=== PATIENT | female | born 1965 ===

== ENCOUNTER 2021-01-05 18:41 | Inpatient (IN) | payer MEDICAID, SELFPAY ==
[2021-01-05 18:50] VITALS: BMI 26.6
[2021-01-05 19:01] VITALS: BP 141/86; PULSE 118; RESP 18; TEMP 36.6; O2SAT 94
--- NOTE | 2021-01-05 19:50 | PC.NURSE ---
pt initially refusing to cooperate with staff, did not want to get changed into hospital gown or put on bracelet. she attempted to walk around security staff but after some reassurance she decided to cooperate and change into hospital gown. pt still refusing to wear bracelet and refusing to have vitals taken at this time. pt currently in room laying supine in bed with lights off and tv off.
--- NOTE | 2021-01-05 21:10 | PC.NURSE ---
pt still refusing vitals at this time. pt laying supine in bed. respirations even and unlabored. no signs of distress noted at this time.
[2021-01-05 22:03] VITALS: RESP 16
--- NOTE | 2021-01-05 22:41 | ED_ITS ---
HPI - Psych General Chief Complaint: Psychiatric Symptoms Stated Complaint: SECTION 12 Time Seen by Provider: 01/05/21 19:02 Source: patient and EMS Mode of arrival: EMS Limitations: no limitations History of Present Illness HPI Narrative: Patient comes to emergency room by EMS. EMS reports that the patient has a history of unspecified psychotic disorder, she was brought in on Section 12 for acting erratically, running into traffic, speaking in tongues, and being paranoid. The family called 911 due to this. Patient is here in the emergency room, states she is very angry that her family called 911, states that she came from [place] to support her daughter as she is going through divorce. States that the son-in-law is requesting that the patient gives her a copy of her ID so he can request social sciences research scientist for the family. Patient denies suicidal or homicidal ideation. Patient states that she has not been in the hospital for mental illness in more than 3 years, accepts that she has been diagnosed with depression in the past. Patient states that she is very disappointed that her daughter did not defend her from the son-in-law. Patient states she wants to go back to [place] Related Data Allergies Allergy/AdvReac Type Severity Reaction Status Date / Time No Known Allergies Allergy Verified 01/05/21 22:44 Review of Systems Review of Systems: Constitutional : No Weight loss, No Fever, No Chills, No Night Sweats, No Fatigue, No Malaise ENT/Mouth : No Hearing loss, No Ear Pain, No Nasal Congestion, No Sinus Pain, No Hoarseness, No sore throat, No Rhinorrhea, No Swallowing Difficulty Eyes: No Eye Pain, No Swelling, No Redness, No Foreign Body, No Discharge, No Vision Changes Cardiovascular : No Chest Pain, No SOB, No Dyspnea on Exertion, No Orthopnea, No Edema, No Palpitations Respiratory : No Cough, No Sputum, No Wheezing, No Smoke Exposure, No Dyspnea Gastrointestinal : No Nausea, No Vomiting, No Diarrhea, No Constipation, No abdominal Pain, No Hematochezia, No Melena Genitourinary : no irregular bleeding, No Dysuria, No Urinary Frequency, No Hematuria, No Urinary Incontinence, No Urgency, No Flank Pain, No Urinary Flow Changes, No Hesitancy Musculoskeletal : No joint pain, No Myalgias, No Joint Swelling Skin : No Skin Lesions, No rash Neuro : No Weakness, No Numbness, No Paresthesias, No Loss of Consciousness, No Dizziness, No Headache Psych : History of depression, denies suicidal or homicidal ideation, complaining of feeling angry Heme/Lymph: No Bruising, No Bleeding,No Lymphadenopathy Endocrine : No Polyuria, No Polydipsia, No Temperature Intolerance [facility] Past Medical History Medical History (Updated 01/05/21 @ 22:43 by Therese Varela MD) Depression Social History Social History Alcohol intake: never Patient Tobacco Use Status: Current everyday Tobacco user Use of substances other than those prescribed or required for medical reasons: No Physical Exam Vital Signs: Vital Signs: Last Vital Signs Temp 97.9 F 01/05/21 19:01 Pulse 118 H 01/05/21 19:01 Resp 16 01/05/21 22:03 BP 141/86 H 01/05/21 19:01 Pulse Ox 94 01/05/21 19:01 Body Mass Index 26.6 Appearance: Alert. Oriented X3. No acute distress. Eyes: Pupils equal, round and reactive to light. ENT: Pharynx normal. Neck: Normal inspection. Neck supple. No lymph nodes noted. No crepitus CVS: Normal heart rate and rhythm. Pulses normal. Normal S1 and S2 Respiratory: No respiratory distress. Breath sounds normal. No Wheezing. No rales Abdomen: Soft and nontender. No rigidity. No distention. good BS x4 Skin: Skin warm and dry. Normal skin color. Normal skin turgor. Extremities: No lower extremity edema. No lower extremity edema. No Lacerations. No Rash Neuro: Oriented X 3. No motor deficit. No sensory deficit. Moving all extermities. No slurred speech. Psych: Speaking in full sentences, good eye contact, speaking coherently Course Course Course Narrative: on arrival, patient refused blood work, urinalysis. Patient finally accepted to change her clothes. [facility] consult pending
--- NOTE | 2021-01-05 23:19 | PC.NURSE ---
pt more pleasant and cooperative at this time, conversing and laughing with tech about current situation/home situation. ice water and turkey sandwich given to pt. pt still refusing to wear bracelet. no distress noted at this time.
[2021-01-06 03:00] VITALS: RESP 16
--- NOTE | 2021-01-06 07:48 | PC.NURSE ---
Addendum entered by Karli Lind RN 01/06/21 07:50: Pt states that she does not take any medications at home. There are no medications on her external medication list. Original Note: Pt did allow for vital signs to be taken. Pt was updated on the status of her stay being informed that there was a section 12 filed and we are awaiting a bed at this time. Pt is very upset but is not violent at this time.
[2021-01-06 08:11] VITALS: BP 125/72; PULSE 81; RESP 18; TEMP 35.9; O2SAT 97
--- NOTE | 2021-01-06 11:37 | PC.NURSE ---
Pt in bed at this time. About 1hr ago pt noted to be pacing in the common area peeking in another patient's room. Pt was offered a puzzle at that time. She replied that she wanted her belongings and to go home. The plan of care and section-12 status were reviewed with her again. She then went to room to lay back down.
--- NOTE | 2021-01-06 13:28 | PC.NURSE ---
Pt ate lunch though had earlier stated that she did not want one. She brought her empty tray to nurses station counter and went villarreal to bed.
--- NOTE | 2021-01-06 16:36 | PC.NURSE ---
Pt in the shower at this time. She is non-violent at this time though appears agitated.
[2021-01-06 18:22] VITALS: BP 123/81; PULSE 63; RESP 15; O2SAT 97
--- NOTE | 2021-01-06 19:06 | PC.NURSE ---
Patient requested and given ice water. Continues to refuse lab draws at this time. Otherwise calm/cooperative. Will continue to monitor.
--- NOTE | 2021-01-07 07:26 | PC.NURSE ---
report taken from maciel gardner pt here for reported erratic behavior by family, has been non compliant w meds for several years and is recently transplanted to the area from [place]. pt sitting up at bedside, eating breakfast, requests extra sugar, provided. inpt bed search.
--- NOTE | 2021-01-07 10:10 | PC.NURSE ---
pt asking to have things and to leave, Haley been here for several days and none of this is warranted and im not obliged to stay . pt reeducated about sec 12 and inpt bed search process. pt appears agitated, sts im not from this state and nothing of mine is even here . pt asked if this rn may speak w daughter and pt appears more agitated, asks this rn is you can call the karley of this school, you can call the leaders whoever is in charge of this [facility] . this rn leaving room d/t pt verbally escalating. pt remains lying in bed nad.
[2021-01-07 10:48] VITALS: RESP 16
--- NOTE | 2021-01-07 11:17 | PC.NURSE ---
pt continues to refuse vital signs, refusing to make a lunch order choice.
--- NOTE | 2021-01-07 13:08 | PC.NURSE ---
pt ambulating around [facility], not speaking w this rn when addressed about mental status, given lunch tray, left at bedside. pt appears to be investigating differnt items on unit (posters in [place], light switches, televisions). appears to be within behavioral control att. [facility].
--- NOTE | 2021-01-07 13:23 | PC.NURSE ---
pt daughter on phone, pt expresses she wouldnt like this rn to update daughter via phone, but pt will speak w daughter on [employer] telephone.
--- NOTE | 2021-01-07 16:50 | PC.NURSE ---
dr morillo at bedside to evaluate pt
--- NOTE | 2021-01-07 17:17 | PC.NURSE ---
pt refusing to sign conditional voluntary w dr morillo, dr morillo signed sec 12 in pt chart for inpt admission.
--- NOTE | 2021-01-07 19:26 | PC.NURSE ---
Report from Cesar RN, pt sleeping at this time, resp reg and even, NAD> Plan for M5 admission.
[2021-01-07 22:24] VITALS: RESP 16
[2021-01-07 23:48] VITALS: BP 121/73; PULSE 72; RESP 16; TEMP 35.8; O2SAT 97
[2021-01-08 07:28] VITALS: RESP 16
[2021-01-08 08:40] VITALS: RESP 15
--- NOTE | 2021-01-08 10:19 | PC.NURSE ---
cleopatra (social work lecturer) at bedside, pt is refusing covid swab, lab work and vs. pt continues to state that she is involuntary and is refusing all tx and care.
--- NOTE | 2021-01-08 10:22 | PC.NURSE ---
pt continues to states that she wants her belongings and she wants to leave this place
[2021-01-08 10:23] VITALS: RESP 16
--- NOTE | 2021-01-08 11:35 | PC.NURSE ---
dr. aguayo and [facility] ([facility]) at bedside encouraging pt to have covid swab done, pt is still adamantly refusing. pt is in bed resting at this time.
--- NOTE | 2021-01-08 13:33 | PC.NURSE ---
pt refused lunch. pt was offered/encouraged fluids. pt refused a sandwich and crackers.
[2021-01-08 14:29] VITALS: RESP 16
--- NOTE | 2021-01-08 15:36 | MHC.CARE ---
1400 Left message for patient's sister who is listed as emergency contact, left number for POD RN. If she calls back please ask if possibly patient has had a COVID vaccination.
--- NOTE | 2021-01-08 15:57 | PM.PSYCN ---
History of Present Illness Date of Service: 01/07/21 Chief Complaint: SECTION 12 Reason for Consult: assess HPI Narrative: pt refused to speak with signwriter or answer any of writers questions except to say no thankyou when offered CV. Given report of patients recent hx (disorganized, running in traffic) and current presentation, signwriter signed Section 12 a/b for inpt admission to further assess patient for her safety. [facility] Medical History (Updated 01/05/21 @ 22:43 by Therese Varela MD) Depression Diagnostics Vital Signs (24Hr): Vital Signs - 24 hr 01/07/21 22:24 01/07/21 23:48 01/08/21 07:28 Temperature 96.5 F L Pulse Rate 72 Respiratory Rate 16 16 16 Blood Pressure 121/73 Pulse Oximetry 97 01/08/21 08:40 01/08/21 10:23 01/08/21 14:29 Temperature Pulse Rate Respiratory Rate 15 16 16 Blood Pressure Pulse Oximetry Body Mass Index 26.6 Medications Medications Current Medications Generic Name Dose Route Start Last Admin Trade Name Freq PRN Reason Stop Dose Admin Pharmacy Consult 1 each 01/08/21 08:04 Consult Rx Perform Med Rec MISCELLANE ONCE PRN Consult order Allergies Allergies Allergy/AdvReac Type Severity Reaction Status Date / Time No Known Allergies Allergy Verified 01/05/21 22:44 Assessment & Plan Greater than 50% of the session was spent on counseling and/or coordination of care
--- NOTE | 2021-01-08 17:25 | PC.NURSE ---
pt is answering nursing staff questions, explained that patient needed covid test to continue plan of care,pt refuses states it is DNA that legitimizes her legal holding stand point and she does not believe there is documentation legitimizing her being held here in ED. education and redirection provided. pt continues to refuse treatment. pt toileted self prior to rn interaction. offered dinner tray order.
--- NOTE | 2021-01-08 18:34 | PC.NURSE ---
pt given dinner tray, asked if she would like to perform the covid swab at this time. pt refused.
[2021-01-09] VITALS: RESP 16
--- NOTE | 2021-01-09 00:48 | PC.NURSE ---
PATIENT IS AMBULATING STEADILY AROUND THE UNIT. ATTEMPTING VITALS AND TALKING WITH PATIENT ABOUT LAB WORK. REFUSING ALL TREATMENT AT THIS TIME. BEING RUDE TO STAFF, CALLING ONE STAFF MEMBER YOU ARE FATTER AND SHORTER THAN I REMEMBER
[2021-01-09 06:00] VITALS: RESP 14
--- NOTE | 2021-01-09 07:15 | PC.NURSE ---
pt sleeping in bed at this time, resp even and unlabored. plan to get covid swab today.
--- NOTE | 2021-01-09 09:23 | P.CNPS_ITS ---
History of Present Illness Date of Service: 01/09/21 Chief Complaint: SECTION 12 HPI Narrative: engineering writer went to meet with patient again; she looked at engineering writer but refused to talk or respond to writers questions. As engineering writer continued to try and engage patient, pt put covers over her head and remained silent. [facility] Medical History (Updated 01/05/21 @ 22:43 by Therese Varela MD) Depression Diagnostics Vital Signs (24Hr): Vital Signs - 24 hr 01/08/21 10:23 01/08/21 14:29 01/09/21 00:00 Respiratory Rate 16 16 16 01/09/21 06:00 Respiratory Rate 14 Body Mass Index 26.6 Medications Medications Current Medications Generic Name Dose Route Start Last Admin Trade Name Freq PRN Reason Stop Dose Admin Pharmacy Consult 1 each 01/08/21 08:04 Consult Rx Perform Med Rec MISCELLANE ONCE PRN Consult order Allergies Allergies Allergy/AdvReac Type Severity Reaction Status Date / Time No Known Allergies Allergy Verified 01/05/21 22:44 Assessment & Plan Greater than 50% of the session was spent on counseling and/or coordination of care
--- NOTE | 2021-01-09 09:27 | PC.NURSE ---
call placed to homer olea for more info regarding pt. pt recently moved from [place] to live with her daughter (who is listed as sister in contacts) and son in law. awais called homer olea for section 12 transport assitance to [facility]. Nuha Stroud in pod to assist with calling family.
--- NOTE | 2021-01-09 12:12 | PC.NURSE ---
plan for patient to go to at some time today. spoke with oksana daily and isolation area will be okayed for this patient. plan for transport with security will be created with rest of team today.
[2021-01-09 13:51] VITALS: RESP 16
[2021-01-09 15:08] LABS: COVID-19 Test Negative (Negative)
--- NOTE | 2021-01-09 16:13 | PC.ADMIT ---
WHEN T/W APPROACHED PT TO CONDUCT ADMISSION PROCESS PT. STATED I'M NOT SIGNING MYSELF INTO THIS HOSPITAL, NO, I'M NOT DOING ANYTHING , THERE IS NOTHING WRONG WITH ME, I DON'T NEED THIS KIND OF BEHAVIOR. PT. REFUSED VS, SHE REFUSED ADMISSION PROCESS AND NURSING CARE WHILE PT. SAT IN GROUP ROOM B, IN ROCKING CHAIR, GOING BACK AND FORTH. SHE TALKED TO HERSELF, WHISPERED, PT. HAS DX OF SCHIZOPHRENIA. THERE ARE NO MEDICATIONS, NO LABS DONE, NO EMERGENCY -CONTACTS, NO PCP. PT. IS HERE ON A 12 B .
[2021-01-09 16:31] VITALS: RESP 18
--- NOTE | 2021-01-09 16:31 | P.HPPS_ITS ---
HPI Chief Complaint: Assess for safety psychosis Sources of Information: patient interviewed, chart reviewed and crisis/core team assessment reviewed Additional Sources of Information: Patient's daughter gave field underwriter history HPI Subjective Notes: Duarte Warning Medical Evaluation Reviewed: Yes PMFSH Medical History (Updated 01/09/21 @ 15:52 by Valorie Ahuja) ADHD Chronic uveitis of both eyes Cystoid macular edema Depression GERD (gastroesophageal reflux disease) MDD (major depressive disorder) Migraine Ovarian cyst Prediabetes Premenstrual dysphoric disorder Schizophrenia Surgical History (Updated 01/09/21 @ 14:11 by Valorie Ahuja) History of salpingo-oophorectomy Diagnostics Vital Signs (24Hr): Vital Signs - 24 hr 01/09/21 00:00 01/09/21 06:00 01/09/21 13:51 Respiratory Rate 16 14 16 Body Mass Index 26.6 Labs Labs: Laboratory Results - last 48 hr 01/09/21 14:41 COVID-19 (THEO) Negative COVID-19 Clin Com See Note Meds/Allergies Meds Home Medications Acetaminophen (Acetaminophen 325 Mg Tablet) 650 mg PO Q6H PRN PRN Reason: Headache/Pain Mild Scale (1-3) Al Hydroxide/Mg Hydroxide (Magnesium Hydrox/Alum Hydrox 30 Ml Oral.Susp) 30 ml PO Q6H PRN PRN Reason: Heartburn/Nausea Diphenhydramine HCl (Diphenhydramine Hcl 25 Mg Tablet) 50 mg PO Q4H PRN PRN Reason: agitation Haloperidol (Haloperidol 5 Mg Tablet) 5 mg PO Q4H PRN PRN Reason: agitation Hydroxyzine HCl (Hydroxyzine Hcl 25 Mg Tablet) 25 mg PO TID PRN PRN Reason: Anxiety Lorazepam (Lorazepam 1 Mg Tablet) 2 mg PO Q4H PRN PRN Reason: agitation Magnesium Hydroxide (Milk Of Magnesia 30 Ml Oral.Susp) 30 ml PO DAILY PRN PRN Reason: Constipation Pharmacy Consult (Consult Rx Perform Med Rec) 1 each MISCELLANE ONCE PRN PRN Reason: Consult order Allergies Allergies Allergy/AdvReac Type Severity Reaction Status Date / Time No Known Allergies Allergy Verified 01/05/21 22:44
--- NOTE | 2021-01-10 08:01 | PC.NURSE ---
Patient refusing COVID test and refusing to speak to anyone. Daughter Dianna notified and Son in Law Jim Gallegos notified. Son in Law called back and gave us some background information. Jim said that about a month ago he and his went out to [place] to pick and shovel worker patient as the house that was left to her in trust by her dad who had passed a year ago, was in total disarray. He said patient had not been keeping up with the bills and the house was going to go into [employer] so they went out to sell the house and to bring the patient back to [facility]. He reported the first week went well but then the patient started to decompensate: Locking he and his family out of the house, smoking in her room, not engaging with them and constantly talking to herself. He said patient has a long history of mental illness but had been off meds for about 8 years and had been being taken care of by her father until his passing. 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 Because of her current behaviors he and his notified [facility] for a crisis assessment. They found patient to need inpatient level of care and she was transported [place] [facility] Patient was in the emergency room pod when I made attempts to speak to her about needing a COVID test and labwork. She remained mute. I went back down when I heard her daughter was here. Daughter was able to assist us in getting the COVID swab but per staff report after doing swab, patient bit it. Daughter also assisted in the transport from the pod to [facility], patient was extremely irritable and yelling but eventually sat in the W/C for transport. Patient came to [facility] without incident.
--- NOTE | 2021-01-10 10:40 | P.HPPS_ITS ---
HPI Chief Complaint: Assess for safety psychosis Sources of Information: patient interviewed, chart reviewed and crisis/core team assessment reviewed Additional Sources of Information: daughter Dianna Jean-Baptiste HPI Subjective Notes: Duarte Warning (Duarte warning given including mention that patients participation is voluntary and the possibility of court ordered involuntary commitment and treatment with antipsychotics. ), Conditional Voluntary and Section 12B Narrative: Patient is a 55-year-old female with history of psychotic illness, diagnosed with schizophrenia later in life at around 52 years old, who presents with increasing disorganized behavior, paranoid thinking and psychotic symptoms. Patient is selectively mute and mostly refused to talk to automobile and property underwriter. Patient was awake and alert on approach, lying in bed, watching TV. Stitching Machine Feeder Or Offbearer reintroduced himself, gave Duarte warning again and tried to empathize with patients not wanting to be here, however patient remained silent only to eventually say that ?this is all a Sham ?and that she did not want to speak to automobile and property underwriter. Stitching Machine Feeder Or Offbearer again attempted to engage patient who reiterated she did not want to talk to automobile and property underwriter and said you may be excused. On day of admission, patient's daughter, Dianna Jean-Baptiste, accompanied the patient from the emergency room to this psychiatric floor. She wanted to give automobile and property underwriter a history of her mothers illness and automobile and property underwriter listened to her report (automobile and property underwriter did not give out any information about her mother). Patient's daughter explained that the recent history of this presenting illness started in December 2020 when she helps her mother moved from [place] to [place] to live with her, her and her 12-year-old son. She said it was tolerable at 1st and she and her family accepted that patient would talk to herself throughout the day. While at the house, patient would do laundry and other chores, would eat what was provided to her by her daughter and bathes regularly. At 1 point however, patient locked herself in her room and would loudly talk gibberish all night. Adri on started to notice that items began to go missing from around the house. She says her mother started unplugging everything in the house and would sneak into her 12-year-old son's room and unplugged things. Grandson began to become scared and avoid her. Patient refused to get on [employer] insurance. Daughter says she was paranoid and refused to sign any paperwork feeling it was unsafe to do so; she says she was constantly worried of Technology. Daughter says that her mother says things that she has kisney, and will ?the candle eyes ?which is speaking in a gibberish language which patient described as giving spirits of voice. Patient's self dialoguing increased in intensity and she started talking nonstop, it all day and all night, not sleeping. Patient's 12 yo grandson became more scared and eventually moved out to live with family nearby. Daughter found her mother to be impossible to redirect and called crisis which made patient very angry. Patient then said she was going to walk to the airport and fly back to [place], left the house without any money, without her glasses (patient can see very little without glasses) and without any plan other than to walk to the airport, and started doing so in the middle of a busy street. Either crisis or daughter had patient brought to the emergency room for her own safety. Daughter tells automobile and property underwriter that patient thinks that everything happening is a fraud, that all the staff here are actors in some conspiracy and does not think her mother will comply with treatment at all. Psychiatric history: Patient's daughter Dianna says that the patient had no obvious psychiatric illness until around 49 years old. She said that growing up, her mother was a chronic daily alcoholic and daughter ended up moving out of the house when she was 14 years old to live with her father. Patients and are but patient's ex- remains supportive. Daughter describes her mother as hardworking and smart. 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 She said that some people might call her mother ?squirchidi? and pt would sometimes have mildly inappropriate emotional reactions to situations, but this was subtle and did not raise any red flags. Patient was diagnosed with PMDD in 2009 and then MDD in 2010. She was working on her master's degree in 2013 when she had the onset of degenerative eye disease and had trouble seeing. She was put on medications for this which daughter thought made her mother loopy. The patient lost her job either because she was ?loopy ?or because she could not see it is unclear, but patient refused to be assessed and expressed much distrustfulness of doctors. In 2017 patient's father and daughter says that her mother ?snapped.? She said her mother grew very paranoid, would destroy things in the house, once tearing up a wall, was 1 time found sleeping in the driveway by neighbors and would talk about people spying on them. Patient was psychiatrically hospitalized 2-3 times and diagnosed with schizophrenia. However patient refused to take any medications or follow up with any providers upon discharge. Since 2018 patient was living on her own in her own house using care home benefits. However she was not paying any bills at all and the only reason that bills, electricity were paid for was because various family members did so on her behalf. Daughter says patient would frequently self dialogue and talk back to voices she was hearing. She says her mother never left the house and when she went to visit her, found the house almost totally empty with no food in it at all. That is when daughter convinced her mother this past December 2020 to sell the house and move with her to [place]. Patient's daughter said that she loves her mother and is fearful for her safety. She cannot come back to live with them as daughter finds her uncontrollable and that her son does not feel safe around her. Daughter does not think that her mother is organized enough to get her own food. She says she will eat if something is presented to her but does not think she would be able to get to a store and get food for herself. She does not think her mother is organized enough to look for housing on her own, or use finances to take care of herself. Daughter says mother has no known allergies to medications Medical Evaluation Reviewed: Yes (pt was selectively mute with ED staff) [facility] Medical History (Updated 01/10/21 @ 15:32 by Chas Maciel) ADHD Alcohol abuse Chronic uveitis of both eyes Cystoid macular edema Depression GERD (gastroesophageal reflux disease) MDD (major depressive disorder) Migraine Ovarian cyst Prediabetes Premenstrual dysphoric disorder Schizophrenia Schizophrenia Surgical History History of salpingo-oophorectomy Family History: Patient's father had a brain tumor Social History: See above Substance History: Chronic alcoholism most patient's adult life; none currently Trauma History: Unknown Diagnostics Vital Signs (24Hr): Vital Signs - 24 hr 01/09/21 13:51 01/09/21 16:31 Respiratory Rate 16 18 Body Mass Index 26.6 Labs Labs: Laboratory Results - last 48 hr 01/09/21 14:41 COVID-19 (THEO) Negative COVID-19 Clin Com See Note Meds/Allergies Meds Home Medications Acetaminophen (Acetaminophen 325 Mg Tablet) 650 mg PO Q6H PRN PRN Reason: Headache/Pain Mild Scale (1-3) Al Hydroxide/Mg Hydroxide (Magnesium Hydrox/Alum Hydrox 30 Ml Oral.Susp) 30 ml PO Q6H PRN PRN Reason: Heartburn/Nausea Diphenhydramine HCl (Diphenhydramine Hcl 25 Mg Tablet) 50 mg PO Q4H PRN PRN Reason: agitation Haloperidol (Haloperidol 5 Mg Tablet) 5 mg PO Q4H PRN PRN Reason: agitation Hydroxyzine HCl (Hydroxyzine Hcl 25 Mg Tablet) 25 mg PO TID PRN PRN Reason: Anxiety Lorazepam (Lorazepam 1 Mg Tablet) 2 mg PO Q4H PRN PRN Reason: agitation Magnesium Hydroxide (Milk Of Magnesia 30 Ml Oral.Susp) 30 ml PO DAILY PRN PRN Reason: Constipation Nicotine Polacrilex (Nicotine Polacrilex 2 Mg Gum) 2 mg BUCCAL Q2H PRN PRN Reason: Nicotine Cravings Pharmacy Consult (Consult Rx Perform Med Rec) 1 each MISCELLANE ONCE PRN PRN Reason: Consult order Allergies Allergies Allergy/AdvReac Type Severity Reaction Status Date / Time No Known Allergies Allergy Verified 01/05/21 22:44 Mental Status Exam Mental Status Exam Narrative: Pt is alert and oriented to self, but not situation; behavior is guarded and uncooperative. Patient lying in bed, dressed in casual attire with adequate hygiene; mood is described as angry and affect congruent; eye contact either glaring or avoidant; Speech is normal rate, volume and prosody and not pressured; no psychomotor agitation/retardation present; thought process is difficult to assess as patient does not talk much, but has been goal oriented. Thought content is on that this admission is a fraud. Positive for paranoid delusions; no known history of SI or HI. Reported self dialogue and auditory hallucinations. Patients insight and judgment appear impaired. Assessment & Plan Assessment & Plan (1) Schizophrenia: Status: Acute Qualifiers: Schizophrenia type: paranoid schizophrenia Qualified Code(s): F20.0 - Paranoid schizophrenia Code(s): F20.9 - Schizophrenia, unspecified Assessment and Plan: IMPRESSION: Patient is a 55-year-old female with history of psychotic illness, diagnosed with schizophrenia later in life at around 52 years old, who presents with increasing disorganized behavior, paranoid thinking and psychotic symptoms. Patient is selectively mute and mostly refused to talk to automobile and property underwriter. Patient is currently refusing treatment and is on a Section 12. Patient is not able to return to live with her daughter, has no where to go, has a reported history of inability to manage finances and recently demonstrated disorganized behavior by walking in the middle of traffic. She lacks insight into condition will not even explain to automobile and property underwriter or thus far staff why she does not belong in a psychiatric hospital. Given patient's current presentation and collateral report from her daughter, it is automobile and property underwriter's opinion that patient needs psychiatric admission for her own safety. Plan Patient on Section 12b Will likely file for involuntary commitment for patient's safety and well-being Patient has been refusing treatment, frequently vitals Will not schedule medications quite yet in effort to avoid exacerbating patient's irritation; hopefully as patient becomes a little more acclimated on the unit, discussion of medication can be initiated Reason for continued inpatient stay Substantial Risk for: inability to function and med/psych decompensation
[2021-01-10 17:51] VITALS: RESP 14
--- NOTE | 2021-01-11 09:10 | HO.PSYCHPN ---
Subjective Subjective Date of Service: 01/11/21 Reason For Visit: Assess for safety psychosis Interim History: Director Of Business Continuity saw patient with social abhay Thompson Patient was sitting in chair reading a book. Director Of Business Continuity again explained that she does not have to talk at all if she does not want to. Patient said she did not want to talk with assembly instructions writer or social security specialist. Director Of Business Continuity accepted this however took a moment to explain that on Thursday the hospital has to make a choice between whether to ask a arc cutter to involuntarily commit patient or to discharge patient and tried to explain the concern for her safety. Director Of Business Continuity also asked patient about if she was willing to have a head CT. She did not answer about the head CT, but said she is not a resident of this state and if we want to go to court that's fine, but she hopes that we won't. However, she reiterated that she not willing to talk with us any further. She then said have a nice afternoon and interview was concluded. Mental Status Exam Mental Status Exam Narrative: Pt is alert and oriented to self, but not situation; behavior is guarded and uncooperative. Patient appropriately dressed in casual attire with adequate hygiene; mood is described as angry and affect congruent; eye contact either glaring or avoidant; Speech is normal rate, volume and prosody and not pressured; no psychomotor agitation/retardation present; thought process linear and goal oriented. Thought content is on that this admission is a fraud, wrongness of hospitalization but otherwise difficult to assess as patient not willing to engage in discourse. Positive for paranoid delusions per collateral; no known history of SI or HI. Reported self dialogue and auditory hallucinations. Patients insight and judgment appear impaired. Diagnostics Vital Signs (24Hr): Vital Signs - 24 hr 01/10/21 17:51 Respiratory Rate 14 Body Mass Index 26.6 Labs Labs: Laboratory Results - last 48 hr 01/09/21 14:41 COVID-19 (THEO) Negative COVID-19 Clin Com See Note Medications Medications Current Medications Generic Name Dose Route Start Last Admin Trade Name Freq PRN Reason Stop Dose Admin Acetaminophen 650 mg 01/09/21 15:13 Acetaminophen 325 Mg Tablet PO Q6H PRN Headache/Pain Mild Scale (1-3) Al Hydroxide/Mg Hydroxide 30 ml 01/09/21 15:13 Magnesium Hydrox/Alum Hydrox 30 Ml Oral.Susp PO Q6H PRN Heartburn/Nausea Diphenhydramine HCl 50 mg 01/09/21 15:13 Diphenhydramine Hcl 25 Mg Tablet PO Q4H PRN agitation Haloperidol 5 mg 01/09/21 15:13 Haloperidol 5 Mg Tablet PO Q4H PRN agitation Hydroxyzine HCl 25 mg 01/09/21 15:13 Hydroxyzine Hcl 25 Mg Tablet PO TID PRN Anxiety Lorazepam 2 mg 01/09/21 15:13 Lorazepam 1 Mg Tablet PO Q4H PRN agitation Magnesium Hydroxide 30 ml 01/09/21 15:13 Milk Of Magnesia 30 Ml Oral.Susp PO DAILY PRN Constipation Nicotine Polacrilex 2 mg 01/10/21 13:33 Nicotine Polacrilex 2 Mg Gum BUCCAL Q2H PRN Nicotine Cravings Pharmacy Consult 1 each 01/08/21 08:04 Consult Rx Perform Med Rec MISCELLANE ONCE PRN Consult order Allergies Allergies Allergy/AdvReac Type Severity Reaction Status Date / Time No Known Allergies Allergy Verified 01/05/21 22:44 Assessment & Plan Assessment & Plan (1) Schizophrenia: Qualifiers: Schizophrenia type: paranoid schizophrenia Qualified Code(s): F20.0 - Paranoid schizophrenia Status: Acute Code(s): F20.9 - Schizophrenia, unspecified Assessment and Plan: IMPRESSION: Patient is a 55-year-old female with history of psychotic illness, diagnosed with schizophrenia later in life at around 52 years old, who presents with increasing disorganized behavior, paranoid thinking and psychotic symptoms. Patient is selectively mute and mostly refused to talk to assembly instructions writer. Patient is currently refusing treatment and is on a Section 12. Patient is not able to return to live with her daughter, has no where to go, has a reported history of inability to manage finances and recently demonstrated disorganized behavior by walking in the middle of traffic. She lacks insight into condition will not even explain to assembly instructions writer or thus far staff why she does not belong in a psychiatric hospital. Given patient's current presentation and collateral report from her daughter, it is assembly instructions writer's opinion that patient needs psychiatric admission for her own safety. Plan Patient on Section 12b Will likely file for involuntary commitment for patient's safety and well-being Patient has been refusing treatment, conversation, vitals Will not schedule medications quite yet in effort to avoid exacerbating patient's irritation; hopefully as patient becomes a little more acclimated on the unit, discussion of medication can be initiated pt refuses head CT Greater than 50% of the session was spent on counseling and/or coordination of care Reason for contiued inpatient stay Substantial Risk for: rapid decompensation
[2021-01-11 16:25] VITALS: RESP 16
[2021-01-11 17:41] VITALS: RESP 16
--- NOTE | 2021-01-12 09:14 | HO.PSYCHPN ---
Subjective Subjective Date of Service: 01/12/21 Reason For Visit: Assess for safety psychosis Interim History: pt lying in bed, awake. When she saw engineering technical writer approaching, she pulled covers over her head and said, i have nothing to say to you, thank you, colby. Professor Of Musicology complied. nursing staff reports pt called 911 last night, saying she's being held captive Mental Status Exam Mental Status Exam Narrative: Pt is alert and oriented to self, but not situation; behavior is guarded and uncooperative. Patient lying in bed, under covers; mood is described as angry and affect congruent; eye contact either glaring or avoidant; Speech is normal rate, volume and prosody and not pressured; no psychomotor agitation/retardation present; thought process linear and goal oriented. Thought content is on that this admission is a fraud, wrongness of hospitalization but otherwise difficult to assess as patient not willing to engage in discourse. Positive for paranoid delusions per collateral; no known history of SI or HI. Reported self dialogue and auditory hallucinations. Patients insight and judgment appear impaired. Diagnostics Vital Signs (24Hr): Vital Signs - 24 hr 01/11/21 16:25 01/11/21 17:41 Respiratory Rate 16 16 Body Mass Index 26.6 Medications Medications Current Medications Generic Name Dose Route Start Last Admin Trade Name Freq PRN Reason Stop Dose Admin Acetaminophen 650 mg 01/09/21 15:13 Acetaminophen 325 Mg Tablet PO Q6H PRN Headache/Pain Mild Scale (1-3) Al Hydroxide/Mg Hydroxide 30 ml 01/09/21 15:13 Magnesium Hydrox/Alum Hydrox 30 Ml Oral.Susp PO Q6H PRN Heartburn/Nausea Diphenhydramine HCl 50 mg 01/09/21 15:13 Diphenhydramine Hcl 25 Mg Tablet PO Q4H PRN agitation Haloperidol 5 mg 01/09/21 15:13 Haloperidol 5 Mg Tablet PO Q4H PRN agitation Hydroxyzine HCl 25 mg 01/09/21 15:13 Hydroxyzine Hcl 25 Mg Tablet PO TID PRN Anxiety Lorazepam 2 mg 01/09/21 15:13 Lorazepam 1 Mg Tablet PO Q4H PRN agitation Magnesium Hydroxide 30 ml 01/09/21 15:13 Milk Of Magnesia 30 Ml Oral.Susp PO DAILY PRN Constipation Nicotine Polacrilex 2 mg 01/10/21 13:33 Nicotine Polacrilex 2 Mg Gum BUCCAL Q2H PRN Nicotine Cravings Pharmacy Consult 1 each 01/08/21 08:04 Consult Rx Perform Med Rec MISCELLANE ONCE PRN Consult order Allergies Allergies Allergy/AdvReac Type Severity Reaction Status Date / Time No Known Allergies Allergy Verified 01/05/21 22:44 Assessment & Plan Assessment & Plan (1) Schizophrenia: Qualifiers: Schizophrenia type: paranoid schizophrenia Qualified Code(s): F20.0 - Paranoid schizophrenia Status: Acute Code(s): F20.9 - Schizophrenia, unspecified Assessment and Plan: IMPRESSION: Patient is a 55-year-old female with history of psychotic illness, diagnosed with schizophrenia later in life at around 52 years old, who presents with increasing disorganized behavior, paranoid thinking and psychotic symptoms. Patient is selectively mute and mostly refused to talk to engineering technical writer. Patient is currently refusing treatment and is on a Section 12. Patient is not able to return to live with her daughter, has no where to go, has a reported history of inability to manage finances and recently demonstrated disorganized behavior by walking in the middle of traffic. She lacks insight into condition will not even explain to engineering technical writer or thus far staff why she does not belong in a psychiatric hospital. Given patient's current presentation and collateral report from her daughter, it is engineering technical writer's opinion that patient needs psychiatric admission for her own safety. Hospital course: no changes; continues to refuse to engage with staff, with treatment. Discussed case with team and patients daughter. Patient is now homeless and can not return to daughters house as child his scared and pt's behaviors too overwhelming (daughter implies she would by open to having mother come back if adherent with effective treatment); pt is disorganized with a psychotic illness which impairs her ability to care for herself in the community; she has no insight and judgment is impaired. Team agrees that it's necessary to petition court for civil commitment for patients safety. 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 Given that the onset of a psychotic illness is uncommon this late in life, pt would benefit from a medical workup to assess if there are any medical issues contributing to her symptoms; currently she refuses. Plan Patient on Section 12b Will likely file for involuntary commitment for patient's safety and well-being Patient has been refusing treatment, conversation, vitals Will not schedule medications quite yet in effort to avoid exacerbating patient's irritation; hopefully as patient becomes a little more acclimated on the unit, discussion of medication can be initiated pt refuses head CT Greater than 50% of the session was spent on counseling and/or coordination of care Reason for contiued inpatient stay Substantial Risk for: inability to function
[2021-01-12 16:26] VITALS: RESP 16
[2021-01-13 17:00] VITALS: RESP 16
--- NOTE | 2021-01-13 17:51 | HO.PSYCHPN ---
Subjective Subjective Date of Service: 01/13/21 Reason For Visit: Assess for safety psychosis Interim History: upon approach, pt said she does not want to talk, that she's not even supposed to be here and that senior technical writer should be working to get her out of here. Statue Maker offered to discuss matter but then patient said she does not believe that senior technical writer has the credentials to help her. staff reports pt does not talk with staff; will leave her room to get food but otherwise remains mostly isolated Mental Status Exam Mental Status Exam Narrative: Pt is alert and oriented to self, but not situation; behavior is guarded and uncooperative. Patient lying in bed, under covers; mood is described as angry and affect congruent; eye contact either glaring or avoidant; Speech is normal rate, volume and prosody and not pressured; no psychomotor agitation/retardation present; thought process linear and goal oriented. Thought content is on that this admission is a fraud, wrongness of hospitalization but otherwise difficult to assess as patient not willing to engage in discourse. Positive for paranoid delusions per collateral; no known history of SI or HI. Reported self dialogue and auditory hallucinations. Patients insight and judgment appear impaired. Diagnostics Vital Signs (24Hr): Vital Signs - 24 hr 01/13/21 17:00 Respiratory Rate 16 Body Mass Index 26.6 Medications Medications Current Medications Generic Name Dose Route Start Last Admin Trade Name Freq PRN Reason Stop Dose Admin Acetaminophen 650 mg 01/09/21 15:13 Acetaminophen 325 Mg Tablet PO Q6H PRN Headache/Pain Mild Scale (1-3) Al Hydroxide/Mg Hydroxide 30 ml 01/09/21 15:13 Magnesium Hydrox/Alum Hydrox 30 Ml Oral.Susp PO Q6H PRN Heartburn/Nausea Diphenhydramine HCl 50 mg 01/09/21 15:13 Diphenhydramine Hcl 25 Mg Tablet PO Q4H PRN agitation Haloperidol 5 mg 01/09/21 15:13 Haloperidol 5 Mg Tablet PO Q4H PRN agitation Hydroxyzine HCl 25 mg 01/09/21 15:13 Hydroxyzine Hcl 25 Mg Tablet PO TID PRN Anxiety Lorazepam 2 mg 01/09/21 15:13 Lorazepam 1 Mg Tablet PO Q4H PRN agitation Magnesium Hydroxide 30 ml 01/09/21 15:13 Milk Of Magnesia 30 Ml Oral.Susp PO DAILY PRN Constipation Nicotine Polacrilex 2 mg 01/10/21 13:33 Nicotine Polacrilex 2 Mg Gum BUCCAL Q2H PRN Nicotine Cravings Pharmacy Consult 1 each 01/08/21 08:04 Consult Rx Perform Med Rec MISCELLANE ONCE PRN Consult order Allergies Allergies Allergy/AdvReac Type Severity Reaction Status Date / Time No Known Allergies Allergy Verified 01/05/21 22:44 Assessment & Plan Assessment & Plan (1) Schizophrenia: Qualifiers: Schizophrenia type: paranoid schizophrenia Qualified Code(s): F20.0 - Paranoid schizophrenia Status: Acute Code(s): F20.9 - Schizophrenia, unspecified Assessment and Plan: IMPRESSION: Patient is a 55-year-old female with history of psychotic illness, diagnosed with schizophrenia later in life at around 52 years old, who presents with increasing disorganized behavior, paranoid thinking and psychotic symptoms. Patient is selectively mute and mostly refused to talk to senior technical writer. Patient is currently refusing treatment and is on a Section 12. Patient is not able to return to live with her daughter, has no where to go, has a reported history of inability to manage finances and recently demonstrated disorganized behavior by walking in the middle of traffic. She lacks insight into condition will not even explain to senior technical writer or thus far staff why she does not belong in a psychiatric hospital. Given patient's current presentation and collateral report from her daughter, it is senior technical writer's opinion that patient needs psychiatric admission for her own safety. Hospital course: no changes; continues to refuse to engage with staff, with treatment. Discussed case with team and patients daughter. Patient is now homeless and can not return to daughters house as child his scared and pt's behaviors too overwhelming (daughter implies she would by open to having mother come back if adherent with effective treatment); pt is disorganized with a psychotic illness which impairs her ability to care for herself in the community; she has no insight and judgment is impaired. Team agrees that it's necessary to petition court for civil commitment for patients safety. 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 Given that the onset of a psychotic illness is uncommon this late in life, pt would benefit from a medical workup to assess if there are any medical issues contributing to her symptoms; currently she refuses. Plan Patient on Section 12b Will likely file for involuntary commitment for patient's safety and well-being Patient has been refusing treatment, conversation, vitals Will not schedule medications quite yet in effort to avoid exacerbating patient's irritation; hopefully as patient becomes a little more acclimated on the unit, discussion of medication can be initiated pt refuses head CT Greater than 50% of the session was spent on counseling and/or coordination of care Reason for contiued inpatient stay Substantial Risk for: med/psych decompensation
--- NOTE | 2021-01-14 10:01 | HO.PSYCHPN ---
Subjective Subjective Date of Service: 01/14/21 Reason For Visit: Assess for safety psychosis Subjective Notes: Section 12B Interim History: freelance writer informed patient of decision to ask court for involuntary commitment. Patient was visibly angry, yelled at freelance writer that this is false hospitalization, that she is not unsafe and that she wants a police report. Copy Cutter explained that she will be assigned an senior trial attorney and attempted to engage further but pt yelled at freelance writer to leave room and that conversation was over. Mental Status Exam Mental Status Exam Narrative: no changes: Pt is alert and oriented to self, but not situation; behavior is guarded and uncooperative. Patient lying in bed, under covers; mood is described as angry and affect congruent; eye contact either glaring or avoidant; Speech is normal rate, volume and prosody and not pressured; no psychomotor agitation/retardation present; thought process linear and goal oriented. Thought content is on that this admission is a fraud, wrongness of hospitalization but otherwise difficult to assess as patient not willing to engage in discourse. Positive for paranoid delusions per collateral; no known history of SI or HI. Reported self dialogue and auditory hallucinations. Patients insight and judgment appear impaired. Diagnostics Vital Signs (24Hr): Vital Signs - 24 hr 01/13/21 17:00 Respiratory Rate 16 Body Mass Index 26.6 Medications Medications Current Medications Generic Name Dose Route Start Last Admin Trade Name Freq PRN Reason Stop Dose Admin Acetaminophen 650 mg 01/09/21 15:13 Acetaminophen 325 Mg Tablet PO Q6H PRN Headache/Pain Mild Scale (1-3) Al Hydroxide/Mg Hydroxide 30 ml 01/09/21 15:13 Magnesium Hydrox/Alum Hydrox 30 Ml Oral.Susp PO Q6H PRN Heartburn/Nausea Diphenhydramine HCl 50 mg 01/09/21 15:13 Diphenhydramine Hcl 25 Mg Tablet PO Q4H PRN agitation Haloperidol 5 mg 01/09/21 15:13 Haloperidol 5 Mg Tablet PO Q4H PRN agitation Hydroxyzine HCl 25 mg 01/09/21 15:13 Hydroxyzine Hcl 25 Mg Tablet PO TID PRN Anxiety Lorazepam 2 mg 01/09/21 15:13 Lorazepam 1 Mg Tablet PO Q4H PRN agitation Magnesium Hydroxide 30 ml 01/09/21 15:13 Milk Of Magnesia 30 Ml Oral.Susp PO DAILY PRN Constipation Nicotine Polacrilex 2 mg 01/10/21 13:33 Nicotine Polacrilex 2 Mg Gum BUCCAL Q2H PRN Nicotine Cravings Pharmacy Consult 1 each 01/08/21 08:04 Consult Rx Perform Med Rec MISCELLANE ONCE PRN Consult order Allergies Allergies Allergy/AdvReac Type Severity Reaction Status Date / Time No Known Allergies Allergy Verified 01/05/21 22:44 Assessment & Plan Assessment & Plan (1) Schizophrenia: Qualifiers: Schizophrenia type: paranoid schizophrenia Qualified Code(s): F20.0 - Paranoid schizophrenia Status: Acute Code(s): F20.9 - Schizophrenia, unspecified Assessment and Plan: IMPRESSION: Patient is a 55-year-old female with history of psychotic illness, diagnosed with schizophrenia later in life at around 52 years old, who presents with increasing disorganized behavior, paranoid thinking and psychotic symptoms. Patient is selectively mute and mostly refused to talk to freelance writer. Patient is currently refusing treatment and is on a Section 12. Patient is not able to return to live with her daughter, has no where to go, has a reported history of inability to manage finances and recently demonstrated disorganized behavior by walking in the middle of traffic. She lacks insight into condition will not even explain to freelance writer or thus far staff why she does not belong in a psychiatric hospital. Given patient's current presentation and collateral report from her daughter, it is freelance writer's opinion that patient needs psychiatric admission for her own safety. Hospital course: no changes; continues to refuse to engage with staff, with treatment. Discussed case with team and patients daughter. Patient is now homeless and can not return to daughters house as child his scared and pt's behaviors too overwhelming (daughter implies she would by open to having mother come back if adherent with effective treatment); pt is disorganized with a psychotic illness which impairs her ability to care for herself in the community; she has no insight and judgment is impaired. Team agrees that it's necessary to petition court for civil commitment for patients safety. 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 Given that the onset of a psychotic illness is uncommon this late in life, pt would benefit from a medical workup to assess if there are any medical issues contributing to her symptoms; currently she refuses. Plan Patient on Section 12b Will file for involuntary commitment for patient's safety and well-being; she has no place to live and is not organized enough to find, secure and maintain housing on her own Patient has been refusing treatment, conversation, vitals Will not schedule medications since pt remains highly agitated about admission and refuses all treatment; at this point, freelance writer feels that scheduling medications she clearly does not want will only exacerbate patient's irritation pt refuses head CT Greater than 50% of the session was spent on counseling and/or coordination of care Reason for contiued inpatient stay Substantial Risk for: inability to function
[2021-01-14 18:00] VITALS: RESP 16
--- NOTE | 2021-01-15 16:13 | HO.PSYCHPN ---
Subjective Subjective Date of Service: 01/15/21 Reason For Visit: Assess for safety psychosis Interim History: pt found peeling an orange over the trash can, near the entrance to her room. she does not reject MD's standing in her doorway and engaging her in conversation, at least initially. MD introduces himself. she expresses frustration and anger at being in the hospital and states she is going to be sent to [facility]. she is derisive toward MD r.e. any possibility of treatment or help hear and moves toward MD and reaches for the door as if to begin shutting it. MD retreats from the entrance to her room, and pt does indeed close the door in MD's face as he does, bidding her goodbye. Mental Status Exam Mental Status Exam Narrative: adequately groomed in street clothes, no PMA/PMR, variably cooperative with interview, speech normal in amount, rate, loudness, latenchy, and prosody. thoughts generally linear and logical, if based on false premises (ie, delusions). affect constricted, consistent with context, hyper-intense, mildly labile. mood not assessed. no AVH/SI/HI expressed. Diagnostics Vital Signs (24Hr): Vital Signs - 24 hr 01/14/21 18:00 Respiratory Rate 16 Body Mass Index 26.6 Medications Medications Current Medications Generic Name Dose Route Start Last Admin Trade Name Freq PRN Reason Stop Dose Admin Acetaminophen 650 mg 01/09/21 15:13 Acetaminophen 325 Mg Tablet PO Q6H PRN Headache/Pain Mild Scale (1-3) Al Hydroxide/Mg Hydroxide 30 ml 01/09/21 15:13 Magnesium Hydrox/Alum Hydrox 30 Ml Oral.Susp PO Q6H PRN Heartburn/Nausea Diphenhydramine HCl 50 mg 01/09/21 15:13 Diphenhydramine Hcl 25 Mg Tablet PO Q4H PRN agitation Haloperidol 5 mg 01/09/21 15:13 Haloperidol 5 Mg Tablet PO Q4H PRN agitation Hydroxyzine HCl 25 mg 01/09/21 15:13 Hydroxyzine Hcl 25 Mg Tablet PO TID PRN Anxiety Magnesium Hydroxide 30 ml 01/09/21 15:13 Milk Of Magnesia 30 Ml Oral.Susp PO DAILY PRN Constipation Nicotine Polacrilex 2 mg 01/10/21 13:33 Nicotine Polacrilex 2 Mg Gum BUCCAL Q2H PRN Nicotine Cravings Pharmacy Consult 1 each 01/08/21 08:04 Consult Rx Perform Med Rec MISCELLANE ONCE PRN Consult order Allergies Allergies Allergy/AdvReac Type Severity Reaction Status Date / Time No Known Allergies Allergy Verified 01/05/21 22:44 Assessment & Plan Assessment & Plan (1) Schizophrenia: Qualifiers: Schizophrenia type: paranoid schizophrenia Qualified Code(s): F20.0 - Paranoid schizophrenia Status: Acute Code(s): F20.9 - Schizophrenia, unspecified Assessment and Plan: IMPRESSION: Patient is a 55-year-old female with history of psychotic illness, diagnosed with schizophrenia later in life at around 52 years old, who presents with increasing disorganized behavior, paranoid thinking and psychotic symptoms. Patient is selectively mute and mostly refused to talk to advertising writer. Patient is currently refusing treatment and is on a Section 12. Patient is not able to return to live with her daughter, has no where to go, has a reported history of inability to manage finances and recently demonstrated disorganized behavior by walking in the middle of traffic. She lacks insight into condition will not even explain to advertising writer or thus far staff why she does not belong in a psychiatric hospital. Given patient's current presentation and collateral report from her daughter, it is advertising writer's opinion that patient needs psychiatric admission for her own safety. Hospital course: no changes; continues to refuse to engage with staff, with treatment. Discussed case with team and patients daughter. Patient is now homeless and can not return to daughters house as child his scared and pt's behaviors too overwhelming (daughter implies she would by open to having mother come back if adherent with effective treatment); pt is disorganized with a psychotic illness which impairs her ability to care for herself in the community; she has no insight and judgment is impaired. Team agrees that it's necessary to petition court for civil commitment for patients safety. 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 Given that the onset of a psychotic illness is uncommon this late in life, pt would benefit from a medical workup to assess if there are any medical issues contributing to her symptoms; currently she refuses. Plan Patient on Section 12b Will file for involuntary commitment for patient's safety and well-being; she has no place to live and is not organized enough to find, secure and maintain housing on her own Patient has been refusing treatment, conversation, vitals Will not schedule medications since pt remains highly agitated about admission and refuses all treatment; at this point, advertising writer feels that scheduling medications she clearly does not want will only exacerbate patient's irritation pt refuses head CT continue current Tx Greater than 50% of the session was spent on counseling and/or coordination of care Reason for contiued inpatient stay Substantial Risk for: inability to function
[2021-01-15 17:35] VITALS: RESP 18
[2021-01-16 06:00] VITALS: BP 110/57; PULSE 83; RESP 18; TEMP 35.9; O2SAT 94
--- NOTE | 2021-01-16 15:37 | HO.PSYCHPN ---
Subjective Subjective Date of Service: 01/16/21 Reason For Visit: Assess for safety psychosis Interim History: Patient nodded to customs entry writer as customs entry writer knocked in open door to speak to patient. Patient spoke to customs entry writer in a more calm, less irritable way today. However, she said she has nothing to discuss as this customs entry writer is not her doctor; her doctor is in [place]. Patient says she has nothing wrong with her except for eyesight problems and has nothing to say. Interview was concluded Mental Status Exam Mental Status Exam Narrative: Pt is alert and oriented to self, but not situation; behavior is guarded and uncooperative. Patient sitting on floor. mood is described as suspicious and affect congruent; eye contact either appropriate; Speech is normal rate, volume and prosody and not pressured; no psychomotor agitation/retardation present; thought process linear and goal oriented. Thought content is on that this admission is a fraud, wrongness of hospitalization; Positive for paranoid delusions per collateral; no known history of SI or HI. Reported self dialogue and auditory hallucinations. Patients insight and judgment appear impaired. Diagnostics Vital Signs (24Hr): Vital Signs - 24 hr 01/15/21 17:35 01/16/21 06:00 Temperature 96.7 F L Pulse Rate 83 Respiratory Rate 18 18 Blood Pressure 110/57 L Pulse Oximetry 94 Body Mass Index 26.6 Medications Medications Current Medications Generic Name Dose Route Start Last Admin Trade Name Freq PRN Reason Stop Dose Admin Acetaminophen 650 mg 01/09/21 15:13 Acetaminophen 325 Mg Tablet PO Q6H PRN Headache/Pain Mild Scale (1-3) Al Hydroxide/Mg Hydroxide 30 ml 01/09/21 15:13 Magnesium Hydrox/Alum Hydrox 30 Ml Oral.Susp PO Q6H PRN Heartburn/Nausea Diphenhydramine HCl 50 mg 01/09/21 15:13 Diphenhydramine Hcl 25 Mg Tablet PO Q4H PRN agitation Haloperidol 5 mg 01/09/21 15:13 Haloperidol 5 Mg Tablet PO Q4H PRN agitation Hydroxyzine HCl 25 mg 01/09/21 15:13 Hydroxyzine Hcl 25 Mg Tablet PO TID PRN Anxiety Magnesium Hydroxide 30 ml 01/09/21 15:13 Milk Of Magnesia 30 Ml Oral.Susp PO DAILY PRN Constipation Nicotine Polacrilex 2 mg 01/10/21 13:33 Nicotine Polacrilex 2 Mg Gum BUCCAL Q2H PRN Nicotine Cravings Pharmacy Consult 1 each 01/08/21 08:04 Consult Rx Perform Med Rec MISCELLANE ONCE PRN Consult order Allergies Allergies Allergy/AdvReac Type Severity Reaction Status Date / Time No Known Allergies Allergy Verified 01/05/21 22:44 Assessment & Plan Assessment & Plan (1) Schizophrenia: Qualifiers: Schizophrenia type: paranoid schizophrenia Qualified Code(s): F20.0 - Paranoid schizophrenia Status: Acute Code(s): F20.9 - Schizophrenia, unspecified Assessment and Plan: IMPRESSION: Patient is a 55-year-old female with history of psychotic illness, diagnosed with schizophrenia later in life at around 52 years old, who presents with increasing disorganized behavior, paranoid thinking and psychotic symptoms. Patient is selectively mute and mostly refused to talk to customs entry writer. Patient is currently refusing treatment and is on a Section 12. Patient is not able to return to live with her daughter, has no where to go, has a reported history of inability to manage finances and recently demonstrated disorganized behavior by walking in the middle of traffic. She lacks insight into condition will not even explain to customs entry writer or thus far staff why she does not belong in a psychiatric hospital. Given patient's current presentation and collateral report from her daughter, it is customs entry writer's opinion that patient needs psychiatric admission for her own safety. Hospital course: no changes; continues to refuse to engage with staff, with treatment. Discussed case with team and patients daughter. Patient is now homeless and can not return to daughters house as child his scared and pt's behaviors too overwhelming (daughter implies she would by open to having mother come back if adherent with effective treatment); pt is disorganized with a psychotic illness which impairs her ability to care for herself in the community; she has no insight and judgment is impaired. Team agrees that it's necessary to petition court for civil commitment for patients safety. 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 Given that the onset of a psychotic illness is uncommon this late in life, pt would benefit from a medical workup to assess if there are any medical issues contributing to her symptoms; currently she refuses. Plan Patient on Section 12b Several commitment hearing scheduled for 01/21/2021 filed for involuntary commitment for patient's safety and well-being; she has no place to live and is not organized enough to find, secure and maintain housing on her own Patient has been refusing treatment, conversation, vitals Will not schedule medications since pt remains highly agitated about admission and refuses all treatment; at this point, customs entry writer feels that scheduling medications she clearly does not want will only exacerbate patient's irritation pt refuses head CT continue current Tx Greater than 50% of the session was spent on counseling and/or coordination of care Reason for contiued inpatient stay Substantial Risk for: med/psych decompensation
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
[2021-01-17 18:00] VITALS: RESP 14
[2021-01-18 06:00] VITALS: RESP 18
--- NOTE | 2021-01-18 14:52 | HO.PSYCHPN ---
Subjective Subjective Date of Service: 01/18/21 Reason For Visit: Assess for safety psychosis Interim History: Met with patient and transition social worker, Patient is in good mood, calm and appropriate. Discussed meeting with daughter and patient says that her financial situation is more complex and advises account underwriter not to simply take her daughter's word for its current status. Patient agrees with plan to remain until Thursday and that if the weekend goes well and she remains without unsafe behaviors and in good behavioral control, team will not pursue civil commitment. During this time, patient agrees to work on finding housing for herself. She agrees with her daughter's plan to eventually live here in a duplex with her on 1 side and her daughter and grandson on the other. Until then she is fine living in an Airbnb. Daughter is in agreement with this. Of note patient was later seen in the milieu, playing bingo with peers, laughing and enjoying herself appropriately. Patient also acknowledged that some of her behaviors may be disconcerting to others and she agrees that she will be mindful of this especially in light of her 12-year-old grandson who was frightened by her talking out loud to herself Wet Process Operator met with daughter yesterday who says that the money is running out and that all that is left is the house which she plans to sell and use the proceeds to care for her mother. Her mother disagreed with the financial status of the trust and seems to think there is more money than the daughter implies. Mental Status Exam Mental Status Exam Narrative: Pt is alert and oriented to self and situation; behavior is overall cooperative (with moments of suspiciousness). Patient dressed in casual cloths, well groomed. Mood is good and affect often pleasant and not incongruent; eye contact appropriate; Speech is normal rate, volume and prosody and not pressured; no psychomotor agitation/retardation present; thought process linear, logical and goal oriented. Thought content is on wrongness of hospitalization; Positive for paranoid ideations; Denies any AVH; denies any SI/HI; No witnessed self-dialogue;. Patients insight and judgment appear impaired but improved. Diagnostics Vital Signs (24Hr): Vital Signs - 24 hr 01/17/21 18:00 01/18/21 06:00 Respiratory Rate 14 18 Body Mass Index 26.6 Medications Medications Current Medications Generic Name Dose Route Start Last Admin Trade Name Freq PRN Reason Stop Dose Admin Acetaminophen 650 mg 01/09/21 15:13 Acetaminophen 325 Mg Tablet PO Q6H PRN Headache/Pain Mild Scale (1-3) Al Hydroxide/Mg Hydroxide 30 ml 01/09/21 15:13 Magnesium Hydrox/Alum Hydrox 30 Ml Oral.Susp PO Q6H PRN Heartburn/Nausea Diphenhydramine HCl 50 mg 01/09/21 15:13 Diphenhydramine Hcl 25 Mg Tablet PO Q4H PRN agitation Haloperidol 5 mg 01/09/21 15:13 Haloperidol 5 Mg Tablet PO Q4H PRN agitation Hydroxyzine HCl 25 mg 01/09/21 15:13 Hydroxyzine Hcl 25 Mg Tablet PO TID PRN Anxiety Magnesium Hydroxide 30 ml 01/09/21 15:13 Milk Of Magnesia 30 Ml Oral.Susp PO DAILY PRN Constipation Nicotine Polacrilex 2 mg 01/10/21 13:33 Nicotine Polacrilex 2 Mg Gum BUCCAL Q2H PRN Nicotine Cravings Pharmacy Consult 1 each 01/08/21 08:04 Consult Rx Perform Med Rec MISCELLANE ONCE PRN Consult order Allergies Allergies Allergy/AdvReac Type Severity Reaction Status Date / Time No Known Allergies Allergy Verified 01/05/21 22:44 Assessment & Plan Assessment & Plan (1) Schizophrenia: Qualifiers: Schizophrenia type: paranoid schizophrenia Qualified Code(s): F20.0 - Paranoid schizophrenia Status: Acute Code(s): F20.9 - Schizophrenia, unspecified Assessment and Plan: IMPRESSION: Patient is a 55-year-old female with history of psychotic illness, diagnosed with schizophrenia later in life at around 52 years old, who presents with increasing disorganized behavior, paranoid thinking and psychotic symptoms. Patient is selectively mute and mostly refused to talk to account underwriter. Patient is currently refusing treatment and is on a Section 12. Patient is not able to return to live with her daughter, has no where to go, has a reported history of inability to manage finances and recently demonstrated disorganized behavior by walking in the middle of traffic. She lacks insight into condition will not even explain to account underwriter or thus far staff why she does not belong in a psychiatric hospital. Given patient's current presentation and collateral report from her daughter, it is account underwriter's opinion that patient needs psychiatric admission for her own safety. Hospital course: no changes; continues to refuse to engage with staff, with treatment. Discussed case with team and patients daughter. Patient is now homeless and can not return to daughters house as child his scared and pt's behaviors too overwhelming (daughter implies she would by open to having mother come back if adherent with effective treatment); pt is disorganized with a psychotic illness which impairs her ability to care for herself in the community; she has no insight and judgment is impaired. Team agrees that it's necessary to petition court for civil commitment for patients safety. 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 Given that the onset of a psychotic illness is uncommon this late in life, pt would benefit from a medical workup to assess if there are any medical issues contributing to her symptoms; currently she refuses. on 01/17/21 Until today account underwriter in team mostly were working off collateral and patients angry, suspicious presentation and outright refusal to engage in any level. Today patient was willing to talk. She did express some paranoid ideation and struggles to accept that some of her behaviors could be unsettling to others (talking out loud to herself), however patient was organized in speech and behavior and able to describe the past weeks and years in a logical and reasonable way, casting doubt that she is unable to care for herself. Her daughter does not dispute that patient has lived on her own for the past 4 years, without medications. Also relevant is that patient can logically explain how she will handle things if her daughter does not allow her to return home; patient reports she has adequate money remaining from her inheritance and if not allowed back at her daughter's, will pack up her bags, buy plane ticket and fly home. It is account underwriter's opinion that patient probably does have a delusional disorder and it remains quite possible she has auditory hallucinations; however, whether she is an imminent risk to herself or unable to take care of herself in the community is another matter. The most unsafe thing patient's daughter reported was that patient was walking in the traffic road at night, without plan, money or glasses on a way to the airport. Patient explains this very differently saying she was startled and upset when son-in-law brought over a transition social worker to assess her and needed to ?cool off so went walking down the side of the road. Daughter has been concerned that patient is not organized enough to use money to get herself housing and food. While this remains possible, the last 4 years is evidence to the contrary. Currently patient is able to logically explain how she would meet her daily needs. Wet Process Operator and transition social worker discussed plan and account underwriter will contact daughter to further discuss. Team will then re-evaluate how to proceed with civil commitment -daughter reports there is little money left in the trust and that she will have to sell the house to replenish the finances to care for her mother; mother, patient disputes this. However both agree that patient can live in an [employer] locally until the [employer] house is sold and a new living situation can be purchased. -patient will remain until 01/21 and if she remains in good behavioral control, safe and appropriate team has agreed to not pursue civil commitment; account underwriter reviewed this with hospital civil rights attorney who agrees with this plan Plan Patient on Section 12b civil commitment hearing scheduled for 01/21/2021 Although filed for involuntary commitment for patient's safety and well-being, team will reconsider giving that patient is willing to engage in discussion pt refuses head CT continue current Tx Greater than 50% of the session was spent on counseling and/or coordination of care Reason for contiued inpatient stay Substantial Risk for: med/psych decompensation
[2021-01-18 17:56] VITALS: RESP 14
--- NOTE | 2021-01-19 10:05 | HO.PSYCHPN ---
Subjective Subjective Date of Service: 01/19/21 Reason For Visit: Assess for safety psychosis Subjective Notes: Section 12B Healthcare Proxy: No Guardianship: No Medical Problems Affecting Mental Status: No Interim History: Pt focused on herself from others on unit- spending time away from roommate in grp rm b, reading magazine and watching tv- no concerns today- not on medications plans to go home thursday Review of Systems Review of Systems no physical complaints Mental Status Exam Mental Status Exam Narrative: well dressed, groomed, good eye contact Patient Appearance: Well Grooomed Patient Orientation: Person, Place, Time and Situation Level of Consciousness: Awake Patient Behavior: Appropriate Behavior Comments: other than acting like she doesn't need to be on unit, that it is all a mistake Mood Description: Relaxed Affect Description: Calm Ability to Follow Directions: Fair Speech Pattern: Clear Hallucinations: None Delusions: Not Present Thought Process: Intact and Goal Oriented Thought Content: positive for Intact, positive for Poverty of Content and positive for Evasive Judgement: Fair Judgement and Insight: ? poor insight Diagnostics Vital Signs (24Hr): Vital Signs - 24 hr 01/18/21 17:56 Respiratory Rate 14 Body Mass Index 26.6 Medications Medications Current Medications Generic Name Dose Route Start Last Admin Trade Name Freq PRN Reason Stop Dose Admin Acetaminophen 650 mg 01/09/21 15:13 Acetaminophen 325 Mg Tablet PO Q6H PRN Headache/Pain Mild Scale (1-3) Al Hydroxide/Mg Hydroxide 30 ml 01/09/21 15:13 Magnesium Hydrox/Alum Hydrox 30 Ml Oral.Susp PO Q6H PRN Heartburn/Nausea Diphenhydramine HCl 50 mg 01/09/21 15:13 Diphenhydramine Hcl 25 Mg Tablet PO Q4H PRN agitation Haloperidol 5 mg 01/09/21 15:13 Haloperidol 5 Mg Tablet PO Q4H PRN agitation Hydroxyzine HCl 25 mg 01/09/21 15:13 Hydroxyzine Hcl 25 Mg Tablet PO TID PRN Anxiety Magnesium Hydroxide 30 ml 01/09/21 15:13 Milk Of Magnesia 30 Ml Oral.Susp PO DAILY PRN Constipation Nicotine Polacrilex 2 mg 01/10/21 13:33 Nicotine Polacrilex 2 Mg Gum BUCCAL Q2H PRN Nicotine Cravings Pharmacy Consult 1 each 01/08/21 08:04 Consult Rx Perform Med Rec MISCELLANE ONCE PRN Consult order Allergies Allergies Allergy/AdvReac Type Severity Reaction Status Date / Time No Known Allergies Allergy Verified 01/05/21 22:44 Assessment & Plan Assessment & Plan (1) Schizophrenia: Qualifiers: Schizophrenia type: paranoid schizophrenia Qualified Code(s): F20.0 - Paranoid schizophrenia Status: Acute Code(s): F20.9 - Schizophrenia, unspecified Assessment and Plan: Pt appears kempt , engaged on superficial level with staff, patients Greater than 50% of the session was spent on counseling and/or coordination of care Reason for contiued inpatient stay Substantial Risk for: inability to function
--- NOTE | 2021-01-20 12:25 | HO.PSYCHPN ---
Subjective Subjective Date of Service: 01/20/21 Reason For Visit: Assess for safety psychosis Subjective Notes: Section 12B Healthcare Proxy: No Guardianship: No Medical Problems Affecting Mental Status: No Interim History: Pt reports she is excited to get dced reported she moved hear from [place]- to help her daugther who was in a bad situation with divorce and that things fell apart around conflicts in dynamics with daughter's and herself- may feel that daugther's reported her to his therapist? Medication Compliance: No Side effects from medications: No Attending Groups: No Mental Status Exam Mental Status Exam Patient Appearance: Well Grooomed and Appropriate Patient Orientation: Person, Place, Time and Situation Level of Consciousness: Awake Patient Behavior: Talkative and Hyperactive Mood Description: Expansive Affect Description: Expansive Patient Cognition Impaired: No Ability to Follow Directions: Fair Speech Pattern: Clear and Excessive Hallucinations: None Thought Process: Intact and Distracted Thought Content: positive for Intact Judgement: Fair Diagnostics Vital Signs (24Hr): Body Mass Index 26.6 Medications Medications Current Medications Generic Name Dose Route Start Last Admin Trade Name Freq PRN Reason Stop Dose Admin Acetaminophen 650 mg 01/09/21 15:13 Acetaminophen 325 Mg Tablet PO Q6H PRN Headache/Pain Mild Scale (1-3) Al Hydroxide/Mg Hydroxide 30 ml 01/09/21 15:13 Magnesium Hydrox/Alum Hydrox 30 Ml Oral.Susp PO Q6H PRN Heartburn/Nausea Diphenhydramine HCl 50 mg 01/09/21 15:13 Diphenhydramine Hcl 25 Mg Tablet PO Q4H PRN agitation Haloperidol 5 mg 01/09/21 15:13 Haloperidol 5 Mg Tablet PO Q4H PRN agitation Hydroxyzine HCl 25 mg 01/09/21 15:13 Hydroxyzine Hcl 25 Mg Tablet PO TID PRN Anxiety Magnesium Hydroxide 30 ml 01/09/21 15:13 Milk Of Magnesia 30 Ml Oral.Susp PO DAILY PRN Constipation Nicotine Polacrilex 2 mg 01/10/21 13:33 Nicotine Polacrilex 2 Mg Gum BUCCAL Q2H PRN Nicotine Cravings Pharmacy Consult 1 each 01/08/21 08:04 Consult Rx Perform Med Rec MISCELLANE ONCE PRN Consult order Allergies Allergies Allergy/AdvReac Type Severity Reaction Status Date / Time No Known Allergies Allergy Verified 01/05/21 22:44 Assessment & Plan Assessment & Plan (1) Psychosis: Status: Acute Code(s): F29 - Unspecified psychosis not due to a substance or known physiological condition Assessment and Plan: Pt kempt , slightly disorganized TP, maybe rapid speech otherwise- ? situational might consider cyclothymia or other dx Greater than 50% of the session was spent on counseling and/or coordination of care Reason for contiued inpatient stay Substantial Risk for: rapid decompensation
[2021-01-21] VITALS: RESP 16
--- NOTE | 2021-01-21 11:18 | P.DS_ITS ---
DS: Providers Provider Date of Service: 01/21/21 Date of admission: 01/09/21 15:00 Date of discharge: 01/21/21 Primary care physician: Unknown Physician Attending physician on admission: Chas Maciel Attending physician on discharge: Chas Maciel DS: Diagnosis Discharge Diagnosis (1) Psychosis: Status: Acute Problem details: Psychotic disorder, unspecified. Pt has some paranoid delusions; intermittently speaks in a gibberish language but denies any AVH (hx of which is reported by daughter). DS: Medications Discharge Medications Home Medications: Home Medications Medication Instructions Recorded Confirmed No Known Home Meds 01/06/21 01/06/21 Discharge Plan Discharge Patient Disposition: Home, Self-Care Discharge Diagnosis: Psychotic disorder, unpsecified Referrals: [facility] [Other] - 1 Week (If you are interested in obtaining an outpatient therapist and psychiatrist, please call the above number to schedule an Intake) [facility] [Other] - 1 Week (Men, Women, and separate dormitory; self-refer- call between 9am-2pm; there may be a waitlist) [facility] [Other] - 1 Week (Open 23/02. No one is turned away) Physician,Unknown [Primary Care Provider] - 1 Week Discharge Medications: No Action No Known Home Meds RF: 0 Discharge Orders: Discharge Order (Routine); Ordered 01/21/21 Ordered By: Chas Maciel Diet: regular diet Activity on Discharge: As tolerated Stand Alone Forms: Patient Portal Discharge page, Community Support Care Plan Goals: Maintain mood and safe behaviors Practice coping skills Health Concerns: Talking out loud to self Annual exam by PCP Plan of Treatment: Follow up with outpatient providers regarding above concerns Assessment: Risk assessment at time of discharge: Patient has been observed closely by nursing and unit staff throughout admission; patient has not engaged in any behaviors that suggest dangerousness to self or others and has demonstrated appropriate behaviors and impulse control. Patient was interviewed prior to discharge and found to be fully oriented and without any SI or HI. Patient is not in imminent risk of harm to self or others. Discharge Date/Time: 01/21/21 13:30 Mental Status Exam Mental Status Exam Narrative: Patient Appearance: Well Groomed and Appropriate Patient Orientation: Person, Place, Time and Situation Level of Consciousness: Awake Patient Behavior: calm, appropriate, friendly Mood Description: good Affect Description: congruent Patient Cognition Impaired: No Ability to Follow Directions: good Speech Pattern: Clear, normal rate, volume and prosody; not pressured Hallucinations: denies Thought Process: logical, linear, goal oriented Thought Content: on discharge; on helping her daughter and her daughter needing help Insight: impaired Judgment: Fair DS: Summary Hospital Course Hospital Course: Patient is a 55-year-old female with history of psychotic illness, diagnosed with schizophrenia later in life at around 52 years old, who presents with increasing disorganized behavior, paranoid thinking and psychotic symptoms. Patient is selectively mute and mostly refused to talk to senior medical writer. Patient is currently refusing treatment and is on a Section 12. Patient is not able to return to live with her daughter, has no where to go, has a reported history of inability to manage finances and recently demonstrated disorganized behavior by walking in the middle of traffic. She lacks insight into condition will not even explain to senior medical writer or thus far staff why she does not belong in a psychiatric hospital. Given patient's current presentation and collateral report from her daughter, it is senior medical writer's opinion that patient needs psychiatric admission for her own safety. Hospital course from day of admission 01/09 to 01/16: no changes; continues to refuse to engage with staff, with treatment. Discussed case with team and patients daughter. Patient is now homeless and can not return to daughters house as child his scared and pt's behaviors too overwhelming (daughter implies she would by open to having mother come back if adherent with effective treatment); pt is disorganized with a psychotic illness which impairs her ability to care for herself in the community; she has no insight and judgment is impaired. Team agrees that it's necessary to petition court for civil commitment for patients safety. 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 Given that the onset of a psychotic illness is uncommon this late in life, pt would benefit from a medical workup to assess if there are any medical issues contributing to her symptoms; currently she refuses. Hospital course STARTING ON 01/17/21 Until today senior medical writer in team mostly were working off collateral and patients angry, suspicious presentation and outright refusal to engage in any level. Today patient was willing to talk. She did express some paranoid ideation and struggles to accept that some of her behaviors could be unsettling to others (talking out loud to herself), however patient was organized in speech and behavior and able to describe the past weeks and years in a logical and reasonable way, casting doubt that she is unable to care for herself. Her daughter does not dispute that patient has lived on her own for the past 4 years, without medications. Also relevant is that patient can logically explain how she will handle things if her daughter does not allow her to return home; patient reports she has adequate money remaining from her inheritance and if not allowed back at her daughter's, will pack up her bags, buy plane ticket and fly home. It is senior medical writer's opinion that patient probably does have a psychotic disorder and it remains quite possible she has auditory hallucinations; however, whether she is an imminent risk to herself or unable to take care of herself in the community is another matter. The most unsafe thing patient's daughter reported was that patient was walking in the traffic road at night, without plan, money or glasses on a way to the airport. Patient explains this very differently saying she was startled and upset when son-in-law brought over a hospice social worker to assess her and needed to ?cool off so she went walking down the side of the road. Daughter has been concerned that patient is not organized enough to use money to get herself housing and food. While this remains possible, the last 4 years is evidence to the contrary. Currently patient is able to logically explain how she would meet her daily needs. Environmental Economist and hospice social worker discussed plan and senior medical writer will contact daughter to further discuss. Team will then re-evaluate how to proceed with civil commitment. The senior medical writer consulted with hospital ingot supervisor who agrees that there is insufficient data to testify patient is in imminent risk of harm to self or others or cannot take care of herself in the community. -Daughter visited and reports there is little money left in the trust and that she will have to sell the house to replenish the finances to care for her mother; patient however disputes this. However both agree that patient can live in an Airbnb locally until the [place] house is sold and a new living situation can be purchased. -patient will remain until 01/21 and if she remains in good behavioral control, safe and appropriate team has agreed to not pursue civil commitment; senior medical writer reviewed this with hospital ingot supervisor who agrees with this plan Patient remained in good behavioral control, without any unsafe behaviors, attentive to ADLs or not demonstrating any overt psychotic symptoms or any symptoms of keri; she continued to deny any SI or HI and though she did say she sometimes speaks in ?Slovak ? giving senior medical writer a brief sample which to senior medical writer sounded to be gibberish, she continued to deny any AVH; her thought process remained linear, logical and goal oriented. Patient report being in a good mood and thanks senior medical writer and hospice social worker for their help. It remains her plan to stay here and help daughter, who is going through a divorce, if daughter agrees which she does. Patient also agrees to be more mindful of talking out loud in front of her grandson. Patient's daughter agrees to pick her mom up and is finding accommodations for her until they can form a more long-lasting housing plan. Environmental Economist and team concluded that patient is not in imminent risk of harm to self or others and does not meet criteria for involuntary commitment. Patient is request for discharge honored. Time Spent with Patient Time attestation: Total time spent providing and/or coordinating discharge services:
== END 2021-01-21 13:30 | disposition home or self-care (01) | DRG 750 ==
LOC: HO.ED 01-09 14:50 → HO.PM5 01-09 15:02
PROVIDERS: Admitting Provider Psychiatry & Neurology Psychiatry; Emergency Provider Emergency Medicine; Visit Provider Psychiatry & Neurology Psychiatry
DX: F20.0 Paranoid schizophrenia (principal); F17.200 Nicotine dependence, unspecified, uncomplicated; F17.210 Nicotine dependence, cigarettes, uncomplicated; K21.9 Gastro-esophageal reflux disease without esophagitis; Z71.6 Tobacco abuse counseling; Z20.822 Contact with and (suspected) exposure to COVID-19
CPT/HCPCS: 36415; 87635; 99285

== ENCOUNTER 2021-02-16 13:49 | Inpatient (IN) | payer OTHER, SELFPAY ==
--- NOTE | 2021-02-16 14:00 | ED_ITS ---
HPI - Psych General Chief Complaint: Psychiatric Symptoms Stated Complaint: SEC12, ALT/SPEAKING GIBBERISH PER DTR,4PT BY [employer] Time Seen by Provider: 02/16/21 13:50 Source: EMS and old records reviewed Mode of arrival: EMS Limitations: other (aggressive and agitated, won't talk to me) History of Present Illness MD complaint: other (aggression, delusions, daughter called police) Onset (ago): unknown Duration: constant History of same: Yes Relieving factors: none Exacerbating factors: none Associated psychiatric symptoms: delusions Treatments prior to arrival: placed on mental health hold Related Data Home Medications Medication Instructions Recorded Confirmed No Known Home Meds 01/06/21 01/06/21 Allergies Allergy/AdvReac Type Severity Reaction Status Date / Time No Known Allergies Allergy Verified 01/05/21 22:44 Review of Systems Review of Systems: ROS unable to be obtained due to patient being uncooperative and agitated REPLACED BY [facility] Past Medical History Attestation statement: The following information was validated with the patient. Medical History ADHD Alcohol abuse Chronic uveitis of both eyes Cystoid macular edema Depression GERD (gastroesophageal reflux disease) MDD (major depressive disorder) Migraine Ovarian cyst Prediabetes Premenstrual dysphoric disorder Schizophrenia Surgical History History of salpingo-oophorectomy Social History Social History Alcohol intake: never Patient Tobacco Use Status: Current everyday Tobacco user e-Cigarette/Vaping Use: Currently Using Advance Directives: No Advance Directives Information Provided: Yes Physical Exam Vital Signs: Vital Signs: Body Mass Index 25.0 Appearance: Alert. agitated, hostile and posturing at staff Eyes: Pupils equal, round and reactive to light. ENT: Pharynx normal. Neck: Normal inspection. Neck supple. CVS: unable to examine Respiratory: No respiratory distress. Abdomen: no signs of trauma Skin: Skin warm and appears diaphoretic. Normal skin color. Extremities: No lower extremity edema. Neuro: Will not participate in exam, no obvious deficits, steady gait, moving all extremities equally. Psych: angry, hostile, posturing at staff, attempting to slam doors, not answering questions ?responding to internal stimuli Course Course Course Narrative: Physician observation started at 239pm. Patient placed in physician observation because the patient needed more time for medications to work and to see BHN and be evaluated for the need for psych admission. At the time observation was started the patient's vitals were stable, patient was sedated and she is severely agitated at this time requiring IM medications. signed out pending labs and BHN consult MDM - Psych MDM Narrative Medical decision making narrative: 56 yo female with dx of psychosis had a long stay on M5 at this time very agitated and agressive with staff, she is posturing and slamming the doors on the staff at this time I cannot de-escalate her behaviors and for her and staff safety she will receive chemical restraints given her degree of aggression on arrival - labs and BHN consult ordered Discharge Plan Discharge Clinical Impression: Psychosis Qualifiers: Psychosis type: other Qualified Code(s): F28 - Other psychotic disorder not due to a substance or known physiological condition Prescriptions: No Action No Known Home Meds RF: 0
[2021-02-16] MEDS: Haloperidol Lactate 5 MG/ML VIAL IM (14:08)
[2021-02-16] MEDS: LORazepam 2 MG/ML VIAL IM (14:09)
--- NOTE | 2021-02-16 14:09 | PC.NURSE ---
PT ARRIVES VIA EMS ACCOMPANIED BY EMS AND PD, SECTION 12 BY PD FOR AGGRESSIVE AND PARANOID BEHAVIOURS AT HOME. PT VERBALLY AGGRAVATED, SLAMMING DOORS & YELLING UPON ARRIVAL. MEDICATED ORDERED BY .
[2021-02-16 14:16] VITALS: BMI 25.0
[2021-02-16 16:51] VITALS: BP 122/67; RESP 16; O2SAT 98
--- NOTE | 2021-02-16 21:17 | PC.NURSE ---
Late entries. THis RN has been present in the POD since aproximately 3pm/ Pt has been sleeping soundly, snoring respirations with visible chest rise throughout this rn's time in the POD.
[2021-02-16 22:37] VITALS: PULSE 66; RESP 18; TEMP 36.5; O2SAT 98
--- NOTE | 2021-02-16 23:52 | MHC.CARE ---
[facility] unable to send a clinician to evaluate pt until the morning. CARE team has taken over and requested that [facility] notify the insurance company. This mortgage underwriter attempted to meet with pt, who would not engage in the assessment. Spoke at length with pt's daughter on the phone and reviewed medical record from recent visit and today's visit. Based on pt's behavioral presentation prior to assessment, plan is for inpt psychiatric admission. MSU will be attempted in the morning to fully assess pt's mental status. Sect 12a is signed and in pt's chart.
--- NOTE | 2021-02-17 05:50 | PC.NURSE ---
Patient is in bed since 1400 yesterday, Patient is S?P chemical restraint, refused LAB, refused to talk to care team, refused VS assessment, isolated in her room, mostly sleeping, poor appetite, no distress observed/reported, will continue to monitor
[2021-02-17 06:42] VITALS: RESP 16
--- NOTE | 2021-02-17 07:06 | PC.NURSE ---
patient appears to remain at rest at present appears in no distress
[2021-02-17 08:56] VITALS: RESP 18
--- NOTE | 2021-02-17 13:44 | PC.NURSE ---
patient asked for hand soap and ate 100 percent of lunch
--- NOTE | 2021-02-17 20:46 | MHC.CARE ---
Bedsearch Note: State wide search- 1 female bed available. Low acuity and voluntary for admission only.
[2021-02-18 05:46] VITALS: BP 108/66; PULSE 74; RESP 16; TEMP 36.6; O2SAT 97
--- NOTE | 2021-02-18 06:39 | PC.NURSE ---
Patient slept through the night, patient's behavior is more calm and appropriate, agreed to swab her for covid/pending result, urine pending, no distress observed/reported, disposition is section 12 inpatient bed search, will continue to monitor.
[2021-02-18 06:45] LABS: COVID-19 Test Negative (Negative); IDNOW Serial# 9DD0AD1C
--- NOTE | 2021-02-18 07:43 | PC.NURSE ---
pt sitting in chair in her room eating breakfast. No apparent distress noted. will continue to monitor
[2021-02-18 08:27] VITALS: RESP 15
--- NOTE | 2021-02-18 10:39 | PC.NURSE ---
PER CARE TEAM, PT WILL BE GOING TO M5 TODAY. TIME NOT YET DETERMINED. WILL CONTINUE TO MONITOR
--- NOTE | 2021-02-18 13:51 | PC.NURSE ---
RN to RN report given to Anuradha on M5
[2021-02-18 18:51] VITALS: RESP 15
--- NOTE | 2021-02-18 18:55 | PC.NURSE ---
Patient is alert and oriented x 4 verbalized understanding of being admitted to m5 room 509-1 escorted to the floor via security and m5 staff. At this time this rn is unable to access discharge worksheet
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
[2021-02-19 16:45] VITALS: RESP 16
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
[2021-02-21 18:00] VITALS: RESP 14
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
[2021-02-23 18:00] VITALS: RESP 14
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
[2021-03-01 16:15] VITALS: RESP 16
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
[2021-03-04] MEDS: OLANZapine 10 MG VIAL 5 MG IM (13:48)
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
[2021-03-05] MEDS: OLANZapine ODT 10 MG TAB.RAPDIS 5 MG TRANSLINGU (13:02)
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
[2021-03-06] MEDS: OLANZapine ODT 10 MG TAB.RAPDIS 5 MG TRANSLINGU (13:14)
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
[2021-03-07] MEDS: OLANZapine ODT 10 MG TAB.RAPDIS 5 MG TRANSLINGU (13:25)
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
[2021-03-08] MEDS: OLANZapine ODT 10 MG TAB.RAPDIS 5 MG TRANSLINGU (13:41)
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
[2021-03-09] MEDS: OLANZapine ODT 10 MG TAB.RAPDIS 5 MG TRANSLINGU (13:16)
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
[2021-03-10] MEDS: OLANZapine ODT 10 MG TAB.RAPDIS 5 MG TRANSLINGU (12:50)
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
[2021-03-11] MEDS: OLANZapine ODT 10 MG TAB.RAPDIS 5 MG TRANSLINGU (13:46)
--- NOTE | 2021-03-11 17:27 | PM.PSYDC ---
DS: Providers Provider Date of admission: 02/18/21 14:49 Primary care physician: Unknown Physician DS: Diagnosis Discharge Diagnosis (1) Schizophrenia: Status: Acute DS: Medications Discharge Medications Home Medications: Home Medications Medication Instructions Recorded Confirmed No Known Home Meds 01/06/21 01/06/21 DS: Summary Time Spent with Patient Time attestation: Total time spent providing and/or coordinating discharge services: Discharge Plan Discharge Referrals: Physician,Unknown [Primary Care Provider] - 1 Week Discharge Medications: No Action No Known Home Meds RF: 0
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
[2021-03-12] MEDS: OLANZapine ODT 10 MG TAB.RAPDIS 5 MG TRANSLINGU (14:44)
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
[2021-03-13] MEDS: OLANZapine ODT 10 MG TAB.RAPDIS 5 MG TRANSLINGU (14:04)
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
[2021-03-14] MEDS: OLANZapine ODT 10 MG TAB.RAPDIS 5 MG TRANSLINGU (13:22)
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
[2021-03-15] MEDS: OLANZapine ODT 10 MG TAB.RAPDIS 5 MG TRANSLINGU (13:07)
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
[2021-03-16] MEDS: OLANZapine ODT 10 MG TAB.RAPDIS 5 MG TRANSLINGU (13:58)
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
[2021-03-17] MEDS: OLANZapine ODT 10 MG TAB.RAPDIS 5 MG TRANSLINGU (13:51)
[2021-03-18] MEDS: OLANZapine ODT 10 MG TAB.RAPDIS 5 MG TRANSLINGU (14:25)
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
[2021-03-18 18:00] VITALS: RESP 19
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
[2021-03-19] MEDS: OLANZapine ODT 10 MG TAB.RAPDIS 5 MG TRANSLINGU (14:14)
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
[2021-03-20] MEDS: OLANZapine ODT 10 MG TAB.RAPDIS 5 MG TRANSLINGU (13:42)
--- NOTE | 2021-03-21 09:00 | ECG_ITS ---
Test Reason : ATYPICAL USE MEDS Blood Pressure : / mmHG Vent. Rate : 084 BPM Atrial Rate : 084 BPM P-R Int : 150 ms QRS Dur : 098 ms QT Int : 386 ms P-R-T Axes : 064 053 052 degrees QTc Int : 456 ms Normal sinus rhythm Septal infarct , age undetermined Abnormal ECG No previous ECGs available Referred By: Betty Carter Electronically Signed By:NOREEN ORTIZ
[2021-03-21 10:23] LABS: MANUAL DIFF FLAG NO
[2021-03-21 10:29] LABS: Basophils Percent Auto 0.5 % (0-2); Eosinophils Absolute Auto 0.4 X10*3/uL (0.0-0.4); Eosinophils Percent Auto 4.6 % (0-4); Hematocrit 46.7 % (37-47); Hemoglobin 14.9 g/dl (12.0-16.0); Imm Gran Abs Auto 0.02 X10*3/uL (0.00-0.03); Imm Gran Pct Auto 0.2 % (0.0-0.4); Lymphocytes Absolute Auto 3.5 X10*3/uL (1.2-4.9); Lymphocytes Percent Auto 41.1 % (20-40); Mean Corpuscular HGB Conc 31.9 g/dl (31.0-35.0); Mean Corpuscular Hemoglobin 27.8 pg (27.0-33.0); Mean Corpuscular Volume 87.1 fL (80-98); Mean Platelet Volume 9.5 fL (9.4-12.3); Monocytes Absolute Auto 0.5 X10*3/uL (0.1-1.2); Monocytes Percent Auto 5.4 % (2-11); Neutrophils Absolute Auto 4.1 X10*3/uL (2.0-8.3); Neutrophils Percent Auto 48.2 % (45-73); Platelet Count 269 X10*3/uL (160-400); Red Blood Count 5.36 X10*6/uL (4.20-5.50); Red Cell Distribution Width 13.7 % (11.0-16.0); White Blood Count 8.6 X10*3/uL (4.8-10.8)
[2021-03-21 11:07] LABS: Alanine Aminotransferase 26 U/L (0-31); Albumin Level 4.1 g/dL (3.5-5.0); Alkaline Phosphatase 82 U/L (39-117); Anion Gap 14 (12-20); Aspartate Amino Transferase 17 U/L (5-31); Bilirubin Total 0.3 mg/dL (0.0-1.0); Blood Urea Nitrogen 12 mg/dL (9-16); Calcium 9.2 mg/dL (8.4-10.2); Carbon Dioxide 28 mmol/L (22-29); Chloride 104 mmol/L (96-108); Cholesterol 223 mg/dL; Estimated Glomerular Filt Rate > 60; Glucose Random 131 mg/dL (60-115); HDL Cholesterol 50 mg/dL; LDL Cholesterol Calculated 128 mg/dl; Potassium 4.5 mmol/L (3.3-5.1); Sodium 141 mmol/L (135-145); Total Protein 7.2 g/dL (6.5-8.0); Triglycerides 226 mg/dL
[2021-03-21 11:10] LABS: Estimated Average Glucose 120 mg/dL; Hemoglobin A1c % 5.8 %
[2021-03-21 11:27] LABS: Thyroid Stimulating Hormone 2.61 uIU/mL (0.32-4.0); Vitamin D 25-OH Total 25.6 ng/mL (>30)
[2021-03-21 11:45] LABS: Folate 17.8 ng/mL (> or = 4.0); Vitamin B12 367 pg/mL (200-900)
[2021-03-21] MEDS: OLANZapine ODT 10 MG TAB.RAPDIS 5 MG TRANSLINGU (13:35)
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
[2021-03-22] MEDS: OLANZapine ODT 10 MG TAB.RAPDIS 5 MG TRANSLINGU (13:48)
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
[2021-03-23 06:00] VITALS: BP 132/60; PULSE 97; RESP 16; TEMP 36.1; O2SAT 99
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
[2021-03-23] MEDS: OLANZapine ODT 10 MG TAB.RAPDIS 5 MG TRANSLINGU (12:49)
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
[2021-03-24] MEDS: OLANZapine ODT 10 MG TAB.RAPDIS 5 MG TRANSLINGU (13:50)
--- NOTE | 2021-03-25 | ECG_ITS ---
Test Reason : SEPTAL INFARCT/ERROR Blood Pressure : / mmHG Vent. Rate : 072 BPM Atrial Rate : 072 BPM P-R Int : 164 ms QRS Dur : 082 ms QT Int : 400 ms P-R-T Axes : 065 055 045 degrees QTc Int : 438 ms Normal sinus rhythm Septal infarct (cited on or before 21-MAR-2021) Abnormal ECG When compared with ECG of 21-MAR-2021 10:57, No significant change was found Referred By: Betty Carter Electronically Signed By:NOREEN ORTIZ
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
[2021-03-25] MEDS: OLANZapine ODT 10 MG TAB.RAPDIS 5 MG TRANSLINGU (13:27)
[2021-03-26] MEDS: OLANZapine ODT 10 MG TAB.RAPDIS 5 MG TRANSLINGU (14:19)
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
[2021-03-27] MEDS: OLANZapine ODT 10 MG TAB.RAPDIS 5 MG TRANSLINGU (13:14)
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
[2021-03-28] MEDS: OLANZapine ODT 10 MG TAB.RAPDIS 5 MG TRANSLINGU (12:39)
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
[2021-03-29] MEDS: OLANZapine ODT 10 MG TAB.RAPDIS 5 MG TRANSLINGU (13:14)
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
[2021-03-30] MEDS: OLANZapine ODT 10 MG TAB.RAPDIS 5 MG TRANSLINGU (14:14)
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
[2021-03-31] MEDS: OLANZapine ODT 10 MG TAB.RAPDIS 5 MG TRANSLINGU (13:10)
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
[2021-04-01] MEDS: OLANZapine ODT 10 MG TAB.RAPDIS 5 MG TRANSLINGU (12:27)
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
[2021-04-02] MEDS: OLANZapine ODT 10 MG TAB.RAPDIS 5 MG TRANSLINGU (12:25)
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
[2021-04-03] MEDS: OLANZapine ODT 10 MG TAB.RAPDIS 5 MG TRANSLINGU (12:29)
[2021-04-04] MEDS: OLANZapine ODT 10 MG TAB.RAPDIS 5 MG TRANSLINGU (12:45)
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
[2021-04-05] MEDS: OLANZapine ODT 10 MG TAB.RAPDIS 5 MG TRANSLINGU (13:16)
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
[2021-04-06] MEDS: OLANZapine ODT 10 MG TAB.RAPDIS 5 MG TRANSLINGU (14:12)
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
[2021-04-07] MEDS: OLANZapine ODT 10 MG TAB.RAPDIS 5 MG TRANSLINGU (12:25)
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
[2021-04-08] MEDS: OLANZapine ODT 10 MG TAB.RAPDIS 5 MG TRANSLINGU (13:44)
[2021-04-09] MEDS: OLANZapine ODT 10 MG TAB.RAPDIS 5 MG TRANSLINGU (12:13)
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
== END 2021-04-09 12:30 | disposition home or self-care (01) | DRG 750 ==
LOC: HO.ED 14:40 → HO.PM5 02-18 15:11
PROVIDERS: Student in an Organized Health Care Education/Training Program; Admitting Provider Psychiatry & Neurology Psychiatry; Emergency Provider Emergency Medicine; Visit Provider Clinical Nurse Specialist Psychiatric/Mental Health, Adult
DX: F20.9 Schizophrenia, unspecified (principal); F17.210 Nicotine dependence, cigarettes, uncomplicated; F90.9 Attention-deficit hyperactivity disorder, unspecified type; Z20.822 Contact with and (suspected) exposure to COVID-19; K21.9 Gastro-esophageal reflux disease without esophagitis; Z71.6 Tobacco abuse counseling; Z79.899 Other long term (current) drug therapy
CPT/HCPCS: 36415; 80053; 80061; 82306; 82607; 82746; 83036; 84443; 85025; 87635; 93005; 96372; 99284; 99285; J2060

== ENCOUNTER 2024-07-04 19:00 | Inpatient (IN) | payer OTHER, SELFPAY ==
[2024-07-04 19:25] VITALS: BP 150/82; PULSE 110; PULSE 66; RESP 20; TEMP 36.8; O2SAT 90; O2SAT 95; BMI 39.1
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
--- NOTE | 2024-07-04 20:19 | MHC.EDTECH ---
PT REFUSING ALL LAB WORK AT THIS TIME. RN AWARE.
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
[2024-07-04 21:25] VITALS: RESP 18; O2SAT 97
--- NOTE | 2024-07-04 21:26 | PC.NURSE ---
admission assessment 02 sat is in error, is 97%
[2024-07-04 21:32] VITALS: BP 137/80; PULSE 109; RESP 19; TEMP 36.8; O2SAT 97; BMI 39.2
--- NOTE | 2024-07-04 21:35 | MHC.EDTECH ---
pt refusing all lab work, EKG, and to provide a UA sample. RN AWARE. PROVIDER AWARE.
--- NOTE | 2024-07-04 22:34 | PC.NURSE ---
late entry d/t uncooperativeness patient was only mostly changed over, patient retains 2 bracelets and her own pants and sportsbra, was wanded by security
--- NOTE | 2024-07-05 00:23 | PC.NURSE ---
patient offered drinks and snacks asked about labs and offered medications, client declined
--- NOTE | 2024-07-05 02:18 | PC.NURSE ---
t/w provided two 6 oz cups water sandwich and 4 ounce apple juice
--- NOTE | 2024-07-05 02:21 | MHC.EDTECH ---
PT CONTINUES TO REFUSE ALL LABWORK, EKG, AND UA SAMPLE. RN AWARE. PROVIDER AWARE.
--- NOTE | 2024-07-05 03:41 | PC.NURSE ---
client was approached by staff in a respectful fashion as she returned from rest room and asked to complete climate change analyst (client still retains 2 pc jewelry and pants) client closed door backing in to her room silently and closed door, proceeded to lay down
[2024-07-05 06:00] VITALS: RESP 16
--- NOTE | 2024-07-05 07:04 | PC.NURSE ---
Assumed care of patient at 0645, patient resting on bed at this time, respirations even and unlabored. Per previous RN, patient uncooperative with staff, refused meter changes records clerk, refused labs and urine. Pt appears to be still wearing her sports bra and pants as she was unwilling to meter changes records clerk. Patient is currently pending medical clearance and CARE team evaluation
--- NOTE | 2024-07-05 08:15 | PC.NURSE ---
Patient refusing to give urine or blood work at this time
[2024-07-05] MEDS: OLANZapine 10 MG VIAL IM (10:52)
[2024-07-05 11:07] VITALS: RESP 18
--- NOTE | 2024-07-05 11:08 | PC.NURSE ---
Late entry: Per PIEDAD Lynch and PIEDAD Stinson, pt cannot be admitted without bloodwork or EKG per the request of Dr. Cordoba. Dr. Portillo came to assess patient and decision was made to medicate the patient to obtain blood work since pt was resistant. Dr. Portillo ordered 10mg Zyprexa IM. Pt does not have the ability to make her own decisions so it coordination with daughter was made. 1010: This RN called pts guardian Dianna Jean-Baptiste who verbalizes that she wants everything up to and including IM and physical restraints in for her mother to get the treatment she needs. This RN explained the need for IM Zyprexa to get lab work. Pts daughter agreeable stating that the patient used to take Zyprexa and she feels as though this might be a good start. pts daughter verbalizes concern over mothers medical and mental health and would like the patient to receive medication so we can obtain blood work and an EKG Once permission from daughter was obtained, this RN attempted to enter room and explain the need for medication. Pt unwilling to take medication, yelling at this RN to leave her alone. Marie HERBERT then approached the patient, pt willing to change personal pants over to hospital pants, she also surrendered her jewelry to PIEDAD Salazar. Pt then told PIEDAD Salazar that she wants to eat and clean up prior to doing anything. PIEDAD Salazar allowed this patient a snack and to clean herself up in the bathroom. Once back to her room, patient was given IM Zyprexa. Pt required a physical hold to administer IM med, both upper extremities were held by security while this RN administered Zyprexa to the right deltoid. pt yelling at staff but maintain safety at this time Attempted lab draw from patient at 1140, patient continues to refuse
[2024-07-05 11:22] VITALS: RESP 16
--- NOTE | 2024-07-05 11:50 | PC.NURSE ---
RE: belongings Patients pants and jewelry removed and placed with other items in locker 3
--- NOTE | 2024-07-05 12:17 | PC.NURSE ---
Patient once again refused lab draw, Dr. Portillo aware. Unable to safely draw patient without physical restraining
--- NOTE | 2024-07-05 12:51 | PC.NURSE ---
Addendum entered by Michell Pierson 07/05/24 12:56: Pt did not require mechanical restraints, solely physical hold by staff Original Note: RE: Physical Hold Due to patient refusing labs, provider Lindsey requesting that we physically hold the patient for blood work. This RN, ESDRAS Mike, RN, and two security officers entered patients room to draw blood. Pt initially began kicking at staff, but did hold still with physical hold. Blood was drawn from right hand without issue. Pt is now resting on bed in 3, no apparent distress noted
[2024-07-05 12:55] LABS: MANUAL DIFF FLAG NO
[2024-07-05 13:01] LABS: Basophils Absolute Auto 0.1 X10*3/uL (0.0-0.2); Basophils Percent Auto 0.6 % (0-2); Eosinophils Absolute Auto 0.3 X10*3/uL (0.0-0.4); Eosinophils Percent Auto 2.9 % (0-4); Hematocrit 49.7 % (37.0-47.0); Hemoglobin 16.1 g/dl (12.0-16.0); Imm Gran Abs Auto 0.07 X10*3/uL (0.00-0.03); Imm Gran Pct Auto 0.6 % (0.0-0.4); Lymphocytes Absolute Auto 3.4 X10*3/uL (1.2-4.9); Lymphocytes Percent Auto 31.9 % (20-40); Mean Corpuscular HGB Conc 32.4 g/dl (31.0-35.0); Mean Corpuscular Volume 86.6 fL (80.0-98.0); Mean Platelet Volume 10.3 fL (9.4-12.3); Monocytes Absolute Auto 0.8 X10*3/uL (0.1-1.2); Monocytes Percent Auto 6.9 % (2-11); Neutrophils Absolute Auto 6.2 x10*3/uL (2.0-8.3); Neutrophils Percent Auto 57.1 % (45-73); Platelet Count 237 X10*3/uL (160-400); Red Blood Count 5.74 X10*6/uL (4.20-5.50); Red Cell Distribution Width 13.3 % (11.0-16.0); White Blood Count 10.8 X10*3/uL (4.8-10.8)
[2024-07-05 13:23] LABS: Alanine Aminotransferase 25 U/L (0-31); Albumin Level 3.6 g/dL (3.5-5.0); Alkaline Phosphatase 96 U/L (39-117); Anion Gap 14 (12-20); Aspartate Amino Transferase 20 U/L (5-31); Bilirubin Total 0.3 mg/dL (0.0-1.0); Blood Urea Nitrogen 7 mg/dL (9-16); Calcium 8.7 mg/dL (8.4-10.2); Carbon Dioxide 27 mmol/L (22-29); Chloride 102 mmol/L (96-108); Creatinine Clr Calc Pharmacy 59.4; Estimated Glomerular Filt Rate 56; Ethanol < 10 mg/dL; Glucose Random 416 mg/dL (60-115); Potassium 4.8 mmol/L (3.3-5.1); Sodium 138 mmol/L (135-145); Total Protein 6.8 g/dL (6.5-8.0)
[2024-07-05 13:27] LABS: Troponin-I High Sensitivity < 2.7 ng/L (<3.5-17.0)
--- NOTE | 2024-07-05 13:40 | PHA.MEDREC ---
Addendum entered by Art Keane 07/05/24 13:48: reviewed Original Note: Pharmacy Consult ? Medication Reconciliation Pharmacy reviewed med rec done by nursing. No Known Home Meds was confirmed by nurse who got information from patients family. No claims found for patients medical history.
--- NOTE | 2024-07-05 13:55 | PC.NURSE ---
Pt up ambulating to bathroom at this time with steady gait
[2024-07-05 13:56] VITALS: RESP 14
[2024-07-05] MEDS: Insulin Lispro 100 UNIT/ML 3 ML VIAL 10 UNIT SUBCUT (15:22)
--- NOTE | 2024-07-05 15:30 | PC.NURSE ---
Pt received subcutaneous insulin with in the right upper arm. physical hold required for staff and patient safety
[2024-07-05 17:01] VITALS: BP 169/90; PULSE 99; RESP 17; TEMP 36.3; O2SAT 99
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
--- NOTE | 2024-07-05 18:23 | PC.NURSE ---
Patient was offered the flu vaccine upon admission to the unit, to which she declined.
--- NOTE | 2024-07-05 18:24 | PC.NURSE ---
Patient has a dx of diabetes with no current medications to control her blood sugars (POC earlier today in the ED was 416). Provider is aware and will evaluate in the morning.
[2024-07-05 20:00] VITALS: BP 117/67; PULSE 94; RESP 16; TEMP 36.6; O2SAT 96
[2024-07-06 07:55] VITALS: BP 134/71; PULSE 100; RESP 20; TEMP 36.6; O2SAT 95
--- NOTE | 2024-07-06 08:54 | P.HPPS_ITS ---
HPI Date of Service: 07/06/24 Chief Complaint: Psychosis Sources of Information: patient interviewed, chart reviewed and crisis/core team assessment reviewed HPI Subjective Notes: Section 12B Narrative: The patient is a 59-year-old descendant female with a past history of psychotic symptoms with at least 1 prior admission at on 2020. According to the crisis assessment, crisis team members were called by her daughter since the patient had been decompensated slowly in the last 3 years and she had not follow treatment. The police was called since the patient become very irritable and she was rushed to our emergency room and assessed by the care team. According to the care team the patient had been grossly disorganized, living in a in-law apartment next to her daughter's house and progressively she had become more psychotic with word salad, unable to take care herself irritability and unable to take care of herself. While she was in our emergency room the patient become very agitated needed to be chemically restrained with Zyprexa IM. On the intake interview, the patient refused to engage, she was speaking nonsensical and at times and American. I tried to interview the patient on American but the patient become very nonsensical in Bengali and American. She was stating that she does not have a psychiatric condition and she wants to leave as soon as possible. She refused to engage in conversations she become very irritable so we need to terminate the interview very fast. We will try to gather more collateral information. The patient refused to sign any paperwork and she was very irritable. According to the paperwork that we received in the emergency room and [facility] crisis team, the patient has a guardian that was granted on July 04 and possible a Green order but we will have not found that document yet. Past Psychiatric History: In Pt: 4 hospitalizations Refuses all OP care Medical Evaluation Reviewed: Yes COUNT INCLUDES THE [facility] Medical History Alcohol abuse Schizophrenia MDD (major depressive disorder) Cystoid macular edema Ovarian cyst Prediabetes ADHD Premenstrual dysphoric disorder Chronic uveitis of both eyes GERD (gastroesophageal reflux disease) Migraine Depression Surgical History History of salpingo-oophorectomy Family History: Patient's father had a brain tumor Social History: Refer to record. Substance History: Apparently she had a past history of alcohol abuse Trauma History: This is not your concern . The patient refused to elaborate Diagnostics Vital Signs (24Hr): Vital Signs - 24 hr 07/05/24 11:07 07/05/24 11:22 07/05/24 13:56 Temperature Pulse Rate Respiratory Rate 18 16 14 Blood Pressure Pulse Oximetry Oxygen Delivery Method 07/05/24 17:01 07/05/24 20:00 Temperature 97.4 F 98 F Pulse Rate 99 94 Respiratory Rate 17 16 Blood Pressure 169/90 H 117/67 Pulse Oximetry 99 96 Oxygen Delivery Method Room Air Room Air BMI result Body Mass Index 39.2 Labs 07/05/24 12:49 07/05/24 12:49 Labs: Laboratory Results - last 48 hr 07/05/24 12:49 WBC 10.8 RBC 5.74 H Hgb 16.1 H Hct 49.7 H MCV 86.6 MCH 28.0 MCHC 32.4 RDW 13.3 Plt Count 237 MPV 10.3 Immature Gran % (Auto) 0.6 H Neut % (Auto) 57.1 Lymph % (Auto) 31.9 Andrews % (Auto) 6.9 Eos % (Auto) 2.9 Baso % (Auto) 0.6 Lymph # (Auto) 3.4 Andrews # (Auto) 0.8 Eos # (Auto) 0.3 Baso # (Auto) 0.1 Abs Immat Gran (auto) 0.07 H Absolute Neuts (auto) 6.2 Absolute Nucleated RBC 0.000 Nucleated RBC % (auto) 0.0 Sodium 138 Potassium 4.8 Chloride 102 Carbon Dioxide 27 Anion Gap 14 BUN 7 L Creatinine 1.00 Estim Creat Clear Calc 59.4 Estimated GFR 56 Random Glucose 416 H* Calcium 8.7 Total Bilirubin 0.3 AST 20 ALT 25 Alkaline Phosphatase 96 Troponin I High Sens < 2.7 Total Protein 6.8 Albumin 3.6 Ethyl Alcohol < 10 Meds/Allergies Meds Home Medications ?Medication ?Instructions ?Recorded ?Confirmed ?Type No Known Home Meds 07/05/24 07/05/24 History Allergies Allergies Allergy/AdvReac Type Severity Reaction Status Date / Time No Known Allergies Allergy Verified 07/04/24 19:32 Mental Status Exam Mental Status Exam Patient Appearance: Appropriate Patient Orientation: Person and Situation Level of Consciousness: Awake and Appropriate Patient Behavior: Guarded and Passive Mood Description: Calm Affect Description: Blunted Patient Cognition Impaired: Yes Ability to Follow Directions: Poor Speech Pattern: Clear Hallucinations: Auditory Delusions: Paranoid Ideation and Ideas of Reference Thought Process: Distracted and Slowed Thinking Thought Content: positive for Loose Associations and positive for Thought Blocking Judgement: Poor Assessment & Plan Assessment & Plan (1) Schizophrenia: Status: Acute Code(s): F20.9 - Schizophrenia, unspecified Plan The patient is a middle-aged descent female with a past history of schizophrenia with several prior admissions into the hospital noncompliant with medications grossly psychotic with word salad and tangential and irritability with violent behavior that needed IM chemically restrained in the emergency room. Plan 1. Gather collateral information. We will try to contact her daughter who is the guardian. 2. We will try to gather the court order of treatment over objection regarding antipsychotics. 3. Medical assessment. 4. Blood work. 5. Reassessment with results. 6. 15 minute checks Patient educated on: substance abuse, therapeutic strategies and medical condition Reason for continued inpatient stay Substantial Risk for: inability to function, rapid decompensation and med/psych decompensation Statement Statement: I have reviewed the history and physical and performed a pertinent examination on my patient. No changes have occurred unless specified. If the History and Physical was not performed prior to admission, the Hospitalist's service will be consulted for completing the admission physical. Time Spent With Patient Time: Total time managing care of this patient today _45___ minutes.
[2024-07-06 20:00] VITALS: BP 141/63; PULSE 101; RESP 16; TEMP 36.5; O2SAT 94
[2024-07-07 08:00] VITALS: BP 138/64; PULSE 103; RESP 18; TEMP 36.2; O2SAT 97
--- NOTE | 2024-07-07 14:09 | HO.PSYCHPN ---
Subjective Subjective Date of Service: 07/07/24 Reason For Visit: Psychosis Subjective Notes: Conditional Voluntary Interim History: The nursing staff reported the patient had been isolative, suspicious with food she refused medications. The vp digital marketing social media and crm reported the daughter was contacted and apparently they already got the guardianship and there is a hearing for Nik ames in a few days from now. On interview the patient reported that she does not have any problems she does not know why she is here she stated that her daughter wants to control her life and she is not from this state. Mental Status Exam Mental Status Exam Patient Appearance: Appropriate Patient Orientation: Person and Situation Level of Consciousness: Awake and Appropriate Patient Behavior: Guarded and Passive Mood Description: Withdrawn Affect Description: Calm Patient Cognition Impaired: No Ability to Follow Directions: Fair Speech Pattern: Clear Hallucinations: None Delusions: Paranoid Ideation Thought Process: Distracted and Slowed Thinking Thought Content: positive for [place] and positive for Poverty of Content Judgement: Poor Diagnostics Vital Signs (24Hr): Vital Signs - 24 hr 07/06/24 20:00 07/07/24 08:00 Temperature 97.7 F 97.1 F Pulse Rate 101 H 103 H Respiratory Rate 16 18 Blood Pressure 141/63 H 138/64 Pulse Oximetry 94 97 Oxygen Delivery Method Room Air Room Air BMI result Body Mass Index 39.2 Labs 07/05/24 12:49 07/05/24 12:49 Medications Medications Current Medications Acetaminophen (Acetaminophen 325 Mg Tablet) 650 mg PO Q6H PRN PRN Reason: Headache/Pain Mild Scale (1-3) Al Hydroxide/Mg Hydroxide (Magnesium Hydrox/Alum Hydrox 30 Ml Oral.Susp) 30 ml PO Q6H PRN PRN Reason: Heartburn/Nausea Haloperidol (Haloperidol 5 Mg Tablet) 5 mg PO TID PRN PRN Reason: Psychosis Hydroxyzine HCl (Hydroxyzine Hcl 25 Mg Tablet) 25 mg PO Q6H PRN PRN Reason: Anxiety Magnesium Hydroxide (Milk Of Magnesia 30 Ml Oral.Susp) 30 ml PO DAILY PRN PRN Reason: Constipation Trazodone HCl (Trazodone Hcl 50 Mg Tablet) 50 mg PO BEDTIME MRX1 PRN PRN Reason: Insomnia Allergies Allergies Allergy/AdvReac Type Severity Reaction Status Date / Time No Known Allergies Allergy Verified 07/04/24 19:32 Assessment & Plan Assessment & Plan (1) Schizophrenia: Status: Acute Code(s): F20.9 - Schizophrenia, unspecified Plan The patient is a middle-aged descent female with a past history of schizophrenia with several prior admissions into the hospital noncompliant with medications grossly psychotic with word salad and tangential and irritability with violent behavior that needed IM chemically restrained in the emergency room. Plan 1. Gather collateral information. We will try to contact her daughter who is the guardian. 2. We will try to gather the court order of treatment over objection regarding antipsychotics. 3. Medical assessment. 4. Blood work. 5. Reassessment with results. 6. 15 minute checks 7. Filing for Section 7 and 8 Reason for continued inpatient stay Substantial Risk for: inability to function, rapid decompensation and med/psych decompensation Time Spent With Patient Time: Total time managing care of this patient today __20__ minutes.
[2024-07-07 20:00] VITALS: BP 170/72; PULSE 99; RESP 18; TEMP 36.3; O2SAT 98
--- NOTE | 2024-07-08 07:55 | P.PNPSI_ITS ---
Subjective Subjective Date of Service: 07/08/24 Reason For Visit: Psychosis Subjective Notes: Section 7, Section 8 and Section 12B Interim History: The nursing staff reported the patient refused Zyprexa last night, she slept well. On interview the patient remains grossly disorganized stating that she is from [place] and she shouldn't be here. The patient has a guardian, her sister and apparently they are going to filed for a treatment over objection order pretty soon. The patient is on a 12 be so we are going to filed for Section 7 and 8 today. Mental Status Exam Mental Status Exam Patient Appearance: Appropriate Patient Orientation: Person and Situation Level of Consciousness: Awake Patient Behavior: Guarded and Passive Mood Description: Withdrawn Affect Description: Labile Ability to Follow Directions: Fair Speech Pattern: Impoverished and Rapid Hallucinations: None Delusions: Paranoid Ideation and Ideas of Reference Thought Process: Distracted and Slowed Thinking Thought Content: positive for [place] and positive for Poverty of Content Judgement: Poor Diagnostics Vital Signs (24Hr): Vital Signs - 24 hr 07/07/24 08:00 07/07/24 20:00 Temperature 97.1 F 97.3 F Pulse Rate 103 H 99 Respiratory Rate 18 18 Blood Pressure 138/64 170/72 H Pulse Oximetry 97 98 Oxygen Delivery Method Room Air Room Air BMI result Body Mass Index 39.2 Labs 07/05/24 12:49 07/05/24 12:49 Medications Medications Current Medications Acetaminophen (Acetaminophen 325 Mg Tablet) 650 mg PO Q6H PRN PRN Reason: Headache/Pain Mild Scale (1-3) Al Hydroxide/Mg Hydroxide (Magnesium Hydrox/Alum Hydrox 30 Ml Oral.Susp) 30 ml PO Q6H PRN PRN Reason: Heartburn/Nausea Haloperidol (Haloperidol 5 Mg Tablet) 5 mg PO TID PRN PRN Reason: Psychosis Hydroxyzine HCl (Hydroxyzine Hcl 25 Mg Tablet) 25 mg PO Q6H PRN PRN Reason: Anxiety Magnesium Hydroxide (Milk Of Magnesia 30 Ml Oral.Susp) 30 ml PO DAILY PRN PRN Reason: Constipation Olanzapine (Olanzapine 5 Mg Tablet) 5 mg PO BEDTIME BIRDIE Last Admin: 07/07/24 20:06 Dose: Not Given Trazodone HCl (Trazodone Hcl 50 Mg Tablet) 50 mg PO BEDTIME MRX1 PRN PRN Reason: Insomnia Allergies Allergies Allergy/AdvReac Type Severity Reaction Status Date / Time No Known Allergies Allergy Verified 07/04/24 19:32 Assessment & Plan Assessment & Plan (1) Schizophrenia: Status: Acute Code(s): F20.9 - Schizophrenia, unspecified Plan The patient is a middle-aged descent female with a past history of schizophrenia with several prior admissions into the hospital noncompliant with medications grossly psychotic with word salad and tangential and irritability with violent behavior that needed IM chemically restrained in the emergency room. Plan 1. Gather collateral information. We will try to contact her daughter who is the guardian. 2. We will try to gather the court order of treatment over objection regarding antipsychotics. 3. Medical assessment. 4. Blood work. 5. Reassessment with results. 6. 15 minute checks 7. Filing for Section 7 and 8. 8. Started on Zyprexa 5 mg p.o. q.h.s. on July 07. So far the patient had been noncompliant with treatment, grossly psychotic Reason for continued inpatient stay Substantial Risk for: inability to function, rapid decompensation and med/psych decompensation Time Spent With Patient Time: Total time managing care of this patient today __20__ minutes.
[2024-07-08 08:00] VITALS: BP 138/63; PULSE 88; RESP 18; TEMP 36.1; O2SAT 94
[2024-07-09 08:00] VITALS: BP 132/62; PULSE 94; RESP 18; TEMP 36.2; O2SAT 96
--- NOTE | 2024-07-09 08:01 | HO.PSYCHPN ---
Subjective Subjective Date of Service: 07/09/24 Reason For Visit: Psychosis Subjective Notes: Section 12B Interim History: Labile at times as per nursing. Declining medications. Treatment team follow up for court hearing as Section 12 up for review yesterday. was seen in the milieu with other patients. Told communications writer she did not eat any help, did not need medications and was nothing this communications writer could help her with. In context of same, interview was pretty limited Medication Compliance: No Side effects from medications: No Attending Groups: No Review of Systems Review of Systems Yes Unobtainable due to mental status Mental Status Exam Mental Status Exam Patient Appearance: Appropriate Patient Orientation: Person and Situation Level of Consciousness: Awake Patient Behavior: Guarded and Passive Mood Description: Withdrawn Affect Description: Labile Patient Cognition Impaired: No Ability to Follow Directions: Fair Speech Pattern: Impoverished and Rapid Diagnostics Vital Signs (24Hr): BMI result Body Mass Index 39.2 Labs 07/05/24 12:49 07/05/24 12:49 Medications Medications Current Medications Acetaminophen (Acetaminophen 325 Mg Tablet) 650 mg PO Q6H PRN PRN Reason: Headache/Pain Mild Scale (1-3) Al Hydroxide/Mg Hydroxide (Magnesium Hydrox/Alum Hydrox 30 Ml Oral.Susp) 30 ml PO Q6H PRN PRN Reason: Heartburn/Nausea Haloperidol (Haloperidol 5 Mg Tablet) 5 mg PO TID PRN PRN Reason: Psychosis Hydroxyzine HCl (Hydroxyzine Hcl 25 Mg Tablet) 25 mg PO Q6H PRN PRN Reason: Anxiety Magnesium Hydroxide (Milk Of Magnesia 30 Ml Oral.Susp) 30 ml PO DAILY PRN PRN Reason: Constipation Olanzapine (Olanzapine 5 Mg Tablet) 5 mg PO BEDTIME BIRDIE Last Admin: 07/08/24 22:03 Dose: Not Given Trazodone HCl (Trazodone Hcl 50 Mg Tablet) 50 mg PO BEDTIME MRX1 PRN PRN Reason: Insomnia Allergies Allergies Allergy/AdvReac Type Severity Reaction Status Date / Time No Known Allergies Allergy Verified 07/04/24 19:32 Assessment & Plan Assessment & Plan (1) Schizophrenia: Status: Acute Code(s): F20.9 - Schizophrenia, unspecified Plan The patient is a middle-aged descent female with a past history of schizophrenia with several prior admissions into the hospital noncompliant with medications grossly psychotic with word salad and tangential and irritability with violent behavior that needed IM chemically restrained in the emergency room. Plan 1. Gather collateral information. We will try to contact her daughter who is the guardian. 2. We will try to gather the court order of treatment over objection regarding antipsychotics. 3. Medical assessment. 4. Blood work. 5. Reassessment with results. 6. 15 minute checks 7. Filing for Section 7 and 8. 8. Started on Zyprexa 5 mg p.o. q.h.s. on July 07. So far the patient had been noncompliant with treatment, grossly psychotic 07/09/2024: Ongoing care needed in the context of inability to care for self and court hearing pending around involuntary retention and treatment over objections Reason for continued inpatient stay Substantial Risk for: inability to function and rapid decompensation Time Spent With Patient Time: Total time managing care of this patient today ____ minutes.
[2024-07-09 20:00] VITALS: BP 147/70; PULSE 88; RESP 16; TEMP 36.2; O2SAT 98
[2024-07-10 08:05] VITALS: BP 143/70; PULSE 82; RESP 18; TEMP 36.6; O2SAT 96
--- NOTE | 2024-07-10 10:08 | P.PNPSI_ITS ---
Subjective Subjective Date of Service: 07/10/24 Reason For Visit: Psychosis Subjective Notes: Section 12B Interim History: Labile at times as per nursing. Still declining medications. Declined to engage with financial underwriter Akshat virgen , then spoke Serbian throughout. In context of same, interview was pretty limited. Seen in the milieu with other patients. Medication Compliance: No Side effects from medications: No Attending Groups: Intermittent Review of Systems Acute medical concerns: No Review of Systems Review of Systems Yes Unobtainable due to mental status Mental Status Exam Mental Status Exam Narrative: Pleasant. In room. Fair self care. Would not engage and spoke Serbian. Unable to assess SI, HI, psychosis. Diagnostics Vital Signs (24Hr): Vital Signs - 24 hr 07/09/24 20:00 07/10/24 08:05 Temperature 97.1 F 97.8 F Pulse Rate 88 82 Respiratory Rate 16 18 Blood Pressure 147/70 H 143/70 H Pulse Oximetry 98 96 Oxygen Delivery Method Room Air Room Air BMI result Body Mass Index 39.2 Labs 07/05/24 12:49 07/05/24 12:49 Medications Medications Current Medications Acetaminophen (Acetaminophen 325 Mg Tablet) 650 mg PO Q6H PRN PRN Reason: Headache/Pain Mild Scale (1-3) Al Hydroxide/Mg Hydroxide (Magnesium Hydrox/Alum Hydrox 30 Ml Oral.Susp) 30 ml PO Q6H PRN PRN Reason: Heartburn/Nausea Haloperidol (Haloperidol 5 Mg Tablet) 5 mg PO TID PRN PRN Reason: Psychosis Hydroxyzine HCl (Hydroxyzine Hcl 25 Mg Tablet) 25 mg PO Q6H PRN PRN Reason: Anxiety Magnesium Hydroxide (Milk Of Magnesia 30 Ml Oral.Susp) 30 ml PO DAILY PRN PRN Reason: Constipation Olanzapine (Olanzapine 5 Mg Tablet) 5 mg PO BEDTIME BIRDIE Last Admin: 07/09/24 20:40 Dose: Not Given Trazodone HCl (Trazodone Hcl 50 Mg Tablet) 50 mg PO BEDTIME MRX1 PRN PRN Reason: Insomnia Allergies Allergies Allergy/AdvReac Type Severity Reaction Status Date / Time No Known Allergies Allergy Verified 07/04/24 19:32 Assessment & Plan Assessment & Plan (1) Schizophrenia: Status: Acute Code(s): F20.9 - Schizophrenia, unspecified Plan The patient is a middle-aged descent female with a past history of schizophrenia with several prior admissions into the hospital noncompliant with medications grossly psychotic with word salad and tangential and irritability with violent behavior that needed IM chemically restrained in the emergency room. Plan 1. Gather collateral information. We will try to contact her daughter who is the guardian. 2. We will try to gather the court order of treatment over objection regarding antipsychotics. 3. Medical assessment. 4. Blood work. 5. Reassessment with results. 6. 15 minute checks 7. Filing for Section 7 and 8. 8. Started on Zyprexa 5 mg p.o. q.h.s. on July 07. So far the patient had been noncompliant with treatment, grossly psychotic 07/10/2024: Ongoing care needed in the context of inability to care for self and court hearing pending around involuntary retention and treatment over objections Reason for continued inpatient stay Substantial Risk for: inability to function Time Spent With Patient Time: Total time managing care of this patient today ____ minutes.
[2024-07-10 20:00] VITALS: BP 133/66; PULSE 85; RESP 16; TEMP 36.4; O2SAT 97
[2024-07-11 08:00] VITALS: BP 116/59; PULSE 91; RESP 18; TEMP 36.4; O2SAT 97
--- NOTE | 2024-07-11 10:51 | P.PNPSI_ITS ---
Subjective Subjective Date of Service: 07/11/24 Reason For Visit: Psychosis Subjective Notes: Section 7 and Section 8 Interim History: The nursing staff reported the patient had been visible in the unit, social with peers but refused all current medications. The social media marketing manager left the paperwork to file for treatment over objection court. She is the guardian. We have filed for Section 7 and 8 since the patient refused to sign into the hospital no insight into her condition. On interview the patient spoke in a mixed of Turkish and Occitan nonsensical at times. Mental Status Exam Mental Status Exam Patient Appearance: Appropriate Patient Orientation: Person and Situation Level of Consciousness: Awake and Appropriate Patient Behavior: Guarded and Passive Mood Description: Withdrawn Affect Description: Labile Patient Cognition Impaired: Yes Ability to Follow Directions: Fair Speech Pattern: Clear Hallucinations: Auditory Delusions: Paranoid Ideation and Ideas of Reference Thought Process: Distracted and Slowed Thinking Thought Content: positive for [place] and positive for Poverty of Content Judgement: Poor Diagnostics Vital Signs (24Hr): Vital Signs - 24 hr 07/10/24 20:00 07/11/24 08:00 Temperature 97.6 F 97.6 F Pulse Rate 85 91 Respiratory Rate 16 18 Blood Pressure 133/66 116/59 L Pulse Oximetry 97 97 Oxygen Delivery Method Room Air BMI result Body Mass Index 39.2 Labs 07/05/24 12:49 07/05/24 12:49 Medications Medications Current Medications Acetaminophen (Acetaminophen 325 Mg Tablet) 650 mg PO Q6H PRN PRN Reason: Headache/Pain Mild Scale (1-3) Al Hydroxide/Mg Hydroxide (Magnesium Hydrox/Alum Hydrox 30 Ml Oral.Susp) 30 ml PO Q6H PRN PRN Reason: Heartburn/Nausea Haloperidol (Haloperidol 5 Mg Tablet) 5 mg PO TID PRN PRN Reason: Psychosis Hydroxyzine HCl (Hydroxyzine Hcl 25 Mg Tablet) 25 mg PO Q6H PRN PRN Reason: Anxiety Magnesium Hydroxide (Milk Of Magnesia 30 Ml Oral.Susp) 30 ml PO DAILY PRN PRN Reason: Constipation Olanzapine (Olanzapine 5 Mg Tablet) 5 mg PO BEDTIME BIRDIE Last Admin: 07/10/24 21:42 Dose: Not Given Trazodone HCl (Trazodone Hcl 50 Mg Tablet) 50 mg PO BEDTIME MRX1 PRN PRN Reason: Insomnia Allergies Allergies Allergy/AdvReac Type Severity Reaction Status Date / Time No Known Allergies Allergy Verified 07/04/24 19:32 Assessment & Plan Assessment & Plan (1) Schizophrenia: Status: Acute Code(s): F20.9 - Schizophrenia, unspecified Plan The patient is a middle-aged descent female with a past history of schizophrenia with several prior admissions into the hospital noncompliant with medications grossly psychotic with word salad and tangential and irritability with violent behavior that needed IM chemically restrained in the emergency room. Plan 1. Gather collateral information. We will try to contact her daughter who is the guardian. 2. We will try to gather the court order of treatment over objection regarding antipsychotics. 3. Medical assessment. 4. Blood work. 5. Reassessment with results. 6. 15 minute checks 7. Filing for Section 7 and 8. 8. Started on Zyprexa 5 mg p.o. q.h.s. on July 07. So far the patient had been noncompliant with treatment, grossly psychotic Reason for continued inpatient stay Substantial Risk for: inability to function, rapid decompensation and med/psych decompensation Time Spent With Patient Time: Total time managing care of this patient today __20__ minutes.
[2024-07-11 20:00] VITALS: RESP 18
[2024-07-12 08:00] VITALS: RESP 18
--- NOTE | 2024-07-12 15:55 | HO.PSYCHPN ---
Subjective Subjective Date of Service: 07/12/24 Reason For Visit: Psychosis Subjective Notes: Section 7 and Section 8 Interim History: The nursing staff reported the patient had been cheerful, refused vitals since the medications. The social work administrator reported that we will have a family meeting tomorrow. The occupational therapist tried to encourage her to go but she needed to score her out because she was too disruptive and disorganized. Mental Status Exam Mental Status Exam Patient Appearance: Appropriate Patient Orientation: Person and Situation Level of Consciousness: Awake and Appropriate Patient Behavior: Guarded and Passive Mood Description: Withdrawn Affect Description: Constricted Patient Cognition Impaired: Yes Ability to Follow Directions: Good Speech Pattern: Clear Hallucinations: None Delusions: Paranoid Ideation and Ideas of Reference Thought Process: Distracted and Slowed Thinking Thought Content: positive for [place] and positive for Poverty of Content Judgement: Poor Diagnostics Vital Signs (24Hr): Vital Signs - 24 hr 07/11/24 20:00 07/12/24 08:00 Respiratory Rate 18 18 BMI result Body Mass Index 39.2 Labs 07/05/24 12:49 07/05/24 12:49 Medications Medications Current Medications Acetaminophen (Acetaminophen 325 Mg Tablet) 650 mg PO Q6H PRN PRN Reason: Headache/Pain Mild Scale (1-3) Al Hydroxide/Mg Hydroxide (Magnesium Hydrox/Alum Hydrox 30 Ml Oral.Susp) 30 ml PO Q6H PRN PRN Reason: Heartburn/Nausea Haloperidol (Haloperidol 5 Mg Tablet) 5 mg PO TID PRN PRN Reason: Psychosis Hydroxyzine HCl (Hydroxyzine Hcl 25 Mg Tablet) 25 mg PO Q6H PRN PRN Reason: Anxiety Magnesium Hydroxide (Milk Of Magnesia 30 Ml Oral.Susp) 30 ml PO DAILY PRN PRN Reason: Constipation Olanzapine (Olanzapine 5 Mg Tablet) 5 mg PO BEDTIME BIRDIE Last Admin: 07/11/24 22:07 Dose: Not Given Trazodone HCl (Trazodone Hcl 50 Mg Tablet) 50 mg PO BEDTIME MRX1 PRN PRN Reason: Insomnia Allergies Allergies Allergy/AdvReac Type Severity Reaction Status Date / Time No Known Allergies Allergy Verified 07/04/24 19:32 Assessment & Plan Assessment & Plan (1) Schizophrenia: Status: Acute Code(s): F20.9 - Schizophrenia, unspecified Plan The patient is a middle-aged descent female with a past history of schizophrenia with several prior admissions into the hospital noncompliant with medications grossly psychotic with word salad and tangential and irritability with violent behavior that needed IM chemically restrained in the emergency room. Plan 1. Gather collateral information. We will try to contact her daughter who is the guardian. 2. We will try to gather the court order of treatment over objection regarding antipsychotics. 3. Medical assessment. 4. Blood work. 5. Reassessment with results. 6. 15 minute checks 7. Filing for Section 7 and 8. 8. Started on Zyprexa 5 mg p.o. q.h.s. on July 07. So far the patient had been noncompliant with treatment, grossly psychotic Reason for continued inpatient stay Substantial Risk for: inability to function, rapid decompensation and med/psych decompensation Time Spent With Patient Time: Total time managing care of this patient today __20__ minutes.
--- NOTE | 2024-07-13 15:16 | HO.PSYCHPN ---
Subjective Subjective Date of Service: 07/13/24 Reason For Visit: Psychosis Subjective Notes: Section 7 and Section 8 Interim History: The nursing staff reported the patient had being denying Zyprexa. She looks internally preoccupied nonsensical. Today we had a family meeting and her daughter reported that she had been more psychotic since 2017 she had several admissions into the hospital and she has always been noncompliant. On interview the patient remains nonsensical at times. We were informed that we will have court tomorrow. Mental Status Exam Mental Status Exam Patient Appearance: Appropriate Patient Orientation: Person and Situation Level of Consciousness: Awake and Appropriate Patient Behavior: Guarded and Passive Mood Description: Withdrawn Affect Description: Labile Patient Cognition Impaired: Yes Ability to Follow Directions: Fair Speech Pattern: Clear Hallucinations: Auditory Delusions: Paranoid Ideation and Ideas of Reference Thought Process: Incoherent, Illogical and Distracted Thought Content: positive for [place] and positive for Poverty of Content Judgement: Poor Diagnostics Vital Signs (24Hr): BMI result Body Mass Index 39.2 Labs 07/05/24 12:49 07/05/24 12:49 Medications Medications Current Medications Acetaminophen (Acetaminophen 325 Mg Tablet) 650 mg PO Q6H PRN PRN Reason: Headache/Pain Mild Scale (1-3) Al Hydroxide/Mg Hydroxide (Magnesium Hydrox/Alum Hydrox 30 Ml Oral.Susp) 30 ml PO Q6H PRN PRN Reason: Heartburn/Nausea Haloperidol (Haloperidol 5 Mg Tablet) 5 mg PO TID PRN PRN Reason: Psychosis Hydroxyzine HCl (Hydroxyzine Hcl 25 Mg Tablet) 25 mg PO Q6H PRN PRN Reason: Anxiety Magnesium Hydroxide (Milk Of Magnesia 30 Ml Oral.Susp) 30 ml PO DAILY PRN PRN Reason: Constipation Non-Formulary Medication (Patient Own Medication) 1 each PO DAILY BIRDIE Olanzapine (Olanzapine 5 Mg Tablet) 5 mg PO BEDTIME BIRDIE Last Admin: 07/12/24 19:51 Dose: Not Given Trazodone HCl (Trazodone Hcl 50 Mg Tablet) 50 mg PO BEDTIME MRX1 PRN PRN Reason: Insomnia Allergies Allergies Allergy/AdvReac Type Severity Reaction Status Date / Time No Known Allergies Allergy Verified 07/04/24 19:32 Assessment & Plan Assessment & Plan (1) Schizophrenia: Status: Acute Code(s): F20.9 - Schizophrenia, unspecified Plan The patient is a middle-aged descent female with a past history of schizophrenia with several prior admissions into the hospital noncompliant with medications grossly psychotic with word salad and tangential and irritability with violent behavior that needed IM chemically restrained in the emergency room. Plan 1. Gather collateral information. We will try to contact her daughter who is the guardian. 2. We will try to gather the court order of treatment over objection regarding antipsychotics. 3. Medical assessment. 4. Blood work. 5. Reassessment with results. 6. 15 minute checks 7. Filing for Section 7 and 8. 8. Started on Zyprexa 5 mg p.o. q.h.s. on July 07. So far the patient had been noncompliant with treatment, grossly psychotic. 9. Family meeting on July 13 with daughter with more collateral information Reason for continued inpatient stay Substantial Risk for: inability to function, rapid decompensation and med/psych decompensation Time Spent With Patient Time: Total time managing care of this patient today __20__ minutes.
[2024-07-13 20:00] VITALS: RESP 18
--- NOTE | 2024-07-14 14:59 | P.PNPSI_ITS ---
Subjective Subjective Date of Service: 07/14/24 Reason For Visit: Psychosis Subjective Notes: Section 7, Section 8 and Section 12B Interim History: The nursing staff reported that the patient was nonsensical, with word salad, withdrawn, not attending to any groups. She has been refusing Zyprexa consistently since admission. On interview, she was not willing to engage. Grossly psychotic. Mental Status Exam Mental Status Exam Patient Appearance: Appropriate Patient Orientation: Person and Situation Level of Consciousness: Awake and Appropriate Patient Behavior: Guarded and Passive Mood Description: Withdrawn Affect Description: Blunted Patient Cognition Impaired: Yes Ability to Follow Directions: Fair Speech Pattern: Impoverished Hallucinations: Auditory Delusions: Paranoid Ideation and Ideas of Reference Thought Process: Illogical and Slowed Thinking Thought Content: positive for [place] and positive for Tangential Judgement: Poor Diagnostics Vital Signs (24Hr): Vital Signs - 24 hr 07/13/24 20:00 Respiratory Rate 18 BMI result Body Mass Index 39.2 Labs 07/05/24 12:49 07/05/24 12:49 Medications Medications Current Medications Acetaminophen (Acetaminophen 325 Mg Tablet) 650 mg PO Q6H PRN PRN Reason: Headache/Pain Mild Scale (1-3) Al Hydroxide/Mg Hydroxide (Magnesium Hydrox/Alum Hydrox 30 Ml Oral.Susp) 30 ml PO Q6H PRN PRN Reason: Heartburn/Nausea Haloperidol (Haloperidol 5 Mg Tablet) 5 mg PO TID PRN PRN Reason: Psychosis Hydroxyzine HCl (Hydroxyzine Hcl 25 Mg Tablet) 25 mg PO Q6H PRN PRN Reason: Anxiety Magnesium Hydroxide (Milk Of Magnesia 30 Ml Oral.Susp) 30 ml PO DAILY PRN PRN Reason: Constipation Pt Own (Alive! Women 's 50+ Multivitamin Gummy) 1 each PO DAILY [facility] Last Admin: 07/14/24 08:41 Dose: Not Given Olanzapine (Olanzapine 5 Mg Tablet) 5 mg PO BEDTIME BIRDIE Last Admin: 07/13/24 21:56 Dose: Not Given Trazodone HCl (Trazodone Hcl 50 Mg Tablet) 50 mg PO BEDTIME MRX1 PRN PRN Reason: Insomnia Allergies Allergies Allergy/AdvReac Type Severity Reaction Status Date / Time No Known Allergies Allergy Verified 07/04/24 19:32 Assessment & Plan Assessment & Plan (1) Schizophrenia: Status: Acute Code(s): F20.9 - Schizophrenia, unspecified Plan The patient is a middle-aged descent female with a past history of schizophrenia with several prior admissions into the hospital noncompliant with medications grossly psychotic with word salad and tangential and irritability with violent behavior that needed IM chemically restrained in the emergency room. Plan 1. Gather collateral information. We will try to contact her daughter who is the guardian. 2. We will try to gather the court order of treatment over objection regarding antipsychotics. 3. Medical assessment. 4. Blood work. 5. Reassessment with results. 6. 15 minute checks 7. Filing for Section 7 and 8. Hearing on July 14. 8. Started on Zyprexa 5 mg p.o. q.h.s. on July 07. So far the patient had been noncompliant with treatment, grossly psychotic. 9. Family meeting on July 13 with daughter with more collateral information. 10. Green order scheduled for July 15. Reason for continued inpatient stay Substantial Risk for: inability to function, rapid decompensation and med/psych decompensation Time Spent With Patient Time: Total time managing care of this patient today __20__ minutes.
[2024-07-14 20:00] VITALS: RESP 18
--- NOTE | 2024-07-15 15:49 | HO.PSYCHPN ---
Subjective Subjective Date of Service: 07/15/24 Reason For Visit: Psychosis Subjective Notes: Green Order, Section 7 and Section 8 Interim History: The nursing staff reported the patient remains grossly psychotic but redirectable. Yesterday she was committed in a Section 7 and 8. On interview I explained her that she was committed but she refused to elaborate and she got angry. We are going to enforce the court order. Mental Status Exam Mental Status Exam Patient Appearance: Appropriate Patient Orientation: Person and Situation Level of Consciousness: Awake and Appropriate Patient Behavior: Guarded and Passive Mood Description: Withdrawn Affect Description: Constricted Patient Cognition Impaired: Yes Ability to Follow Directions: Good Speech Pattern: Clear Hallucinations: None Delusions: Paranoid Ideation and Ideas of Reference Thought Process: Distracted and Slowed Thinking Thought Content: positive for [place] and positive for Poverty of Content Judgement: Poor Diagnostics Vital Signs (24Hr): Vital Signs - 24 hr 07/14/24 20:00 Respiratory Rate 18 BMI result Body Mass Index 39.2 Labs 07/05/24 12:49 07/05/24 12:49 Medications Medications Current Medications Acetaminophen (Acetaminophen 325 Mg Tablet) 650 mg PO Q6H PRN PRN Reason: Headache/Pain Mild Scale (1-3) Al Hydroxide/Mg Hydroxide (Magnesium Hydrox/Alum Hydrox 30 Ml Oral.Susp) 30 ml PO Q6H PRN PRN Reason: Heartburn/Nausea Haloperidol (Haloperidol 5 Mg Tablet) 5 mg PO TID PRN PRN Reason: Psychosis Hydroxyzine HCl (Hydroxyzine Hcl 25 Mg Tablet) 25 mg PO Q6H PRN PRN Reason: Anxiety Magnesium Hydroxide (Milk Of Magnesia 30 Ml Oral.Susp) 30 ml PO DAILY PRN PRN Reason: Constipation Pt Own (Alive! Women 's 50+ Multivitamin Gummy) 1 each PO DAILY BIRDIE Last Admin: 07/15/24 09:01 Dose: Not Given Olanzapine (Olanzapine 5 Mg Tablet) 5 mg PO BEDTIME BIRDIE Last Admin: 07/14/24 20:33 Dose: Not Given Olanzapine (Olanzapine 10 Mg Vial) 5 mg IM DAILY PRN PRN Reason: refusal of PO Trazodone HCl (Trazodone Hcl 50 Mg Tablet) 50 mg PO BEDTIME MRX1 PRN PRN Reason: Insomnia Allergies Allergies Allergy/AdvReac Type Severity Reaction Status Date / Time No Known Allergies Allergy Verified 07/04/24 19:32 Assessment & Plan Assessment & Plan (1) Schizophrenia: Status: Acute Code(s): F20.9 - Schizophrenia, unspecified Plan The patient is a middle-aged descent female with a past history of schizophrenia with several prior admissions into the hospital noncompliant with medications grossly psychotic with word salad and tangential and irritability with violent behavior that needed IM chemically restrained in the emergency room. Plan 1. Gather collateral information. We will try to contact her daughter who is the guardian. 2. We will try to gather the court order of treatment over objection regarding antipsychotics. 3. Medical assessment. 4. Blood work. 5. Reassessment with results. 6. 15 minute checks 7. Filing for Section 7 and 8. Hearing on July 14. 8. Started on Zyprexa 5 mg p.o. q.h.s. on July 07. So far the patient had been noncompliant with treatment, grossly psychotic. 9. Family meeting on July 13 with daughter with more collateral information. 10. Green order scheduled for July 15. Reason for continued inpatient stay Substantial Risk for: inability to function, rapid decompensation and med/psych decompensation Time Spent With Patient Time: Total time managing care of this patient today __20__ minutes.
[2024-07-15 19:50] VITALS: RESP 16
[2024-07-15] MEDS: OLANZapine 10 MG VIAL 5 MG IM (21:20)
--- NOTE | 2024-07-16 06:46 | HO.PSYCHPN ---
Subjective Subjective Date of Service: 07/16/24 Reason For Visit: Psychosis Subjective Notes: Section 7 and Section 8 Guardianship: Yes Interim History: The nursing staff reported that she had been visible in the common areas, with word salad mixing languages. Last we got a Section 7 and 8 and she has a backup IM. The patient did not have insight or understanding that she needs to take medications. She got IM Zyprexa last night Mental Status Exam Mental Status Exam Patient Appearance: Unkempt Patient Orientation: Person and Situation Level of Consciousness: Awake and Appropriate Patient Behavior: Guarded and Passive Mood Description: Calm Affect Description: Constricted Patient Cognition Impaired: Yes Ability to Follow Directions: Poor Speech Pattern: Impoverished and Pressured Hallucinations: Auditory Delusions: Paranoid Ideation and Ideas of Reference Thought Process: Illogical and Distracted Thought Content: positive for [place] and positive for Disorganized Judgement: Poor Diagnostics Vital Signs (24Hr): Vital Signs - 24 hr 07/15/24 19:50 Respiratory Rate 16 BMI result Body Mass Index 39.2 Labs 07/05/24 12:49 07/05/24 12:49 Medications Medications Current Medications Acetaminophen (Acetaminophen 325 Mg Tablet) 650 mg PO Q6H PRN PRN Reason: Headache/Pain Mild Scale (1-3) Al Hydroxide/Mg Hydroxide (Magnesium Hydrox/Alum Hydrox 30 Ml Oral.Susp) 30 ml PO Q6H PRN PRN Reason: Heartburn/Nausea Haloperidol (Haloperidol 5 Mg Tablet) 5 mg PO TID PRN PRN Reason: Psychosis Hydroxyzine HCl (Hydroxyzine Hcl 25 Mg Tablet) 25 mg PO Q6H PRN PRN Reason: Anxiety Magnesium Hydroxide (Milk Of Magnesia 30 Ml Oral.Susp) 30 ml PO DAILY PRN PRN Reason: Constipation Pt Own (Alive! Women 's 50+ Multivitamin Gummy) 1 each PO DAILY BIRDIE Last Admin: 07/15/24 09:01 Dose: Not Given Olanzapine (Olanzapine 5 Mg Tablet) 5 mg PO BEDTIME BIRDIE Last Admin: 07/15/24 21:22 Dose: Not Given Olanzapine (Olanzapine 10 Mg Vial) 5 mg IM DAILY PRN PRN Reason: refusal of PO Last Admin: 07/15/24 21:20 Dose: 5 mg Trazodone HCl (Trazodone Hcl 50 Mg Tablet) 50 mg PO BEDTIME MRX1 PRN PRN Reason: Insomnia Allergies Allergies Allergy/AdvReac Type Severity Reaction Status Date / Time No Known Allergies Allergy Verified 07/04/24 19:32 Assessment & Plan Assessment & Plan (1) Schizophrenia: Status: Acute Code(s): F20.9 - Schizophrenia, unspecified Plan The patient is a middle-aged descent female with a past history of schizophrenia with several prior admissions into the hospital noncompliant with medications grossly psychotic with word salad and tangential and irritability with violent behavior that needed IM chemically restrained in the emergency room. Plan 1. Gather collateral information. We will try to contact her daughter who is the guardian. 2. We will try to gather the court order of treatment over objection regarding antipsychotics. 3. Medical assessment. 4. Blood work. 5. Reassessment with results. 6. 15 minute checks 7. Filing for Section 7 and 8. Hearing on July 14. 8. Started on Zyprexa 5 mg p.o. q.h.s. on July 07. So far the patient had been noncompliant with treatment, grossly psychotic. 9. Family meeting on July 13 with daughter with more collateral information. 10. Green order scheduled for July 15. We got the Section 7 and 8 and we are starting Zyprexa. Reason for continued inpatient stay Substantial Risk for: inability to function, rapid decompensation and med/psych decompensation Time Spent With Patient Time: Total time managing care of this patient today __20__ minutes.
[2024-07-16 08:00] VITALS: RESP 18
[2024-07-16] MEDS: ALIVE WOMEN S PO (12:13)
[2024-07-16] MEDS: MULTIVITAMIN GUMMY PO (12:13)
[2024-07-16] MEDS: OLANZapine 5 MG TABLET PO (20:42)
--- NOTE | 2024-07-17 06:47 | P.PNPSI_ITS ---
Subjective Subjective Date of Service: 07/17/24 Reason For Visit: Psychosis Subjective Notes: Green Order, Section 7 and Section 8 Interim History: The nursing staff reported the patient took her Zyprexa last night, aware of the court order. On interview, she is still disorganized. Mental Status Exam Mental Status Exam Patient Appearance: Appropriate Patient Orientation: Person and Situation Level of Consciousness: Awake Patient Behavior: Guarded and Passive Mood Description: Withdrawn Affect Description: Blunted Patient Cognition Impaired: Yes Ability to Follow Directions: Poor Speech Pattern: Impoverished (Word salad, she mixed languages) Hallucinations: Auditory Delusions: Paranoid Ideation and Ideas of Reference Thought Process: Distracted and Slowed Thinking Thought Content: positive for [place] and positive for Poverty of Content Judgement: Poor Diagnostics Vital Signs (24Hr): Vital Signs - 24 hr 07/16/24 08:00 Respiratory Rate 18 BMI result Body Mass Index 39.2 Labs 07/05/24 12:49 07/05/24 12:49 Medications Medications Current Medications Acetaminophen (Acetaminophen 325 Mg Tablet) 650 mg PO Q6H PRN PRN Reason: Headache/Pain Mild Scale (1-3) Al Hydroxide/Mg Hydroxide (Magnesium Hydrox/Alum Hydrox 30 Ml Oral.Susp) 30 ml PO Q6H PRN PRN Reason: Heartburn/Nausea Haloperidol (Haloperidol 5 Mg Tablet) 5 mg PO TID PRN PRN Reason: Psychosis Hydroxyzine HCl (Hydroxyzine Hcl 25 Mg Tablet) 25 mg PO Q6H PRN PRN Reason: Anxiety Magnesium Hydroxide (Milk Of Magnesia 30 Ml Oral.Susp) 30 ml PO DAILY PRN PRN Reason: Constipation Pt Own (Alive! Women 's 50+ Multivitamin Gummy) 1 each PO DAILY BIRDIE Last Admin: 07/16/24 12:13 Dose: 1 each Olanzapine (Olanzapine 5 Mg Tablet) 5 mg PO BEDTIME BIRDIE Last Admin: 07/16/24 20:42 Dose: 5 mg Olanzapine (Olanzapine 10 Mg Vial) 5 mg IM DAILY PRN PRN Reason: refusal of PO Last Admin: 07/15/24 21:20 Dose: 5 mg Trazodone HCl (Trazodone Hcl 50 Mg Tablet) 50 mg PO BEDTIME MRX1 PRN PRN Reason: Insomnia Allergies Allergies Allergy/AdvReac Type Severity Reaction Status Date / Time No Known Allergies Allergy Verified 07/04/24 19:32 Assessment & Plan Assessment & Plan (1) Schizophrenia: Status: Acute Code(s): F20.9 - Schizophrenia, unspecified Plan The patient is a middle-aged descent female with a past history of schizophrenia with several prior admissions into the hospital noncompliant with medications grossly psychotic with word salad and tangential and irritability with violent behavior that needed IM chemically restrained in the emergency room. Plan 1. Gather collateral information. We will try to contact her daughter who is the guardian. 2. We will try to gather the court order of treatment over objection regarding antipsychotics. 3. Medical assessment. 4. Blood work. 5. Reassessment with results. 6. 15 minute checks 7. Filing for Section 7 and 8. Hearing on July 14. 8. Started on Zyprexa 5 mg p.o. q.h.s. on July 07. So far the patient had been noncompliant with treatment, grossly psychotic. 9. Family meeting on July 13 with daughter with more collateral information. 10. Green order scheduled for July 15. We got the Section 7 and 8 and we are starting Zyprexa. Reason for continued inpatient stay Substantial Risk for: inability to function, rapid decompensation and med/psych decompensation Time Spent With Patient Time: Total time managing care of this patient today _20___ minutes.
[2024-07-17] MEDS: ALIVE WOMEN S PO (08:22)
[2024-07-17] MEDS: MULTIVITAMIN GUMMY PO (08:22)
[2024-07-17 20:00] VITALS: RESP 18
[2024-07-17] MEDS: OLANZapine 5 MG TABLET PO (20:06)
--- NOTE | 2024-07-18 13:57 | HO.PSYCHPN ---
Subjective Subjective Date of Service: 07/18/24 Reason For Visit: Psychosis Subjective Notes: Section 7 and Section 8 Interim History: The nursing staff reported the patient had been superficial, disorganized internally preoccupied responding to internal stimuli. She slept 5 hours. On interview the patient denies new symptoms, she had been compliant of Zyprexa since she has court order. Mental Status Exam Mental Status Exam Patient Appearance: Appropriate Patient Orientation: Person and Situation Level of Consciousness: Awake and Appropriate Patient Behavior: Guarded and Passive Mood Description: Withdrawn Affect Description: Constricted Patient Cognition Impaired: Yes Ability to Follow Directions: Good Speech Pattern: Clear Hallucinations: Auditory Delusions: Paranoid Ideation and Ideas of Reference Thought Process: Distracted and Slowed Thinking Thought Content: positive for [place] and positive for Poverty of Content Judgement: Poor Diagnostics Vital Signs (24Hr): Vital Signs - 24 hr 07/17/24 20:00 Respiratory Rate 18 BMI result Body Mass Index 39.2 Labs 07/05/24 12:49 07/05/24 12:49 Medications Medications Current Medications Acetaminophen (Acetaminophen 325 Mg Tablet) 650 mg PO Q6H PRN PRN Reason: Headache/Pain Mild Scale (1-3) Al Hydroxide/Mg Hydroxide (Magnesium Hydrox/Alum Hydrox 30 Ml Oral.Susp) 30 ml PO Q6H PRN PRN Reason: Heartburn/Nausea Haloperidol (Haloperidol 5 Mg Tablet) 5 mg PO TID PRN PRN Reason: Psychosis Hydroxyzine HCl (Hydroxyzine Hcl 25 Mg Tablet) 25 mg PO Q6H PRN PRN Reason: Anxiety Magnesium Hydroxide (Milk Of Magnesia 30 Ml Oral.Susp) 30 ml PO DAILY PRN PRN Reason: Constipation Pt Own (Alive! Women 's 50+ Multivitamin Gummy) 1 each PO DAILY BIRDIE Last Admin: 07/18/24 08:40 Dose: Not Given Olanzapine (Olanzapine 5 Mg Tablet) 5 mg PO BEDTIME BIRDIE Last Admin: 07/17/24 20:06 Dose: 5 mg Olanzapine (Olanzapine 10 Mg Vial) 5 mg IM DAILY PRN PRN Reason: refusal of PO Last Admin: 07/15/24 21:20 Dose: 5 mg Trazodone HCl (Trazodone Hcl 50 Mg Tablet) 50 mg PO BEDTIME MRX1 PRN PRN Reason: Insomnia Allergies Allergies Allergy/AdvReac Type Severity Reaction Status Date / Time No Known Allergies Allergy Verified 07/04/24 19:32 Assessment & Plan Assessment & Plan (1) Schizophrenia: Status: Acute Code(s): F20.9 - Schizophrenia, unspecified Plan The patient is a middle-aged descent female with a past history of schizophrenia with several prior admissions into the hospital noncompliant with medications grossly psychotic with word salad and tangential and irritability with violent behavior that needed IM chemically restrained in the emergency room. Plan 1. Gather collateral information. We will try to contact her daughter who is the guardian. 2. We will try to gather the court order of treatment over objection regarding antipsychotics. 3. Medical assessment. 4. Blood work. 5. Reassessment with results. 6. 15 minute checks 7. Filing for Section 7 and 8. Hearing on July 14. 8. Started on Zyprexa 5 mg p.o. q.h.s. on July 07. So far the patient had been noncompliant with treatment, grossly psychotic. 9. Family meeting on July 13 with daughter with more collateral information. 10. Green order scheduled for July 15. We got the Section 7 and 8 and we are starting Zyprexa. Reason for continued inpatient stay Substantial Risk for: inability to function, rapid decompensation and med/psych decompensation Time Spent With Patient Time: Total time managing care of this patient today __20__ minutes.
[2024-07-18] MEDS: OLANZapine 5 MG TABLET PO (20:57)
[2024-07-19 08:00] VITALS: RESP 18
[2024-07-19] MEDS: MULTIVITAMIN GUMMY PO (08:59)
[2024-07-19] MEDS: ALIVE WOMEN S PO (08:59)
--- NOTE | 2024-07-19 16:27 | HO.PSYCHPN ---
Subjective Subjective Date of Service: 07/19/24 Reason For Visit: Psychosis Subjective Notes: Section 7 and Section 8 Interim History: The nursing staff reported the patient had being internally preoccupied with word salad refused vital signs. On interview the patient still with word salad, internally preoccupied. We increasing the Zyprexa to 10 mg p.o. q.h.s.. Mental Status Exam Mental Status Exam Patient Appearance: Appropriate Patient Orientation: Person and Situation Level of Consciousness: Awake and Appropriate Patient Behavior: Guarded and Passive Mood Description: Withdrawn Affect Description: Constricted Patient Cognition Impaired: Yes Ability to Follow Directions: Good Speech Pattern: Clear (Nonsensical at times mixing language as word salad) Hallucinations: Auditory Delusions: Paranoid Ideation and Ideas of Reference Thought Process: Distracted and Slowed Thinking Thought Content: positive for Poverty of Content and positive for Thought Blocking Judgement: Poor Diagnostics Vital Signs (24Hr): Vital Signs - 24 hr 07/19/24 08:00 Respiratory Rate 18 BMI result Body Mass Index 39.2 Labs 07/05/24 12:49 07/05/24 12:49 Medications Medications Current Medications Acetaminophen (Acetaminophen 325 Mg Tablet) 650 mg PO Q6H PRN PRN Reason: Headache/Pain Mild Scale (1-3) Al Hydroxide/Mg Hydroxide (Magnesium Hydrox/Alum Hydrox 30 Ml Oral.Susp) 30 ml PO Q6H PRN PRN Reason: Heartburn/Nausea Haloperidol (Haloperidol 5 Mg Tablet) 5 mg PO TID PRN PRN Reason: Psychosis Hydroxyzine HCl (Hydroxyzine Hcl 25 Mg Tablet) 25 mg PO Q6H PRN PRN Reason: Anxiety Magnesium Hydroxide (Milk Of Magnesia 30 Ml Oral.Susp) 30 ml PO DAILY PRN PRN Reason: Constipation Pt Own (Alive! Women 's 50+ Multivitamin Gummy) 1 each PO DAILY BIRDIE Last Admin: 07/19/24 08:59 Dose: 1 each Olanzapine (Olanzapine 10 Mg Vial) 5 mg IM DAILY PRN PRN Reason: refusal of PO Last Admin: 07/15/24 21:20 Dose: 5 mg Olanzapine (Olanzapine 10 Mg Tablet) 10 mg PO BEDTIME BIRDIE Trazodone HCl (Trazodone Hcl 50 Mg Tablet) 50 mg PO BEDTIME MRX1 PRN PRN Reason: Insomnia Allergies Allergies Allergy/AdvReac Type Severity Reaction Status Date / Time No Known Allergies Allergy Verified 07/04/24 19:32 Assessment & Plan Assessment & Plan (1) Schizophrenia: Status: Acute Code(s): F20.9 - Schizophrenia, unspecified Plan The patient is a middle-aged descent female with a past history of schizophrenia with several prior admissions into the hospital noncompliant with medications grossly psychotic with word salad and tangential and irritability with violent behavior that needed IM chemically restrained in the emergency room. Plan 1. Gather collateral information. We will try to contact her daughter who is the guardian. 2. We will try to gather the court order of treatment over objection regarding antipsychotics. 3. Medical assessment. 4. Blood work. 5. Reassessment with results. 6. 15 minute checks 7. Filing for Section 7 and 8. Hearing on July 14. 8. Started on Zyprexa 5 mg p.o. q.h.s. on July 07. So far the patient had been noncompliant with treatment, grossly psychotic. 9. Family meeting on July 13 with daughter with more collateral information. 10. Green order scheduled for July 15. We got the Section 7 and 8 and we are starting Zyprexa. Reason for continued inpatient stay Substantial Risk for: inability to function, rapid decompensation and med/psych decompensation Time Spent With Patient Time: Total time managing care of this patient today __20__ minutes.
[2024-07-19] MEDS: OLANZapine 10 MG TABLET PO (20:49)
[2024-07-20] MEDS: MULTIVITAMIN GUMMY PO (08:13)
[2024-07-20] MEDS: ALIVE WOMEN S PO (08:13)
--- NOTE | 2024-07-20 13:29 | HO.PSYCHPN ---
Subjective Subjective Date of Service: 07/20/24 Reason For Visit: Psychosis Subjective Notes: Section 7 and Section 8 Interim History: The nursing staff reported the patient has refused her vital signs slept well all night no over-sedation with increase of Zyprexa. The occupational therapist reported that she has not attend to groups that she is nonsensical. On interview the patient denies new symptoms still nonsensical grossly psychotic. Mental Status Exam Mental Status Exam Patient Appearance: Appropriate Patient Orientation: Person and Situation Level of Consciousness: Awake and Appropriate Patient Behavior: Guarded and Passive Mood Description: Withdrawn Affect Description: Labile Patient Cognition Impaired: Yes Ability to Follow Directions: Good Speech Pattern: Clear Hallucinations: Auditory Delusions: Paranoid Ideation and Ideas of Reference Thought Process: Distracted and Slowed Thinking Thought Content: positive for [place] and positive for Poverty of Content Judgement: Fair Diagnostics Vital Signs (24Hr): BMI result Body Mass Index 39.2 Labs 07/05/24 12:49 07/05/24 12:49 Medications Medications Current Medications Acetaminophen (Acetaminophen 325 Mg Tablet) 650 mg PO Q6H PRN PRN Reason: Headache/Pain Mild Scale (1-3) Al Hydroxide/Mg Hydroxide (Magnesium Hydrox/Alum Hydrox 30 Ml Oral.Susp) 30 ml PO Q6H PRN PRN Reason: Heartburn/Nausea Haloperidol (Haloperidol 5 Mg Tablet) 5 mg PO TID PRN PRN Reason: Psychosis Hydroxyzine HCl (Hydroxyzine Hcl 25 Mg Tablet) 25 mg PO Q6H PRN PRN Reason: Anxiety Magnesium Hydroxide (Milk Of Magnesia 30 Ml Oral.Susp) 30 ml PO DAILY PRN PRN Reason: Constipation Pt Own (Alive! Women 's 50+ Multivitamin Gummy) 1 each PO DAILY BIRDIE Last Admin: 07/20/24 08:13 Dose: 1 each Olanzapine (Olanzapine 10 Mg Vial) 5 mg IM DAILY PRN PRN Reason: refusal of PO Last Admin: 07/15/24 21:20 Dose: 5 mg Olanzapine (Olanzapine 10 Mg Tablet) 10 mg PO BEDTIME BIRDIE Last Admin: 07/19/24 20:49 Dose: 10 mg Trazodone HCl (Trazodone Hcl 50 Mg Tablet) 50 mg PO BEDTIME MRX1 PRN PRN Reason: Insomnia Allergies Allergies Allergy/AdvReac Type Severity Reaction Status Date / Time No Known Allergies Allergy Verified 07/04/24 19:32 Assessment & Plan Assessment & Plan (1) Schizophrenia: Status: Acute Code(s): F20.9 - Schizophrenia, unspecified Plan The patient is a middle-aged descent female with a past history of schizophrenia with several prior admissions into the hospital noncompliant with medications grossly psychotic with word salad and tangential and irritability with violent behavior that needed IM chemically restrained in the emergency room. Plan 1. Gather collateral information. We will try to contact her daughter who is the guardian. 2. We will try to gather the court order of treatment over objection regarding antipsychotics. 3. Medical assessment. 4. Blood work. 5. Reassessment with results. 6. 15 minute checks 7. Filing for Section 7 and 8. Hearing on July 14. 8. Started on Zyprexa 5 mg p.o. q.h.s. on July 07. So far the patient had been noncompliant with treatment, grossly psychotic. We increase the Zyprexa to 10 mg p.o. q.h.s. on July 19. 9. Family meeting on July 13 with daughter with more collateral information. 10. Green order scheduled for July 15. We got the Section 7 and 8 and we are starting Zyprexa. Reason for continued inpatient stay Substantial Risk for: inability to function, rapid decompensation and med/psych decompensation Time Spent With Patient Time: Total time managing care of this patient today _20___ minutes.
[2024-07-20 20:00] VITALS: RESP 18
[2024-07-20] MEDS: OLANZapine 10 MG TABLET PO (20:17)
--- NOTE | 2024-07-21 08:42 | HO.PSYCHPN ---
Subjective Subjective Reason For Visit: Psychosis Diagnostics Vital Signs (24Hr): Vital Signs - 24 hr 07/20/24 20:00 Respiratory Rate 18 BMI result Body Mass Index 39.2 Labs 07/05/24 12:49 07/05/24 12:49 Medications Medications Current Medications Acetaminophen (Acetaminophen 325 Mg Tablet) 650 mg PO Q6H PRN PRN Reason: Headache/Pain Mild Scale (1-3) Al Hydroxide/Mg Hydroxide (Magnesium Hydrox/Alum Hydrox 30 Ml Oral.Susp) 30 ml PO Q6H PRN PRN Reason: Heartburn/Nausea Haloperidol (Haloperidol 5 Mg Tablet) 5 mg PO TID PRN PRN Reason: Psychosis Hydroxyzine HCl (Hydroxyzine Hcl 25 Mg Tablet) 25 mg PO Q6H PRN PRN Reason: Anxiety Magnesium Hydroxide (Milk Of Magnesia 30 Ml Oral.Susp) 30 ml PO DAILY PRN PRN Reason: Constipation Pt Own (Alive! Women 's 50+ Multivitamin Gummy) 1 each PO DAILY BIRDIE Last Admin: 07/20/24 08:13 Dose: 1 each Olanzapine (Olanzapine 10 Mg Vial) 5 mg IM DAILY PRN PRN Reason: refusal of PO Last Admin: 07/15/24 21:20 Dose: 5 mg Olanzapine (Olanzapine 10 Mg Tablet) 10 mg PO BEDTIME BIRDIE Last Admin: 07/20/24 20:17 Dose: 10 mg Trazodone HCl (Trazodone Hcl 50 Mg Tablet) 50 mg PO BEDTIME MRX1 PRN PRN Reason: Insomnia Allergies Allergies Allergy/AdvReac Type Severity Reaction Status Date / Time No Known Allergies Allergy Verified 07/04/24 19:32 Assessment & Plan Assessment & Plan (1) Schizophrenia: Status: Acute Code(s): F20.9 - Schizophrenia, unspecified Plan The patient is a middle-aged descent female with a past history of schizophrenia with several prior admissions into the hospital noncompliant with medications grossly psychotic with word salad and tangential and irritability with violent behavior that needed IM chemically restrained in the emergency room. Plan 1. Gather collateral information. We will try to contact her daughter who is the guardian. 2. We will try to gather the court order of treatment over objection regarding antipsychotics. 3. Medical assessment. 4. Blood work. 5. Reassessment with results. 6. 15 minute checks 7. Filing for Section 7 and 8. Hearing on July 14. 8. Started on Zyprexa 5 mg p.o. q.h.s. on July 07. So far the patient had been noncompliant with treatment, grossly psychotic. We increase the Zyprexa to 10 mg p.o. q.h.s. on July 19. 9. Family meeting on July 13 with daughter with more collateral information. 10. Green order scheduled for July 15. We got the Section 7 and 8 and we are starting Zyprexa. Time Spent With Patient Time: Total time managing care of this patient today ____ minutes.
[2024-07-21] MEDS: MULTIVITAMIN GUMMY PO (08:54)
[2024-07-21] MEDS: ALIVE WOMEN S PO (08:54)
--- NOTE | 2024-07-21 16:32 | P.PNPSI_ITS ---
Subjective Subjective Date of Service: 07/21/24 Reason For Visit: Psychosis Interim History: Met with patient; discussed with team Patient said that I am fine and expressed she did not really want to talk with screenplay writer. She politely said she has nothing to discuss. She then started talking what sounds to be Citizen Of [place] Mental Status Exam Mental Status Exam Patient Appearance: Appropriate Patient Orientation: Person Level of Consciousness: Awake and Appropriate Patient Behavior: Guarded and Passive Mood Description: Constricted Affect Description: Constricted and Labile Patient Cognition Impaired: Yes Ability to Follow Directions: Fair Speech Pattern: Clear Hallucinations: Auditory (per chart) Delusions: Paranoid Ideation (per chart) Thought Process: Distracted Thought Content: positive for [place] and positive for Poverty of Content Judgement and Insight: Impaired Diagnostics Vital Signs (24Hr): Vital Signs - 24 hr 07/20/24 20:00 Respiratory Rate 18 BMI result Body Mass Index 39.2 Labs 07/05/24 12:49 07/05/24 12:49 Medications Medications Current Medications Acetaminophen (Acetaminophen 325 Mg Tablet) 650 mg PO Q6H PRN PRN Reason: Headache/Pain Mild Scale (1-3) Al Hydroxide/Mg Hydroxide (Magnesium Hydrox/Alum Hydrox 30 Ml Oral.Susp) 30 ml PO Q6H PRN PRN Reason: Heartburn/Nausea Haloperidol (Haloperidol 5 Mg Tablet) 5 mg PO TID PRN PRN Reason: Psychosis Hydroxyzine HCl (Hydroxyzine Hcl 25 Mg Tablet) 25 mg PO Q6H PRN PRN Reason: Anxiety Magnesium Hydroxide (Milk Of Magnesia 30 Ml Oral.Susp) 30 ml PO DAILY PRN PRN Reason: Constipation Pt Own (Alive! Women 's 50+ Multivitamin Gummy) 1 each PO DAILY [facility] Last Admin: 07/21/24 08:54 Dose: 1 each Olanzapine (Olanzapine 10 Mg Vial) 5 mg IM DAILY PRN PRN Reason: refusal of PO Last Admin: 07/15/24 21:20 Dose: 5 mg Olanzapine (Olanzapine 10 Mg Tablet) 10 mg PO BEDTIME BIRDIE Last Admin: 07/20/24 20:17 Dose: 10 mg Trazodone HCl (Trazodone Hcl 50 Mg Tablet) 50 mg PO BEDTIME MRX1 PRN PRN Reason: Insomnia Allergies Allergies Allergy/AdvReac Type Severity Reaction Status Date / Time No Known Allergies Allergy Verified 07/04/24 19:32 Assessment & Plan Assessment & Plan (1) Schizophrenia: Status: Acute Code(s): F20.9 - Schizophrenia, unspecified Reason for continued inpatient stay Substantial Risk for: inability to function Time Spent With Patient Time: Total time managing care of this patient today ____ minutes.
[2024-07-21 20:00] VITALS: RESP 16
[2024-07-21] MEDS: OLANZapine 10 MG TABLET PO (21:16)
[2024-07-22 08:00] VITALS: RESP 18
[2024-07-22] MEDS: MULTIVITAMIN GUMMY PO (09:03)
[2024-07-22] MEDS: ALIVE WOMEN S PO (09:03)
--- NOTE | 2024-07-22 13:09 | P.PNPSI_ITS ---
Subjective Subjective Date of Service: 07/22/24 Reason For Visit: Psychosis Subjective Notes: Section 7 and Section 8 Interim History: The nursing staff reported the patient had been compliant as per court order she looks slightly more engageable but still psychotic. The staff has noticed that she still have word salad. She slept only 3 hours no over-sedation with Zyprexa. On interview the patient denies new symptoms. Mental Status Exam Mental Status Exam Patient Appearance: Appropriate Patient Orientation: Person and Situation Level of Consciousness: Awake Patient Behavior: Guarded and Passive Mood Description: Withdrawn Affect Description: Constricted Patient Cognition Impaired: Yes Ability to Follow Directions: Good Speech Pattern: Clear Hallucinations: None Delusions: Paranoid Ideation and Ideas of Reference Thought Process: Distracted and Slowed Thinking Thought Content: positive for [place], positive for Poverty of Content and positive for Thought Blocking Judgement: Poor Diagnostics Vital Signs (24Hr): Vital Signs - 24 hr 07/21/24 20:00 07/22/24 08:00 Respiratory Rate 16 18 BMI result Body Mass Index 39.2 Labs 07/05/24 12:49 07/05/24 12:49 Medications Medications Current Medications Acetaminophen (Acetaminophen 325 Mg Tablet) 650 mg PO Q6H PRN PRN Reason: Headache/Pain Mild Scale (1-3) Al Hydroxide/Mg Hydroxide (Magnesium Hydrox/Alum Hydrox 30 Ml Oral.Susp) 30 ml PO Q6H PRN PRN Reason: Heartburn/Nausea Haloperidol (Haloperidol 5 Mg Tablet) 5 mg PO TID PRN PRN Reason: Psychosis Hydroxyzine HCl (Hydroxyzine Hcl 25 Mg Tablet) 25 mg PO Q6H PRN PRN Reason: Anxiety Magnesium Hydroxide (Milk Of Magnesia 30 Ml Oral.Susp) 30 ml PO DAILY PRN PRN Reason: Constipation Pt Own (Alive! Women 's 50+ Multivitamin Gummy) 1 each PO DAILY BIRDIE Last Admin: 07/22/24 09:03 Dose: 1 each Olanzapine (Olanzapine 10 Mg Vial) 5 mg IM DAILY PRN PRN Reason: refusal of PO Last Admin: 07/15/24 21:20 Dose: 5 mg Olanzapine (Olanzapine Odt 10 Mg Tab.Rapdis) 10 mg TRANSLINGU BEDTIME BIRDIE Trazodone HCl (Trazodone Hcl 50 Mg Tablet) 50 mg PO BEDTIME MRX1 PRN PRN Reason: Insomnia Allergies Allergies Allergy/AdvReac Type Severity Reaction Status Date / Time No Known Allergies Allergy Verified 07/04/24 19:32 Assessment & Plan Assessment & Plan (1) Schizophrenia: Status: Acute Code(s): F20.9 - Schizophrenia, unspecified Plan The patient is a 59-year-old female with a past history of psychosis had been untreated for several years. She was brought to the emergency room by her daughter who has seek guardianship and role years order since she had been noncompliant with medications and chronically psychotic. Plan 1. The patient had been committed to the hospital she has a Section 7 and 8. 2. Continue Zyprexa titrated at 10 mg p.o. q.h.s. since there were no over- sedation. 3. Reassessment results. Reason for continued inpatient stay Substantial Risk for: inability to function, rapid decompensation and med/psych decompensation Time Spent With Patient Time: Total time managing care of this patient today __20__ minutes.
[2024-07-22 20:00] VITALS: RESP 20
[2024-07-22] MEDS: OLANZapine ODT 10 MG TAB.RAPDIS TRANSLINGU (20:27)
[2024-07-23 08:00] VITALS: RESP 18
[2024-07-23] MEDS: ALIVE WOMEN S PO (08:33)
[2024-07-23] MEDS: MULTIVITAMIN GUMMY PO (08:33)
--- NOTE | 2024-07-23 14:22 | P.PNPSI_ITS ---
Subjective Subjective Date of Service: 07/23/24 Reason For Visit: Psychosis Subjective Notes: Conditional Voluntary Interim History: Patient was seen and discussed in rounds today. Records and plans were reviewed. She has been medication compliant per Nik's order. She is social bright and when making an attempt is understandable otherwise she goes into tangents and in tongues. Eating and sleeping adequately. No changes were made Review of Systems Review of Systems Yes all other systems are reviewed and are negative Mental Status Exam Mental Status Exam Patient Appearance: Appropriate Patient Orientation: Person and Situation Level of Consciousness: Awake Patient Behavior: Guarded and Passive Mood Description: Withdrawn Affect Description: Constricted Patient Cognition Impaired: Yes Ability to Follow Directions: Good Speech Pattern: Clear Hallucinations: None Delusions: Paranoid Ideation and Ideas of Reference Thought Process: Distracted and Slowed Thinking Thought Content: positive for [place], positive for Poverty of Content and positive for Thought Blocking Judgement: Poor Diagnostics Vital Signs (24Hr): Vital Signs - 24 hr 07/22/24 20:00 07/23/24 08:00 Respiratory Rate 20 18 BMI result Body Mass Index 39.2 Labs 07/05/24 12:49 07/05/24 12:49 Medications Medications Current Medications Acetaminophen (Acetaminophen 325 Mg Tablet) 650 mg PO Q6H PRN PRN Reason: Headache/Pain Mild Scale (1-3) Al Hydroxide/Mg Hydroxide (Magnesium Hydrox/Alum Hydrox 30 Ml Oral.Susp) 30 ml PO Q6H PRN PRN Reason: Heartburn/Nausea Haloperidol (Haloperidol 5 Mg Tablet) 5 mg PO TID PRN PRN Reason: Psychosis Hydroxyzine HCl (Hydroxyzine Hcl 25 Mg Tablet) 25 mg PO Q6H PRN PRN Reason: Anxiety Magnesium Hydroxide (Milk Of Magnesia 30 Ml Oral.Susp) 30 ml PO DAILY PRN PRN Reason: Constipation Pt Own (Alive! Women 's 50+ Multivitamin Gummy) 1 each PO DAILY BIRDIE Last Admin: 07/23/24 08:33 Dose: 1 each Olanzapine (Olanzapine 10 Mg Vial) 5 mg IM DAILY PRN PRN Reason: refusal of PO Last Admin: 07/15/24 21:20 Dose: 5 mg Olanzapine (Olanzapine Odt 10 Mg Tab.Rapdis) 10 mg TRANSLINGU BEDTIME BIRDIE Last Admin: 07/22/24 20:27 Dose: 10 mg Trazodone HCl (Trazodone Hcl 50 Mg Tablet) 50 mg PO BEDTIME MRX1 PRN PRN Reason: Insomnia Allergies Allergies Allergy/AdvReac Type Severity Reaction Status Date / Time No Known Allergies Allergy Verified 07/04/24 19:32 Assessment & Plan Assessment & Plan (1) Schizophrenia: Status: Acute Code(s): F20.9 - Schizophrenia, unspecified Plan The patient is a 59-year-old female with a past history of psychosis had been untreated for several years. She was brought to the emergency room by her daughter who has seek guardianship and role years order since she had been noncompliant with medications and chronically psychotic. Plan 1. The patient had been committed to the hospital she has a Section 7 and 8. 2. Continue Zyprexa titrated at 10 mg p.o. q.h.s. since there were no over- sedation. 3. Reassessment results. 07/23: Continue current regimen and plans Reason for continued inpatient stay Substantial Risk for: inability to function Time Spent With Patient Time: Total time managing care of this patient today ____ minutes.
[2024-07-23 20:00] VITALS: RESP 18
[2024-07-23] MEDS: OLANZapine ODT 10 MG TAB.RAPDIS TRANSLINGU (20:15)
[2024-07-24] MEDS: ALIVE WOMEN S PO (08:43)
[2024-07-24] MEDS: MULTIVITAMIN GUMMY PO (08:43)
--- NOTE | 2024-07-24 11:17 | P.PNPSI_ITS ---
Subjective Subjective Date of Service: 07/24/24 Reason For Visit: Psychosis Subjective Notes: Conditional Voluntary Interim History: Patient was seen and discussed in rounds today. Records and plans were reviewed. She is doing well with no behavioral issues. No complaints or side effects. Eating and sleeping well. She is in a pleasant mood today and is quite interactive. No dangerous behaviors. No changes were made today Review of Systems Review of Systems Yes all other systems are reviewed and are negative Mental Status Exam Mental Status Exam Patient Appearance: Appropriate Patient Orientation: Person and Situation Level of Consciousness: Awake Patient Behavior: Guarded and Passive Mood Description: Withdrawn Affect Description: Constricted Patient Cognition Impaired: Yes Ability to Follow Directions: Good Speech Pattern: Clear Hallucinations: None Delusions: Paranoid Ideation and Ideas of Reference Thought Process: Distracted and Slowed Thinking Thought Content: positive for [place], positive for Poverty of Content and positive for Thought Blocking Judgement: Poor Diagnostics Vital Signs (24Hr): Vital Signs - 24 hr 07/23/24 20:00 Respiratory Rate 18 BMI result Body Mass Index 39.2 Labs 07/05/24 12:49 07/05/24 12:49 Medications Medications Current Medications Acetaminophen (Acetaminophen 325 Mg Tablet) 650 mg PO Q6H PRN PRN Reason: Headache/Pain Mild Scale (1-3) Al Hydroxide/Mg Hydroxide (Magnesium Hydrox/Alum Hydrox 30 Ml Oral.Susp) 30 ml PO Q6H PRN PRN Reason: Heartburn/Nausea Haloperidol (Haloperidol 5 Mg Tablet) 5 mg PO TID PRN PRN Reason: Psychosis Hydroxyzine HCl (Hydroxyzine Hcl 25 Mg Tablet) 25 mg PO Q6H PRN PRN Reason: Anxiety Magnesium Hydroxide (Milk Of Magnesia 30 Ml Oral.Susp) 30 ml PO DAILY PRN PRN Reason: Constipation Pt Own (Alive! Women 's 50+ Multivitamin Gummy) 1 each PO DAILY BIRDIE Last Admin: 07/24/24 08:43 Dose: 1 each Olanzapine (Olanzapine 10 Mg Vial) 5 mg IM DAILY PRN PRN Reason: refusal of PO Last Admin: 07/15/24 21:20 Dose: 5 mg Olanzapine (Olanzapine Odt 10 Mg Tab.Rapdis) 10 mg TRANSLINGU BEDTIME BIRDIE Last Admin: 07/23/24 20:15 Dose: 10 mg Trazodone HCl (Trazodone Hcl 50 Mg Tablet) 50 mg PO BEDTIME MRX1 PRN PRN Reason: Insomnia Allergies Allergies Allergy/AdvReac Type Severity Reaction Status Date / Time No Known Allergies Allergy Verified 07/04/24 19:32 Assessment & Plan Assessment & Plan (1) Schizophrenia: Status: Acute Code(s): F20.9 - Schizophrenia, unspecified Plan The patient is a 59-year-old female with a past history of psychosis had been untreated for several years. She was brought to the emergency room by her daughter who has seek guardianship and role years order since she had been noncompliant with medications and chronically psychotic. Plan 1. The patient had been committed to the hospital she has a Section 7 and 8. 2. Continue Zyprexa titrated at 10 mg p.o. q.h.s. since there were no over- sedation. 3. Reassessment results. 07/23: Continue current regimen and plans 07/24: Continue current regimen and plans Reason for continued inpatient stay Substantial Risk for: med/psych decompensation Time Spent With Patient Time: Total time managing care of this patient today ____ minutes.
[2024-07-24 20:00] VITALS: RESP 18
[2024-07-24] MEDS: OLANZapine ODT 10 MG TAB.RAPDIS TRANSLINGU (20:39)
[2024-07-25 08:00] VITALS: RESP 18
[2024-07-25] MEDS: MULTIVITAMIN GUMMY PO (08:08)
[2024-07-25] MEDS: ALIVE WOMEN S PO (08:08)
--- NOTE | 2024-07-25 14:57 | P.PNPSI_ITS ---
Subjective Subjective Date of Service: 07/25/24 Reason For Visit: Psychosis Subjective Notes: Section 7 and Section 8 Interim History: The nursing staff reported the patient has spent most of the day in her bed slept 6 hours. On interview the patient remains internally preoccupied no side-effects with Zyprexa 10. Mental Status Exam Mental Status Exam Patient Appearance: Well Grooomed Patient Orientation: Person and Situation Level of Consciousness: Awake Patient Behavior: Guarded and Passive Mood Description: Calm Affect Description: Constricted Patient Cognition Impaired: Yes Ability to Follow Directions: Good Speech Pattern: Clear Hallucinations: None Delusions: Paranoid Ideation and Thought Insert/Delete Thought Process: Illogical and Linear Thought Content: positive for Circumstantial Judgement: Fair Diagnostics Vital Signs (24Hr): Vital Signs - 24 hr 07/24/24 20:00 07/25/24 08:00 Respiratory Rate 18 18 BMI result Body Mass Index 39.2 Labs 07/05/24 12:49 07/05/24 12:49 Medications Medications Current Medications Acetaminophen (Acetaminophen 325 Mg Tablet) 650 mg PO Q6H PRN PRN Reason: Headache/Pain Mild Scale (1-3) Al Hydroxide/Mg Hydroxide (Magnesium Hydrox/Alum Hydrox 30 Ml Oral.Susp) 30 ml PO Q6H PRN PRN Reason: Heartburn/Nausea Haloperidol (Haloperidol 5 Mg Tablet) 5 mg PO TID PRN PRN Reason: Psychosis Hydroxyzine HCl (Hydroxyzine Hcl 25 Mg Tablet) 25 mg PO Q6H PRN PRN Reason: Anxiety Magnesium Hydroxide (Milk Of Magnesia 30 Ml Oral.Susp) 30 ml PO DAILY PRN PRN Reason: Constipation Pt Own (Alive! Women 's 50+ Multivitamin Gummy) 1 each PO DAILY BIRDIE Last Admin: 07/25/24 08:08 Dose: 1 each Olanzapine (Olanzapine 10 Mg Vial) 5 mg IM DAILY PRN PRN Reason: refusal of PO Last Admin: 07/15/24 21:20 Dose: 5 mg Olanzapine (Olanzapine Odt 10 Mg Tab.Rapdis) 10 mg TRANSLINGU BEDTIME BIRDIE Last Admin: 07/24/24 20:39 Dose: 10 mg Trazodone HCl (Trazodone Hcl 50 Mg Tablet) 50 mg PO BEDTIME MRX1 PRN PRN Reason: Insomnia Allergies Allergies Allergy/AdvReac Type Severity Reaction Status Date / Time No Known Allergies Allergy Verified 07/04/24 19:32 Assessment & Plan Assessment & Plan (1) Schizophrenia: Status: Acute Code(s): F20.9 - Schizophrenia, unspecified Plan The patient is a 59-year-old female with a past history of psychosis had been untreated for several years. She was brought to the emergency room by her daughter who has seek guardianship and role years order since she had been noncompliant with medications and chronically psychotic. Plan 1. The patient had been committed to the hospital she has a Section 7 and 8. 2. Continue Zyprexa titrated at 10 mg p.o. q.h.s. since there were no over- sedation. 3. Reassessment results. Reason for continued inpatient stay Substantial Risk for: inability to function, rapid decompensation and med/psych decompensation Time Spent With Patient Time: Total time managing care of this patient today __20__ minutes.
[2024-07-25] MEDS: OLANZapine ODT 10 MG TAB.RAPDIS TRANSLINGU (20:32)
[2024-07-26 08:00] VITALS: RESP 18
[2024-07-26] MEDS: ALIVE WOMEN S PO (08:02)
[2024-07-26] MEDS: MULTIVITAMIN GUMMY PO (08:02)
--- NOTE | 2024-07-26 13:00 | P.PNPSI_ITS ---
Subjective Subjective Date of Service: 07/26/24 Reason For Visit: Psychosis Subjective Notes: Section 7 and Section 8 Interim History: The nursing staff reported the patient refused her vital signs, she took only her multivitamins. On interview the patient remains internally preoccupied we are going to increase her risk Zyprexa to 15 mg p.o. q.h.s.. Mental Status Exam Mental Status Exam Patient Appearance: Appropriate Patient Orientation: Person and Situation Level of Consciousness: Awake Patient Behavior: Guarded and Passive Mood Description: Withdrawn and Constricted Affect Description: Constricted Patient Cognition Impaired: Yes Ability to Follow Directions: Good Speech Pattern: Clear Hallucinations: None Delusions: Paranoid Ideation and Ideas of Reference Thought Process: Distracted and Slowed Thinking Thought Content: positive for [place] and positive for Poverty of Content Judgement: Fair Diagnostics Vital Signs (24Hr): Vital Signs - 24 hr 07/26/24 08:00 Respiratory Rate 18 BMI result Body Mass Index 39.2 Labs 07/05/24 12:49 07/05/24 12:49 Medications Medications Current Medications Acetaminophen (Acetaminophen 325 Mg Tablet) 650 mg PO Q6H PRN PRN Reason: Headache/Pain Mild Scale (1-3) Al Hydroxide/Mg Hydroxide (Magnesium Hydrox/Alum Hydrox 30 Ml Oral.Susp) 30 ml PO Q6H PRN PRN Reason: Heartburn/Nausea Haloperidol (Haloperidol 5 Mg Tablet) 5 mg PO TID PRN PRN Reason: Psychosis Hydroxyzine HCl (Hydroxyzine Hcl 25 Mg Tablet) 25 mg PO Q6H PRN PRN Reason: Anxiety Magnesium Hydroxide (Milk Of Magnesia 30 Ml Oral.Susp) 30 ml PO DAILY PRN PRN Reason: Constipation Pt Own (Alive! Women 's 50+ Multivitamin Gummy) 1 each PO DAILY BIDRIE Last Admin: 07/26/24 08:02 Dose: 1 each Olanzapine (Olanzapine 10 Mg Vial) 5 mg IM DAILY PRN PRN Reason: refusal of PO Last Admin: 07/15/24 21:20 Dose: 5 mg Olanzapine (Olanzapine Odt 10 Mg Tab.Rapdis) 15 mg TRANSLINGU BEDTIME BIRDIE Trazodone HCl (Trazodone Hcl 50 Mg Tablet) 50 mg PO BEDTIME MRX1 PRN PRN Reason: Insomnia Allergies Allergies Allergy/AdvReac Type Severity Reaction Status Date / Time No Known Allergies Allergy Verified 07/04/24 19:32 Assessment & Plan Assessment & Plan (1) Schizophrenia: Status: Acute Code(s): F20.9 - Schizophrenia, unspecified Plan The patient is a 59-year-old female with a past history of psychosis had been untreated for several years. She was brought to the emergency room by her daughter who has seek guardianship and role years order since she had been noncompliant with medications and chronically psychotic. Plan 1. The patient had been committed to the hospital she has a Section 7 and 8. 2. Continue Zyprexa titrated at 10 mg p.o. q.h.s. since there were no over- sedation. 3. Reassessment results. Reason for continued inpatient stay Substantial Risk for: inability to function, rapid decompensation and med/psych decompensation Time Spent With Patient Time: Total time managing care of this patient today __20__ minutes.
[2024-07-26 20:00] VITALS: RESP 16
[2024-07-26] MEDS: OLANZapine ODT 10 MG TAB.RAPDIS 15 MG TRANSLINGU (20:49)
[2024-07-27 08:00] VITALS: RESP 18
[2024-07-27] MEDS: ALIVE WOMEN S PO (08:18)
[2024-07-27] MEDS: MULTIVITAMIN GUMMY PO (08:18)
--- NOTE | 2024-07-27 09:02 | HO.PSYCHPN ---
Subjective Subjective Date of Service: 07/27/24 Reason For Visit: Psychosis Interim History: Pt seen and discussed with the team. Today, she is very focused with the gifts she received from the team for Juan Alberto. She did not want to talk with tw and was irritated I was interrupting her time with her new belongings which she was very pleased to receive. Team confirms this presentation as they have had to set some limits with her gifts as she has experienced irritability. Medication Compliance: Intermittent Side effects from medications: No Review of Systems Medical Review of Systems: unchanged Review of Systems Review of Systems Yes Unobtainable due to mental status Mental Status Exam Mental Status Exam Patient Appearance: Appropriate Patient Orientation: Person and Situation Level of Consciousness: Awake Patient Behavior: Guarded and Passive Mood Description: Withdrawn and Constricted Affect Description: Constricted Patient Cognition Impaired: Yes Ability to Follow Directions: Good Speech Pattern: Clear Hallucinations: None Delusions: Paranoid Ideation and Ideas of Reference Thought Process: Distracted and Slowed Thinking Thought Content: positive for [place] and positive for Poverty of Content Judgement: Fair Diagnostics Vital Signs (24Hr): Vital Signs - 24 hr 07/26/24 20:00 07/27/24 08:00 Respiratory Rate 16 18 BMI result Body Mass Index 39.2 Labs 07/05/24 12:49 07/05/24 12:49 Medications Medications Current Medications Acetaminophen (Acetaminophen 325 Mg Tablet) 650 mg PO Q6H PRN PRN Reason: Headache/Pain Mild Scale (1-3) Al Hydroxide/Mg Hydroxide (Magnesium Hydrox/Alum Hydrox 30 Ml Oral.Susp) 30 ml PO Q6H PRN PRN Reason: Heartburn/Nausea Haloperidol (Haloperidol 5 Mg Tablet) 5 mg PO TID PRN PRN Reason: Psychosis Hydroxyzine HCl (Hydroxyzine Hcl 25 Mg Tablet) 25 mg PO Q6H PRN PRN Reason: Anxiety Magnesium Hydroxide (Milk Of Magnesia 30 Ml Oral.Susp) 30 ml PO DAILY PRN PRN Reason: Constipation Pt Own (Alive! Women 's 50+ Multivitamin Gummy) 1 each PO DAILY BIRDIE Last Admin: 07/27/24 08:18 Dose: 1 each Olanzapine (Olanzapine 10 Mg Vial) 5 mg IM DAILY PRN PRN Reason: refusal of PO Last Admin: 07/15/24 21:20 Dose: 5 mg Olanzapine (Olanzapine Odt 10 Mg Tab.Rapdis) 15 mg TRANSLINGU BEDTIME BIRDIE Last Admin: 07/26/24 20:49 Dose: 15 mg Trazodone HCl (Trazodone Hcl 50 Mg Tablet) 50 mg PO BEDTIME MRX1 PRN PRN Reason: Insomnia Allergies Allergies Allergy/AdvReac Type Severity Reaction Status Date / Time No Known Allergies Allergy Verified 07/04/24 19:32 Assessment & Plan Assessment & Plan (1) Schizophrenia: Status: Acute Code(s): F20.9 - Schizophrenia, unspecified Plan The patient is a 59-year-old female with a past history of psychosis had been untreated for several years. She was brought to the emergency room by her daughter who has seek guardianship and role years order since she had been noncompliant with medications and chronically psychotic. 07/27/24: Continue current regime and plan of care. Plan 1. The patient had been committed to the hospital she has a Section 7 and 8. 2. Continue Zyprexa titrated at 10 mg p.o. q.h.s. since there were no over-sedation. 3. Reassessment results. Reason for continued inpatient stay Substantial Risk for: rapid decompensation Time Spent With Patient Time: Total time managing care of this patient today ____ minutes.
[2024-07-27 20:00] VITALS: RESP 18
[2024-07-27] MEDS: OLANZapine ODT 10 MG TAB.RAPDIS 15 MG TRANSLINGU (20:28)
[2024-07-28 08:00] VITALS: RESP 16
[2024-07-28] MEDS: ALIVE WOMEN S PO (08:25)
[2024-07-28] MEDS: MULTIVITAMIN GUMMY PO (08:25)
--- NOTE | 2024-07-28 09:25 | PC.NURSE ---
Sherice declined vital signs; Dr. Marinelli notified.
--- NOTE | 2024-07-28 13:29 | PC.NURSE ---
Refused to have her weight done and Dr. Marinelli notified.
--- NOTE | 2024-07-28 14:52 | P.PNPSI_ITS ---
Subjective Subjective Date of Service: 07/28/24 Reason For Visit: Psychosis Subjective Notes: Section 7 and Section 8 Interim History: The nursing staff reported the patient refused her vital signs, yesterday her daughter came to visit her and she was angry and they had an argument. She slept 8 hours. On interview the patient denies new symptoms internally preoccupied. No changes in mental status with Zyprexa 15 mg p.o. q.h.s. Mental Status Exam Mental Status Exam Patient Appearance: Well Grooomed Patient Orientation: Person and Situation Level of Consciousness: Awake and Appropriate Patient Behavior: Guarded and Passive Mood Description: Withdrawn Affect Description: Constricted Patient Cognition Impaired: Yes Ability to Follow Directions: Good Speech Pattern: Clear Hallucinations: None Delusions: Paranoid Ideation and Ideas of Reference Thought Process: Distracted and Slowed Thinking Thought Content: positive for [place] and positive for Poverty of Content Judgement: Poor Diagnostics Vital Signs (24Hr): Vital Signs - 24 hr 07/27/24 20:00 07/28/24 08:00 Respiratory Rate 18 16 BMI result Body Mass Index 39.2 Labs 07/05/24 12:49 07/05/24 12:49 Medications Medications Current Medications Acetaminophen (Acetaminophen 325 Mg Tablet) 650 mg PO Q6H PRN PRN Reason: Headache/Pain Mild Scale (1-3) Al Hydroxide/Mg Hydroxide (Magnesium Hydrox/Alum Hydrox 30 Ml Oral.Susp) 30 ml PO Q6H PRN PRN Reason: Heartburn/Nausea Haloperidol (Haloperidol 5 Mg Tablet) 5 mg PO TID PRN PRN Reason: Psychosis Hydroxyzine HCl (Hydroxyzine Hcl 25 Mg Tablet) 25 mg PO Q6H PRN PRN Reason: Anxiety Magnesium Hydroxide (Milk Of Magnesia 30 Ml Oral.Susp) 30 ml PO DAILY PRN PRN Reason: Constipation Pt Own (Alive! Women 's 50+ Multivitamin Gummy) 1 each PO DAILY BIRDIE Last Admin: 07/28/24 08:25 Dose: 1 each Olanzapine (Olanzapine 10 Mg Vial) 5 mg IM DAILY PRN PRN Reason: refusal of PO Last Admin: 07/15/24 21:20 Dose: 5 mg Olanzapine (Olanzapine Odt 10 Mg Tab.Rapdis) 15 mg TRANSLINGU BEDTIME BIRDIE Last Admin: 07/27/24 20:28 Dose: 15 mg Trazodone HCl (Trazodone Hcl 50 Mg Tablet) 50 mg PO BEDTIME MRX1 PRN PRN Reason: Insomnia Allergies Allergies Allergy/AdvReac Type Severity Reaction Status Date / Time No Known Allergies Allergy Verified 07/04/24 19:32 Assessment & Plan Assessment & Plan (1) Schizophrenia: Status: Acute Code(s): F20.9 - Schizophrenia, unspecified Plan The patient is a 59-year-old female with a past history of psychosis had been untreated for several years. She was brought to the emergency room by her daughter who has seek guardianship and role years order since she had been noncompliant with medications and chronically psychotic. 07/27/24: Continue current regime and plan of care. Plan 1. The patient had been committed to the hospital she has a Section 7 and 8. 2. Continue Zyprexa titrated at 10 mg p.o. q.h.s. since there were no over- sedation. 3. Reassessment results. Reason for continued inpatient stay Substantial Risk for: inability to function, rapid decompensation and med/psych decompensation Time Spent With Patient Time: Total time managing care of this patient today __20__ minutes.
[2024-07-28] MEDS: OLANZapine ODT 10 MG TAB.RAPDIS 15 MG TRANSLINGU (20:49)
[2024-07-29 08:00] VITALS: RESP 18
[2024-07-29] MEDS: ALIVE WOMEN S PO (08:59)
[2024-07-29] MEDS: MULTIVITAMIN GUMMY PO (08:59)
--- NOTE | 2024-07-29 15:55 | P.PNPSI_ITS ---
Subjective Subjective Date of Service: 07/29/24 Reason For Visit: Psychosis Interim History: met with patient; discussed with team pt says she's fine. commercial real estate underwriter offered to talk but pt said she was ok with sitting. she did however share frustration with her Zyprexa being increased and asked why...she challenged that a court order exists saying that a manager life has no right to order medications based the statute [place]... which she expected commercial real estate underwriter to understand. Pt continued to intermittently speak giberish and tell commercial real estate underwriter to look it up. She asked what medication was for but was not willing to accept writers answer, replying with intermittent giberish. Mental Status Exam Mental Status Exam Patient Appearance: Well Grooomed Patient Orientation: Person and Situation Level of Consciousness: Awake and Appropriate Patient Behavior: Guarded, Passive, Suspicious and Good Eye Contact Mood Description: Constricted (irritable) Affect Description: Constricted Patient Cognition Impaired: Yes Ability to Follow Directions: Fair Speech Pattern: Clear (however intermittently talks in giberish) Hallucinations: None Delusions: Paranoid Ideation and Ideas of Reference Thought Process: Distracted, Goal Oriented (can be goal oriented) and Slowed Thinking Thought Content: positive for [place] and positive for Poverty of Content Judgement: Poor Judgement and Insight: impaired Diagnostics Vital Signs (24Hr): Vital Signs - 24 hr 07/29/24 08:00 Respiratory Rate 18 BMI result Body Mass Index 39.2 Labs 07/05/24 12:49 07/05/24 12:49 Medications Medications Current Medications Acetaminophen (Acetaminophen 325 Mg Tablet) 650 mg PO Q6H PRN PRN Reason: Headache/Pain Mild Scale (1-3) Al Hydroxide/Mg Hydroxide (Magnesium Hydrox/Alum Hydrox 30 Ml Oral.Susp) 30 ml PO Q6H PRN PRN Reason: Heartburn/Nausea Haloperidol (Haloperidol 5 Mg Tablet) 5 mg PO TID PRN PRN Reason: Psychosis Hydroxyzine HCl (Hydroxyzine Hcl 25 Mg Tablet) 25 mg PO Q6H PRN PRN Reason: Anxiety Magnesium Hydroxide (Milk Of Magnesia 30 Ml Oral.Susp) 30 ml PO DAILY PRN PRN Reason: Constipation Pt Own (Alive! Women 's 50+ Multivitamin Gummy) 1 each PO DAILY BIRDIE Last Admin: 07/29/24 08:59 Dose: 1 each Olanzapine (Olanzapine 10 Mg Vial) 5 mg IM DAILY PRN PRN Reason: refusal of PO Last Admin: 07/15/24 21:20 Dose: 5 mg Olanzapine (Olanzapine Odt 10 Mg Tab.Rapdis) 15 mg TRANSLINGU BEDTIME BIRDIE Last Admin: 07/28/24 20:49 Dose: 15 mg Trazodone HCl (Trazodone Hcl 50 Mg Tablet) 50 mg PO BEDTIME MRX1 PRN PRN Reason: Insomnia Allergies Allergies Allergy/AdvReac Type Severity Reaction Status Date / Time No Known Allergies Allergy Verified 07/04/24 19:32 Assessment & Plan Assessment & Plan (1) Schizophrenia: Status: Acute Code(s): F20.9 - Schizophrenia, unspecified Plan The patient is a 59-year-old female with a past history of psychosis had been untreated for several years. She was brought to the emergency room by her daughter who has seek guardianship and role years order since she had been noncompliant with medications and chronically psychotic. 07/27/24: Continue current regime and plan of care. 07/29 pt says she's fine. commercial real estate underwriter offered to talk but pt said she was ok with sitting. she did however share frustration with her Zyprexa being increased and asked why...she challenged that a court order exists saying that a manager life has no right to order medications based the statute of [place]... which she expected commercial real estate underwriter to understand. Pt continued to intermittently speak giberish and tell commercial real estate underwriter to look it up. Plan 1. The patient had been committed to the hospital she has a Section 7 and 8. 2. Continue Zyprexa titrated at 15 mg p.o. q.h.s. since there were no over- sedation. 3. Reassessment results. Patient educated on: diagnosis Informed Consent: understands, does not understand and further education needed Reason for continued inpatient stay Substantial Risk for: inability to function Time Spent With Patient Time: Total time managing care of this patient today ____ minutes.
[2024-07-29] MEDS: OLANZapine ODT 10 MG TAB.RAPDIS 15 MG TRANSLINGU (20:20)
[2024-07-30 08:00] VITALS: RESP 18
[2024-07-30] MEDS: MULTIVITAMIN GUMMY PO (08:15)
[2024-07-30] MEDS: ALIVE WOMEN S PO (08:15)
--- NOTE | 2024-07-30 15:21 | P.PNPSI_ITS ---
Subjective Subjective Date of Service: 07/30/24 Reason For Visit: Psychosis Interim History: Pt seen discussed with the team Plan of care reviewed Pt is in the milieu, watching TV. She is guarded when approached, I am fine and has an irritable edge. She is not interested in engaging and is quickly dismissive Denies current concerns/symptoms Medication Compliance: Yes Review of Systems Acute medical concerns: No Medical Review of Systems: unchanged Review of Systems Review of Systems denies Mental Status Exam Mental Status Exam Patient Appearance: Appropriate Patient Orientation: Person Level of Consciousness: Alert Patient Behavior: Guarded, Talkative and Good Eye Contact Mood Description: Withdrawn and Hostile Affect Description: Withdrawn Patient Cognition Impaired: Yes Ability to Follow Directions: Fair Speech Pattern: Spontaneous Speech Judgement: Poor Diagnostics Vital Signs (24Hr): Vital Signs - 24 hr 07/30/24 08:00 Respiratory Rate 18 BMI result Body Mass Index 39.2 Labs 07/05/24 12:49 07/05/24 12:49 Medications Medications Current Medications Acetaminophen (Acetaminophen 325 Mg Tablet) 650 mg PO Q6H PRN PRN Reason: Headache/Pain Mild Scale (1-3) Al Hydroxide/Mg Hydroxide (Magnesium Hydrox/Alum Hydrox 30 Ml Oral.Susp) 30 ml PO Q6H PRN PRN Reason: Heartburn/Nausea Haloperidol (Haloperidol 5 Mg Tablet) 5 mg PO TID PRN PRN Reason: Psychosis Hydroxyzine HCl (Hydroxyzine Hcl 25 Mg Tablet) 25 mg PO Q6H PRN PRN Reason: Anxiety Magnesium Hydroxide (Milk Of Magnesia 30 Ml Oral.Susp) 30 ml PO DAILY PRN PRN Reason: Constipation Pt Own (Alive! Women 's 50+ Multivitamin Gummy) 1 each PO DAILY BIRDIE Last Admin: 07/30/24 08:15 Dose: 1 each Olanzapine (Olanzapine 10 Mg Vial) 5 mg IM DAILY PRN PRN Reason: refusal of PO Last Admin: 07/15/24 21:20 Dose: 5 mg Olanzapine (Olanzapine Odt 10 Mg Tab.Rapdis) 15 mg TRANSLINGU BEDTIME BIRDIE Last Admin: 07/29/24 20:20 Dose: 15 mg Trazodone HCl (Trazodone Hcl 50 Mg Tablet) 50 mg PO BEDTIME MRX1 PRN PRN Reason: Insomnia Allergies Allergies Allergy/AdvReac Type Severity Reaction Status Date / Time No Known Allergies Allergy Verified 07/04/24 19:32 Assessment & Plan Assessment & Plan (1) Schizophrenia: Status: Acute Code(s): F20.9 - Schizophrenia, unspecified Plan The patient is a 59-year-old female with a past history of psychosis had been untreated for several years. She was brought to the emergency room by her daughter who has seek guardianship and role years order since she had been noncompliant with medications and chronically psychotic. 07/27/24: Continue current regime and plan of care. 07/29 pt says she's fine. typewriter ribbon winder offered to talk but pt said she was ok with sitting. she did however share frustration with her Zyprexa being increased and asked why...she challenged that a court order exists saying that a motor equipment commanding officer has no right to order medications based the statute of [place]... which she expected typewriter ribbon winder to understand. Pt continued to intermittently speak [place] and tell typewriter ribbon winder to look it up. 07/30 Continue current regime/plan of care. Plan 1. The patient had been committed to the hospital she has a Section 7 and 8. 2. Continue Zyprexa titrated at 15 mg p.o. q.h.s. since there were no over- sedation. 3. Reassessment results. Reason for continued inpatient stay Substantial Risk for: rapid decompensation Time Spent With Patient Time: Total time managing care of this patient today ____ minutes.
[2024-07-30 19:27] VITALS: RESP 15
[2024-07-30] MEDS: OLANZapine ODT 10 MG TAB.RAPDIS 15 MG TRANSLINGU (20:31)
[2024-07-31 08:00] VITALS: RESP 18
[2024-07-31] MEDS: ALIVE WOMEN S PO (08:18)
[2024-07-31] MEDS: MULTIVITAMIN GUMMY PO (08:18)
--- NOTE | 2024-07-31 13:57 | P.PNPSI_ITS ---
Subjective Subjective Date of Service: 07/31/24 Reason For Visit: Psychosis Interim History: Pt seen, discussed with team. Plan of care reviewed. Pt is with peers, appropriate, having lunch, attentive to her environment, with some interaction, however, still appears guarded. She denies symptoms of concern. Medication Compliance: Yes Side effects from medications: No Attending Groups: Yes Review of Systems Acute medical concerns: No Medical Review of Systems: unchanged Review of Systems Review of Systems denies Mental Status Exam Mental Status Exam Patient Appearance: Appropriate Patient Orientation: Person Level of Consciousness: Alert Patient Behavior: Guarded, Talkative and Good Eye Contact Mood Description: Withdrawn and Hostile Affect Description: Withdrawn Patient Cognition Impaired: Yes Ability to Follow Directions: Fair Speech Pattern: Spontaneous Speech Judgement: Poor Diagnostics Vital Signs (24Hr): Vital Signs - 24 hr 07/30/24 19:27 07/31/24 08:00 Respiratory Rate 15 18 BMI result Body Mass Index 39.2 Labs 07/05/24 12:49 07/05/24 12:49 Medications Medications Current Medications Acetaminophen (Acetaminophen 325 Mg Tablet) 650 mg PO Q6H PRN PRN Reason: Headache/Pain Mild Scale (1-3) Al Hydroxide/Mg Hydroxide (Magnesium Hydrox/Alum Hydrox 30 Ml Oral.Susp) 30 ml PO Q6H PRN PRN Reason: Heartburn/Nausea Haloperidol (Haloperidol 5 Mg Tablet) 5 mg PO TID PRN PRN Reason: Psychosis Hydroxyzine HCl (Hydroxyzine Hcl 25 Mg Tablet) 25 mg PO Q6H PRN PRN Reason: Anxiety Magnesium Hydroxide (Milk Of Magnesia 30 Ml Oral.Susp) 30 ml PO DAILY PRN PRN Reason: Constipation Pt Own (Alive! Women 's 50+ Multivitamin Gummy) 1 each PO DAILY [facility] Last Admin: 07/31/24 08:18 Dose: 1 each Olanzapine (Olanzapine 10 Mg Vial) 5 mg IM DAILY PRN PRN Reason: refusal of PO Last Admin: 07/15/24 21:20 Dose: 5 mg Olanzapine (Olanzapine Odt 10 Mg Tab.Rapdis) 15 mg TRANSLINGU BEDTIME BIRDIE Last Admin: 07/30/24 20:31 Dose: 15 mg Trazodone HCl (Trazodone Hcl 50 Mg Tablet) 50 mg PO BEDTIME MRX1 PRN PRN Reason: Insomnia Allergies Allergies Allergy/AdvReac Type Severity Reaction Status Date / Time No Known Allergies Allergy Verified 12/02/24 19:32 Assessment & Plan Assessment & Plan (1) Schizophrenia: Status: Acute Code(s): F20.9 - Schizophrenia, unspecified Plan The patient is a 59-year-old female with a past history of psychosis had been untreated for several years. She was brought to the emergency room by her daughter who has seek guardianship and role years order since she had been noncompliant with medications and chronically psychotic. 07/27/24: Continue current regime and plan of care. 07/29 pt says she's fine. screenplay writer offered to talk but pt said she was ok with sitting. she did however share frustration with her Zyprexa being increased and asked why...she challenged that a court order exists saying that a athletic equipment custodian has no right to order medications based the statute of [place]... which she expected screenplay writer to understand. Pt continued to intermittently speak alexerish and tell screenplay writer to look it up. 07/30 Continue current regime/plan of care. 07/31 Continue current plan of care/regime. Plan 1. The patient had been committed to the hospital she has a Section 7 and 8. 2. Continue Zyprexa titrated at 15 mg p.o. q.h.s. since there were no over- sedation. 3. Reassessment results. Reason for continued inpatient stay Substantial Risk for: rapid decompensation Time Spent With Patient Time: Total time managing care of this patient today ____ minutes.
[2024-07-31] MEDS: OLANZapine ODT 10 MG TAB.RAPDIS 15 MG TRANSLINGU (20:07)
[2024-08-01 08:00] VITALS: RESP 18
[2024-08-01] MEDS: ALIVE WOMEN S PO (08:11)
[2024-08-01] MEDS: MULTIVITAMIN GUMMY PO (08:11)
--- NOTE | 2024-08-01 14:31 | HO.PSYCHPN ---
Subjective Subjective Date of Service: 08/01/24 Reason For Visit: Psychosis Subjective Notes: Section 7 and Section 8 Interim History: The nursing staff reported the patient has refused vital signs she remains paranoid no changes in her mental status. On interview the patient denies any symptoms looks superficially cooperative. We are going to change her Zyprexa to Invega with for the possibility of long-term Invega. So far the patient has not improve with Zyprexa. We are changing the antipsychotic Mental Status Exam Mental Status Exam Patient Appearance: Appropriate Patient Orientation: Person and Situation Level of Consciousness: Awake and Appropriate Patient Behavior: Guarded and Passive Mood Description: Withdrawn Affect Description: Constricted Patient Cognition Impaired: Yes Ability to Follow Directions: Good Speech Pattern: Clear Hallucinations: Auditory Delusions: Paranoid Ideation and Ideas of Reference Thought Process: Distracted and Slowed Thinking Thought Content: positive for [place] and positive for Poverty of Content Judgement: Poor Diagnostics Vital Signs (24Hr): Vital Signs - 24 hr 08/01/24 08:00 Respiratory Rate 18 BMI result Body Mass Index 39.2 Labs 07/05/24 12:49 07/05/24 12:49 Medications Medications Current Medications Acetaminophen (Acetaminophen 325 Mg Tablet) 650 mg PO Q6H PRN PRN Reason: Headache/Pain Mild Scale (1-3) Al Hydroxide/Mg Hydroxide (Magnesium Hydrox/Alum Hydrox 30 Ml Oral.Susp) 30 ml PO Q6H PRN PRN Reason: Heartburn/Nausea Haloperidol (Haloperidol 5 Mg Tablet) 5 mg PO TID PRN PRN Reason: Psychosis Hydroxyzine HCl (Hydroxyzine Hcl 25 Mg Tablet) 25 mg PO Q6H PRN PRN Reason: Anxiety Magnesium Hydroxide (Milk Of Magnesia 30 Ml Oral.Susp) 30 ml PO DAILY PRN PRN Reason: Constipation Pt Own (Alive! Women 's 50+ Multivitamin Gummy) 1 each PO DAILY [facility] Last Admin: 08/01/24 08:11 Dose: 1 each Olanzapine (Olanzapine 10 Mg Vial) 5 mg IM DAILY PRN PRN Reason: refusal of PO Last Admin: 07/15/24 21:20 Dose: 5 mg Paliperidone (Paliperidone Er 3 Mg Tab.Er.24) 3 mg PO BEDTIME BIRDIE Trazodone HCl (Trazodone Hcl 50 Mg Tablet) 50 mg PO BEDTIME MRX1 PRN PRN Reason: Insomnia Allergies Allergies Allergy/AdvReac Type Severity Reaction Status Date / Time No Known Allergies Allergy Verified 07/04/24 19:32 Assessment & Plan Assessment & Plan (1) Schizophrenia: Status: Acute Code(s): F20.9 - Schizophrenia, unspecified Plan The patient is a 59-year-old female with a past history of psychosis had been untreated for several years. She was brought to the emergency room by her daughter who has seek guardianship and role years order since she had been noncompliant with medications and chronically psychotic. 07/27/24: Continue current regime and plan of care. 07/29 pt says she's fine. fiction and nonfiction writer prose offered to talk but pt said she was ok with sitting. she did however share frustration with her Zyprexa being increased and asked why...she challenged that a court order exists saying that a circuit judge has no right to order medications based the statute of [place]... which she expected fiction and nonfiction writer prose to understand. Pt continued to intermittently speak giberish and tell fiction and nonfiction writer prose to look it up. 07/30 Continue current regime/plan of care. Plan 1. The patient had been committed to the hospital she has a Section 7 and 8. 2. Continue Zyprexa titrated at 15 mg p.o. q.h.s. since there were no over-sedation. So far, Zyprexa was titrated up to 50 mg for several days with no improvement. We decided to discontinue on August 01. 3. Invega 3 mg p.o. q.h.s. on August 01 since she has failed to Zyprexa Reason for continued inpatient stay Substantial Risk for: inability to function, rapid decompensation and med/psych decompensation Time Spent With Patient Time: Total time managing care of this patient today _20___ minutes.
[2024-08-01 20:00] VITALS: RESP 18
[2024-08-01] MEDS: Paliperidone ER 3 MG TAB.ER.24 PO (20:53)
[2024-08-02 08:00] VITALS: RESP 18
[2024-08-02] MEDS: ALIVE WOMEN S PO (08:36)
[2024-08-02] MEDS: MULTIVITAMIN GUMMY PO (08:36)
--- NOTE | 2024-08-02 15:08 | HO.PSYCHPN ---
Subjective Subjective Date of Service: 08/02/24 Reason For Visit: Psychosis Subjective Notes: Conditional Voluntary Interim History: The nursing staff reported the patient had been seclusive, compliant with treatment. On interview the patient refused to elaborate she looks internally preoccupied. No side-effects with the change from Zyprexa to Invega. Mental Status Exam Mental Status Exam Patient Appearance: Appropriate Patient Orientation: Person and Situation Level of Consciousness: Awake and Appropriate Patient Behavior: Guarded and Passive Mood Description: Withdrawn Affect Description: Constricted Patient Cognition Impaired: Yes Ability to Follow Directions: Good Speech Pattern: Clear Hallucinations: None Delusions: Paranoid Ideation and Ideas of Reference Thought Process: Distracted and Slowed Thinking Thought Content: positive for [place] and positive for Poverty of Content Judgement: Poor Diagnostics Vital Signs (24Hr): Vital Signs - 24 hr 08/01/24 20:00 08/02/24 08:00 Respiratory Rate 18 18 BMI result Body Mass Index 39.2 Labs 07/05/24 12:49 07/05/24 12:49 Medications Medications Current Medications Acetaminophen (Acetaminophen 325 Mg Tablet) 650 mg PO Q6H PRN PRN Reason: Headache/Pain Mild Scale (1-3) Al Hydroxide/Mg Hydroxide (Magnesium Hydrox/Alum Hydrox 30 Ml Oral.Susp) 30 ml PO Q6H PRN PRN Reason: Heartburn/Nausea Haloperidol (Haloperidol 5 Mg Tablet) 5 mg PO TID PRN PRN Reason: Psychosis Hydroxyzine HCl (Hydroxyzine Hcl 25 Mg Tablet) 25 mg PO Q6H PRN PRN Reason: Anxiety Magnesium Hydroxide (Milk Of Magnesia 30 Ml Oral.Susp) 30 ml PO DAILY PRN PRN Reason: Constipation Pt Own (Alive! Women 's 50+ Multivitamin Gummy) 1 each PO DAILY [facility] Last Admin: 08/02/24 08:36 Dose: 1 each Olanzapine (Olanzapine 10 Mg Vial) 5 mg IM DAILY PRN PRN Reason: refusal of PO Last Admin: 07/15/24 21:20 Dose: 5 mg Paliperidone (Paliperidone Er 3 Mg Tab.Er.24) 3 mg PO BEDTIME BIRDIE Last Admin: 08/01/24 20:53 Dose: 3 mg Trazodone HCl (Trazodone Hcl 50 Mg Tablet) 50 mg PO BEDTIME MRX1 PRN PRN Reason: Insomnia Allergies Allergies Allergy/AdvReac Type Severity Reaction Status Date / Time No Known Allergies Allergy Verified 07/04/24 19:32 Assessment & Plan Assessment & Plan (1) Schizophrenia: Status: Acute Code(s): F20.9 - Schizophrenia, unspecified Plan The patient is a 59-year-old female with a past history of psychosis had been untreated for several years. She was brought to the emergency room by her daughter who has seek guardianship and role years order since she had been noncompliant with medications and chronically psychotic. 07/27/24: Continue current regime and plan of care. 07/29 pt says she's fine. program writer offered to talk but pt said she was ok with sitting. she did however share frustration with her Zyprexa being increased and asked why...she challenged that a court order exists saying that a employee's representative has no right to order medications based the statute of [place]... which she expected program writer to understand. Pt continued to intermittently speak giberish and tell program writer to look it up. 07/30 Continue current regime/plan of care. Plan 1. The patient had been committed to the hospital she has a Section 7 and 8. 2. Continue Zyprexa titrated at 15 mg p.o. q.h.s. since there were no over-sedation. So far, Zyprexa was titrated up to 50 mg for several days with no improvement. We decided to discontinue on August 01. 3. Invega 3 mg p.o. q.h.s. on August 01 since she has failed to Zyprexa, we are going to increase to 6 mg at night next . Reason for continued inpatient stay Substantial Risk for: inability to function, rapid decompensation and med/psych decompensation Time Spent With Patient Time: Total time managing care of this patient today __20__ minutes.
[2024-08-02 20:00] VITALS: RESP 18
[2024-08-02] MEDS: Paliperidone ER 3 MG TAB.ER.24 PO (21:30)
[2024-08-03 08:00] VITALS: RESP 19
[2024-08-03] MEDS: ALIVE WOMEN S PO (08:37)
[2024-08-03] MEDS: MULTIVITAMIN GUMMY PO (08:37)
--- NOTE | 2024-08-03 16:52 | HO.PSYCHPN ---
Subjective Subjective Date of Service: 08/03/24 Reason For Visit: Psychosis Interim History: Met with patient; discussed with team Patient said that she fine and that she would like to discharge. She says she is ready to leave. Patient says her plans are to go back to [place] and that she is feeling happy. Agreed to talk about it with primary team when they return Mental Status Exam Mental Status Exam Patient Appearance: Appropriate Patient Orientation: Person and Place Level of Consciousness: Awake and Appropriate Patient Behavior: Cooperative and Good Eye Contact Mood Description: Happy Affect Description: Happy Patient Cognition Impaired: Yes Ability to Follow Directions: Fair Speech Pattern: Clear Hallucinations: None Delusions: Paranoid Ideation and Ideas of Reference Thought Process: Distracted and Slowed Thinking Thought Content: positive for [place] and positive for Poverty of Content Judgement: Poor Diagnostics Vital Signs (24Hr): Vital Signs - 24 hr 08/02/24 20:00 08/03/24 08:00 Respiratory Rate 18 19 BMI result Body Mass Index 39.2 Labs 07/05/24 12:49 07/05/24 12:49 Medications Medications Current Medications Acetaminophen (Acetaminophen 325 Mg Tablet) 650 mg PO Q6H PRN PRN Reason: Headache/Pain Mild Scale (1-3) Al Hydroxide/Mg Hydroxide (Magnesium Hydrox/Alum Hydrox 30 Ml Oral.Susp) 30 ml PO Q6H PRN PRN Reason: Heartburn/Nausea Haloperidol (Haloperidol 5 Mg Tablet) 5 mg PO TID PRN PRN Reason: Psychosis Hydroxyzine HCl (Hydroxyzine Hcl 25 Mg Tablet) 25 mg PO Q6H PRN PRN Reason: Anxiety Magnesium Hydroxide (Milk Of Magnesia 30 Ml Oral.Susp) 30 ml PO DAILY PRN PRN Reason: Constipation Pt Own (Alive! Women 's 50+ Multivitamin Gummy) 1 each PO DAILY [facility] Last Admin: 08/03/24 08:37 Dose: 1 each Olanzapine (Olanzapine 10 Mg Vial) 5 mg IM DAILY PRN PRN Reason: refusal of PO Last Admin: 07/15/24 21:20 Dose: 5 mg Paliperidone (Paliperidone Er 3 Mg Tab.Er.24) 3 mg PO BEDTIME BIRDIE Last Admin: 08/02/24 21:30 Dose: 3 mg Trazodone HCl (Trazodone Hcl 50 Mg Tablet) 50 mg PO BEDTIME MRX1 PRN PRN Reason: Insomnia Allergies Allergies Allergy/AdvReac Type Severity Reaction Status Date / Time No Known Allergies Allergy Verified 07/04/24 19:32 Assessment & Plan Assessment & Plan (1) Schizophrenia: Status: Acute Code(s): F20.9 - Schizophrenia, unspecified Plan The patient is a 59-year-old female with a past history of psychosis had been untreated for several years. She was brought to the emergency room by her daughter who has seek guardianship and role years order since she had been noncompliant with medications and chronically psychotic. 07/27/24: Continue current regime and plan of care. 07/29 pt says she's fine. telegraphic typewriter mechanic offered to talk but pt said she was ok with sitting. she did however share frustration with her Zyprexa being increased and asked why...she challenged that a court order exists saying that a loop tender has no right to order medications based the statute of [place]... which she expected telegraphic typewriter mechanic to understand. Pt continued to intermittently speak lavelle and tell telegraphic typewriter mechanic to look it up. 07/30 Continue current regime/plan of care. 07/31 Continue current plan of care/regime. Plan 1. The patient had been committed to the hospital she has a Section 7 and 8. 2. Continue Zyprexa titrated at 15 mg p.o. q.h.s. since there were no over-sedation. 3. Reassessment results. Reason for continued inpatient stay Substantial Risk for: inability to function Time Spent With Patient Time: Total time managing care of this patient today ____ minutes.
[2024-08-03 19:47] VITALS: RESP 18
[2024-08-03] MEDS: Paliperidone ER 3 MG TAB.ER.24 PO (20:12)
[2024-08-04 08:00] VITALS: RESP 18
[2024-08-04] MEDS: ALIVE WOMEN S PO (09:25)
[2024-08-04] MEDS: MULTIVITAMIN GUMMY PO (09:25)
--- NOTE | 2024-08-04 12:24 | HO.PSYCHPN ---
Subjective Subjective Date of Service: 08/04/24 Reason For Visit: Psychosis Subjective Notes: Section 7 and Section 8 Interim History: The nursing staff reported the patient slept 8 hours she had been compliant with treatment. No side effects with Invega 3 mg p.o. q.h.s. On interview the patient denies new symptoms still internally preoccupied. We are going to increase Invega up to 6 mg daily Mental Status Exam Mental Status Exam Patient Appearance: Appropriate Patient Orientation: Person and Situation Level of Consciousness: Awake and Appropriate Patient Behavior: Guarded and Passive Mood Description: Withdrawn Affect Description: Constricted Patient Cognition Impaired: Yes Ability to Follow Directions: Good Speech Pattern: Clear Hallucinations: None Delusions: Paranoid Ideation and Ideas of Reference Thought Process: Distracted and Slowed Thinking Thought Content: positive for [place] and positive for Poverty of Content Judgement: Poor Diagnostics Vital Signs (24Hr): Vital Signs - 24 hr 08/03/24 19:47 08/04/24 08:00 Respiratory Rate 18 18 BMI result Body Mass Index 39.2 Labs 07/05/24 12:49 07/05/24 12:49 Medications Medications Current Medications Acetaminophen (Acetaminophen 325 Mg Tablet) 650 mg PO Q6H PRN PRN Reason: Headache/Pain Mild Scale (1-3) Al Hydroxide/Mg Hydroxide (Magnesium Hydrox/Alum Hydrox 30 Ml Oral.Susp) 30 ml PO Q6H PRN PRN Reason: Heartburn/Nausea Haloperidol (Haloperidol 5 Mg Tablet) 5 mg PO TID PRN PRN Reason: Psychosis Hydroxyzine HCl (Hydroxyzine Hcl 25 Mg Tablet) 25 mg PO Q6H PRN PRN Reason: Anxiety Magnesium Hydroxide (Milk Of Magnesia 30 Ml Oral.Susp) 30 ml PO DAILY PRN PRN Reason: Constipation Pt Own (Alive! Women 's 50+ Multivitamin Gummy) 1 each PO DAILY [facility] Last Admin: 08/04/24 09:25 Dose: 1 each Olanzapine (Olanzapine 10 Mg Vial) 5 mg IM DAILY PRN PRN Reason: refusal of PO Last Admin: 07/15/24 21:20 Dose: 5 mg Paliperidone (Paliperidone Er 6 Mg Tab.Er.24) 6 mg PO BEDTIME BIRDIE Trazodone HCl (Trazodone Hcl 50 Mg Tablet) 50 mg PO BEDTIME MRX1 PRN PRN Reason: Insomnia Allergies Allergies Allergy/AdvReac Type Severity Reaction Status Date / Time No Known Allergies Allergy Verified 07/04/24 19:32 Assessment & Plan Assessment & Plan (1) Schizophrenia: Status: Acute Code(s): F20.9 - Schizophrenia, unspecified Plan The patient is a 59-year-old female with a past history of psychosis had been untreated for several years. She was brought to the emergency room by her daughter who has seek guardianship and role years order since she had been noncompliant with medications and chronically psychotic. 07/27/24: Continue current regime and plan of care. 07/29 pt says she's fine. physician underwriter offered to talk but pt said she was ok with sitting. she did however share frustration with her Zyprexa being increased and asked why...she challenged that a court order exists saying that a mold holder has no right to order medications based the statute of [place]... which she expected physician underwriter to understand. Pt continued to intermittently speak giberish and tell physician underwriter to look it up. 07/30 Continue current regime/plan of care. 07/31 Continue current plan of care/regime. Plan 1. The patient had been committed to the hospital she has a Section 7 and 8. 2. Continue Zyprexa titrated at 15 mg p.o. q.h.s. since there were no over-sedation. We discontinue Zyprexa since there was no improvement. 3. Invega was started, no evidence of side-effects so we are increasing up to 6 mg daily on August 04. The plan is to change to Invega Sustenna. Reason for continued inpatient stay Substantial Risk for: inability to function, rapid decompensation and med/psych decompensation Time Spent With Patient Time: Total time managing care of this patient today _20___ minutes.
[2024-08-04 19:26] VITALS: RESP 17
[2024-08-04] MEDS: Paliperidone ER 6 MG TAB.ER.24 PO (20:00)
[2024-08-05 08:00] VITALS: RESP 18
[2024-08-05] MEDS: MULTIVITAMIN GUMMY PO (08:49)
[2024-08-05] MEDS: ALIVE WOMEN S PO (08:49)
[2024-08-05] MEDS: Paliperidone Palmitate 234 MG/1.5 ML SYRINGE IM (10:12)
--- NOTE | 2024-08-05 13:58 | P.PNPSI_ITS ---
Subjective Subjective Date of Service: 08/05/24 Reason For Visit: Psychosis Subjective Notes: Section 7 and Section 8 Interim History: The nursing staff reported that had patient had been out for medications denies new psychotic symptoms have been superficially cooperative but guarded. The occupational therapist will do a cognitive assessment today. Today on interview I explained her that we are changing her from Invega p.o. to Invega Sustenna and she asked why explained her due to her psychosis so we can plan on discharge planning. Mental Status Exam Mental Status Exam Patient Appearance: Appropriate Patient Orientation: Person and Situation Level of Consciousness: Awake Patient Behavior: Guarded and Passive Mood Description: Withdrawn Affect Description: Blunted Patient Cognition Impaired: Yes Ability to Follow Directions: Good Speech Pattern: Clear Hallucinations: Auditory Delusions: Paranoid Ideation and Ideas of Reference Thought Process: Distracted and Slowed Thinking Thought Content: positive for [place] and positive for Poverty of Content Judgement: Poor Diagnostics Vital Signs (24Hr): Vital Signs - 24 hr 08/04/24 19:26 08/05/24 08:00 Respiratory Rate 17 18 BMI result Body Mass Index 39.2 Labs 07/05/24 12:49 07/05/24 12:49 Medications Medications Current Medications Acetaminophen (Acetaminophen 325 Mg Tablet) 650 mg PO Q6H PRN PRN Reason: Headache/Pain Mild Scale (1-3) Al Hydroxide/Mg Hydroxide (Magnesium Hydrox/Alum Hydrox 30 Ml Oral.Susp) 30 ml PO Q6H PRN PRN Reason: Heartburn/Nausea Haloperidol (Haloperidol 5 Mg Tablet) 5 mg PO TID PRN PRN Reason: Psychosis Hydroxyzine HCl (Hydroxyzine Hcl 25 Mg Tablet) 25 mg PO Q6H PRN PRN Reason: Anxiety Magnesium Hydroxide (Milk Of Magnesia 30 Ml Oral.Susp) 30 ml PO DAILY PRN PRN Reason: Constipation Pt Own (Alive! Women 's 50+ Multivitamin Gummy) 1 each PO DAILY [facility] Last Admin: 08/05/24 08:49 Dose: 1 each Olanzapine (Olanzapine 10 Mg Vial) 5 mg IM DAILY PRN PRN Reason: refusal of PO Last Admin: 07/15/24 21:20 Dose: 5 mg Trazodone HCl (Trazodone Hcl 50 Mg Tablet) 50 mg PO BEDTIME MRX1 PRN PRN Reason: Insomnia Allergies Allergies Allergy/AdvReac Type Severity Reaction Status Date / Time No Known Allergies Allergy Verified 07/04/24 19:32 Assessment & Plan Assessment & Plan (1) Schizophrenia: Status: Acute Code(s): F20.9 - Schizophrenia, unspecified Plan The patient is a 59-year-old female with a past history of psychosis had been untreated for several years. She was brought to the emergency room by her daughter who has seek guardianship and role years order since she had been noncompliant with medications and chronically psychotic. 07/27/24: Continue current regime and plan of care. 07/29 pt says she's fine. play writer offered to talk but pt said she was ok with sitting. she did however share frustration with her Zyprexa being increased and asked why...she challenged that a court order exists saying that a supervisor chlorine liquefaction has no right to order medications based the statute of [place]... which she expected play writer to understand. Pt continued to intermittently speak giberish and tell play writer to look it up. 07/30 Continue current regime/plan of care. 07/31 Continue current plan of care/regime. Plan 1. The patient had been committed to the hospital she has a Section 7 and 8. 2. Continue Zyprexa titrated at 15 mg p.o. q.h.s. since there were no over- sedation. We discontinue Zyprexa since there was no improvement. 3. Invega was started, no evidence of side-effects so we are increasing up to 6 mg daily on August 04. The plan is to change to Invega Sustenna. Invega Sustenna 234 mg today on August [address] We are going to order the 2nd dose of Invega next week for discharge planning. Reason for continued inpatient stay Substantial Risk for: inability to function, rapid decompensation and med/psych decompensation Time Spent With Patient Time: Total time managing care of this patient today _20___ minutes.
[2024-08-05 20:00] VITALS: RESP 18
[2024-08-06] MEDS: MULTIVITAMIN GUMMY PO (08:26)
[2024-08-06] MEDS: ALIVE WOMEN S PO (08:26)
--- NOTE | 2024-08-06 09:43 | HO.PSYCHPN ---
Subjective Subjective Date of Service: 08/06/24 Reason For Visit: Psychosis Subjective Notes: Green Order and Section 7 Interim History: met with patient. Discussed with Nursing. Took Invega injection yesterday. Otherwise will take multivitamins but nothing else. With documentation writer reports that she is okay, but also guarded and reports she took medications but she did not want to but reports he did this so she can hopefully get discharged soon. Denied feeling depressed, suicidal. Medication Compliance: Intermittent Side effects from medications: No Attending Groups: Intermittent Review of Systems Acute medical concerns: No Review of Systems Review of Systems denies Mental Status Exam Mental Status Exam Narrative: Pleasant. In room. Fair self care. Minimal engagement, however did speak Upper Sorbian today.. no SI or HI evident. Did appear guarded and slightly paranoid. Insight judgment is limited Patient Appearance: Appropriate Patient Orientation: Person and Situation Level of Consciousness: Awake Patient Behavior: Guarded and Passive Mood Description: Withdrawn Affect Description: Blunted Patient Cognition Impaired: Yes Ability to Follow Directions: Good Speech Pattern: Clear Diagnostics Vital Signs (24Hr): Vital Signs - 24 hr 08/05/24 20:00 Respiratory Rate 18 BMI result Body Mass Index 39.2 Labs 07/05/24 12:49 07/05/24 12:49 Medications Medications Current Medications Acetaminophen (Acetaminophen 325 Mg Tablet) 650 mg PO Q6H PRN PRN Reason: Headache/Pain Mild Scale (1-3) Al Hydroxide/Mg Hydroxide (Magnesium Hydrox/Alum Hydrox 30 Ml Oral.Susp) 30 ml PO Q6H PRN PRN Reason: Heartburn/Nausea Haloperidol (Haloperidol 5 Mg Tablet) 5 mg PO TID PRN PRN Reason: Psychosis Hydroxyzine HCl (Hydroxyzine Hcl 25 Mg Tablet) 25 mg PO Q6H PRN PRN Reason: Anxiety Magnesium Hydroxide (Milk Of Magnesia 30 Ml Oral.Susp) 30 ml PO DAILY PRN PRN Reason: Constipation Pt Own (Alive! Women 's 50+ Multivitamin Gummy) 1 each PO DAILY [facility] Last Admin: 08/06/24 08:26 Dose: 1 each Olanzapine (Olanzapine 10 Mg Vial) 5 mg IM DAILY PRN PRN Reason: refusal of PO Last Admin: 07/15/24 21:20 Dose: 5 mg Trazodone HCl (Trazodone Hcl 50 Mg Tablet) 50 mg PO BEDTIME MRX1 PRN PRN Reason: Insomnia Allergies Allergies Allergy/AdvReac Type Severity Reaction Status Date / Time No Known Allergies Allergy Verified 07/04/24 19:32 Assessment & Plan Assessment & Plan (1) Schizophrenia: Status: Acute Code(s): F20.9 - Schizophrenia, unspecified Plan The patient is a 59-year-old female with a past history of psychosis had been untreated for several years. She was brought to the emergency room by her daughter who has seek guardianship and role years order since she had been noncompliant with medications and chronically psychotic. 07/27/24: Continue current regime and plan of care. 07/29 pt says she's fine. documentation writer offered to talk but pt said she was ok with sitting. she did however share frustration with her Zyprexa being increased and asked why...she challenged that a court order exists saying that a stockroom selector has no right to order medications based the statute [place] which she expected documentation writer to understand. Pt continued to intermittently speak lavelle and tell documentation writer to look it up. 07/30 Continue current regime/plan of care. 07/31 Continue current plan of care/regime. 08/06/2024: No changes Plan 1. The patient had been committed to the hospital she has a Section 7 and 8. 2. Continue Zyprexa titrated at 15 mg p.o. q.h.s. since there were no over-sedation. We discontinue Zyprexa since there was no improvement. 3. Invega was started, no evidence of side-effects so we are increasing up to 6 mg daily on August 04. The plan is to change to Invega Sustenna. Invega Sustenna 234 mg today on August [address] We are going to order the 2nd dose of Invega next week for discharge planning. Reason for continued inpatient stay Substantial Risk for: rapid decompensation Time Spent With Patient Time: Total time managing care of this patient today ____ minutes.
[2024-08-06 20:00] VITALS: RESP 18
--- NOTE | 2024-08-07 08:27 | P.PNPSI_ITS ---
Subjective Subjective Date of Service: 08/07/24 Reason For Visit: Psychosis Interim History: Met with patient. Discussed with Nursing. Minimal engagement. Doing word search puzzle with room mate. Bright. Pleasant overall- reports that she is okay, but also guarded and remains hopeful can get discharged soon. Denied feeling depressed, suicidal. Medication Compliance: Intermittent Side effects from medications: No Attending Groups: Intermittent Review of Systems Acute medical concerns: No Review of Systems Review of Systems unremarkable Mental Status Exam Mental Status Exam Narrative: Pleasant. In room. Fair self care. Minimal engagement with sql report writer. In room doing word search puzzle with room mate. Was pleasant yet guarded. Eager for discharge. No SI or HI evident. Insight judgment is limited Diagnostics Vital Signs (24Hr): Vital Signs - 24 hr 08/06/24 20:00 Respiratory Rate 18 BMI result Body Mass Index 39.2 Labs 07/05/24 12:49 07/05/24 12:49 Medications Medications Current Medications Acetaminophen (Acetaminophen 325 Mg Tablet) 650 mg PO Q6H PRN PRN Reason: Headache/Pain Mild Scale (1-3) Al Hydroxide/Mg Hydroxide (Magnesium Hydrox/Alum Hydrox 30 Ml Oral.Susp) 30 ml PO Q6H PRN PRN Reason: Heartburn/Nausea Haloperidol (Haloperidol 5 Mg Tablet) 5 mg PO TID PRN PRN Reason: Psychosis Hydroxyzine HCl (Hydroxyzine Hcl 25 Mg Tablet) 25 mg PO Q6H PRN PRN Reason: Anxiety Magnesium Hydroxide (Milk Of Magnesia 30 Ml Oral.Susp) 30 ml PO DAILY PRN PRN Reason: Constipation Pt Own (Alive! Women 's 50+ Multivitamin Gummy) 1 each PO DAILY [facility] Last Admin: 08/06/24 08:26 Dose: 1 each Olanzapine (Olanzapine 10 Mg Vial) 5 mg IM DAILY PRN PRN Reason: refusal of PO Last Admin: 07/15/24 21:20 Dose: 5 mg Trazodone HCl (Trazodone Hcl 50 Mg Tablet) 50 mg PO BEDTIME MRX1 PRN PRN Reason: Insomnia Allergies Allergies Allergy/AdvReac Type Severity Reaction Status Date / Time No Known Allergies Allergy Verified 07/04/24 19:32 Assessment & Plan Assessment & Plan (1) Schizophrenia: Status: Acute Code(s): F20.9 - Schizophrenia, unspecified Plan The patient is a 59-year-old female with a past history of psychosis had been untreated for several years. She was brought to the emergency room by her daughter who has seek guardianship and role years order since she had been noncompliant with medications and chronically psychotic. 07/27/24: Continue current regime and plan of care. 07/29 pt says she's fine. sql report writer offered to talk but pt said she was ok with sitting. she did however share frustration with her Zyprexa being increased and asked why...she challenged that a court order exists saying that a household assistant has no right to order medications based the statute [place]... which she expected sql report writer to understand. Pt continued to intermittently speak lavelle and tell sql report writer to look it up. 07/30 Continue current regime/plan of care. 07/31 Continue current plan of care/regime. 08/07/23: continue current tx plan Plan 1. The patient had been committed to the hospital she has a Section 7 and 8. 2. Continue Zyprexa titrated at 15 mg p.o. q.h.s. since there were no over- sedation. We discontinue Zyprexa since there was no improvement. 3. Invega was started, no evidence of side-effects so we are increasing up to 6 mg daily on August 04. The plan is to change to Invega Sustenna. Invega Sustenna 234 mg today on August [address] We are going to order the 2nd dose of Invega next week for discharge planning. Reason for continued inpatient stay Substantial Risk for: rapid decompensation Time Spent With Patient Time: Total time managing care of this patient today ____ minutes.
[2024-08-07] MEDS: MULTIVITAMIN GUMMY PO (08:46)
[2024-08-07] MEDS: ALIVE WOMEN S PO (08:46)
[2024-08-07 20:00] VITALS: RESP 18
--- NOTE | 2024-08-08 14:41 | P.PNPSI_ITS ---
Subjective Subjective Date of Service: 08/08/24 Reason For Visit: Psychosis Subjective Notes: Section 7 and Section 8 Interim History: The nursing staff reported the patient had been eating well she slept 7 hours most of the time on her bed. Last Thursday she got her 1st shot of Invega Sustenna with no side-effects. On interview the patient is asking for discharge explained her that she will get an Invega shot next Thursday and she can be taking wants some [place] instead of taking the pill. She does not have any insight into her condition. Mental Status Exam Mental Status Exam Patient Appearance: Appropriate Patient Orientation: Person and Situation Level of Consciousness: Awake and Appropriate Patient Behavior: Guarded and Passive Mood Description: Withdrawn Affect Description: Constricted Patient Cognition Impaired: Yes Ability to Follow Directions: Good Speech Pattern: Clear Hallucinations: None Delusions: Paranoid Ideation and Ideas of Reference Thought Process: Distracted and Slowed Thinking Thought Content: positive for [place] and positive for Poverty of Content Judgement: Poor Diagnostics Vital Signs (24Hr): Vital Signs - 24 hr 08/07/24 20:00 Respiratory Rate 18 BMI result Body Mass Index 39.2 Labs 07/05/24 12:49 07/05/24 12:49 Medications Medications Current Medications Acetaminophen (Acetaminophen 325 Mg Tablet) 650 mg PO Q6H PRN PRN Reason: Headache/Pain Mild Scale (1-3) Al Hydroxide/Mg Hydroxide (Magnesium Hydrox/Alum Hydrox 30 Ml Oral.Susp) 30 ml PO Q6H PRN PRN Reason: Heartburn/Nausea Haloperidol (Haloperidol 5 Mg Tablet) 5 mg PO TID PRN PRN Reason: Psychosis Hydroxyzine HCl (Hydroxyzine Hcl 25 Mg Tablet) 25 mg PO Q6H PRN PRN Reason: Anxiety Magnesium Hydroxide (Milk Of Magnesia 30 Ml Oral.Susp) 30 ml PO DAILY PRN PRN Reason: Constipation Pt Own (Alive! Women 's 50+ Multivitamin Gummy) 1 each PO DAILY [facility] Last Admin: 08/08/24 09:50 Dose: Not Given Olanzapine (Olanzapine 10 Mg Vial) 5 mg IM DAILY PRN PRN Reason: refusal of PO Last Admin: 07/15/24 21:20 Dose: 5 mg Trazodone HCl (Trazodone Hcl 50 Mg Tablet) 50 mg PO BEDTIME MRX1 PRN PRN Reason: Insomnia Allergies Allergies Allergy/AdvReac Type Severity Reaction Status Date / Time No Known Allergies Allergy Verified 07/04/24 19:32 Assessment & Plan Assessment & Plan (1) Schizophrenia: Status: Acute Code(s): F20.9 - Schizophrenia, unspecified Plan The patient is a 59-year-old female with a past history of psychosis had been untreated for several years. She was brought to the emergency room by her daughter who has seek guardianship and role years order since she had been noncompliant with medications and chronically psychotic. 07/27/24: Continue current regime and plan of care. 07/29 pt says she's fine. film writer offered to talk but pt said she was ok with sitting. she did however share frustration with her Zyprexa being increased and asked why...she challenged that a court order exists saying that a micro photographer has no right to order medications based the statute of [place]... which she expected film writer to understand. Pt continued to intermittently speak giberish and tell film writer to look it up. 07/30 Continue current regime/plan of care. 07/31 Continue current plan of care/regime. 08/07/23: continue current tx plan Plan 1. The patient had been committed to the hospital she has a Section 7 and 8. 2. Continue Zyprexa titrated at 15 mg p.o. q.h.s. since there were no over- sedation. We discontinue Zyprexa since there was no improvement. 3. Invega was started, no evidence of side-effects so we are increasing up to 6 mg daily on August 04. The plan is to change to Invega Sustenna. Invega Sustenna 234 mg today on August [address] We are going to order the 2nd dose of Invega next week for discharge planning. Reason for continued inpatient stay Substantial Risk for: inability to function, rapid decompensation and med/psych decompensation Time Spent With Patient Time: Total time managing care of this patient today _20___ minutes.
--- NOTE | 2024-08-09 12:58 | HO.PSYCHPN ---
Subjective Subjective Date of Service: 08/09/24 Reason For Visit: Psychosis Subjective Notes: Conditional Voluntary Interim History: The nursing staff reported the patient had been isolative social with a few patients. On interview the patient became agitated and I explained her that she scored remanded and she needs to have another shot in order to be discharged and she refused to have it. I tried to explain that she score remanded that she can not refused so she became grossly disorganized no insight into her condition. Mental Status Exam Mental Status Exam Patient Appearance: Well Grooomed Patient Orientation: Person and Situation Level of Consciousness: Awake and Appropriate Patient Behavior: Guarded Mood Description: Labile Affect Description: Labile Patient Cognition Impaired: Yes Ability to Follow Directions: Good Speech Pattern: Clear Hallucinations: None Delusions: Paranoid Ideation and Ideas of Reference Thought Process: Distracted and Slowed Thinking Thought Content: positive for [place] and positive for Poverty of Content Judgement: Poor Diagnostics Vital Signs (24Hr): BMI result Body Mass Index 39.2 Labs 07/05/24 12:49 07/05/24 12:49 Medications Medications Current Medications Acetaminophen (Acetaminophen 325 Mg Tablet) 650 mg PO Q6H PRN PRN Reason: Headache/Pain Mild Scale (1-3) Al Hydroxide/Mg Hydroxide (Magnesium Hydrox/Alum Hydrox 30 Ml Oral.Susp) 30 ml PO Q6H PRN PRN Reason: Heartburn/Nausea Haloperidol (Haloperidol 5 Mg Tablet) 5 mg PO TID PRN PRN Reason: Psychosis Hydroxyzine HCl (Hydroxyzine Hcl 25 Mg Tablet) 25 mg PO Q6H PRN PRN Reason: Anxiety Magnesium Hydroxide (Milk Of Magnesia 30 Ml Oral.Susp) 30 ml PO DAILY PRN PRN Reason: Constipation Pt Own (Alive! Women 's 50+ Multivitamin Gummy) 1 each PO DAILY [facility] Last Admin: 08/09/24 09:08 Dose: Not Given Olanzapine (Olanzapine 10 Mg Vial) 5 mg IM DAILY PRN PRN Reason: refusal of PO Last Admin: 07/15/24 21:20 Dose: 5 mg Trazodone HCl (Trazodone Hcl 50 Mg Tablet) 50 mg PO BEDTIME MRX1 PRN PRN Reason: Insomnia Allergies Allergies Allergy/AdvReac Type Severity Reaction Status Date / Time No Known Allergies Allergy Verified 07/04/24 19:32 Assessment & Plan Assessment & Plan (1) Schizophrenia: Status: Acute Code(s): F20.9 - Schizophrenia, unspecified Plan The patient is a 59-year-old female with a past history of psychosis had been untreated for several years. She was brought to the emergency room by her daughter who has seek guardianship and role years order since she had been noncompliant with medications and chronically psychotic. 07/27/24: Continue current regime and plan of care. 07/29 pt says she's fine. check writer salesperson offered to talk but pt said she was ok with sitting. she did however share frustration with her Zyprexa being increased and asked why...she challenged that a court order exists saying that a antique collector has no right to order medications based the statute [place]... which she expected check writer salesperson to understand. Pt continued to intermittently speak lavelle and tell check writer salesperson to look it up. 07/30 Continue current regime/plan of care. 07/31 Continue current plan of care/regime. 08/07/23: continue current tx plan Plan 1. The patient had been committed to the hospital she has a Section 7 and 8. 2. Continue Zyprexa titrated at 15 mg p.o. q.h.s. since there were no over-sedation. We discontinue Zyprexa since there was no improvement. 3. Invega was started, no evidence of side-effects so we are increasing up to 6 mg daily on August 04. The plan is to change to Invega Sustenna. Invega Sustenna 234 mg today on August [address] We are going to order the 2nd dose of Invega next week for discharge planning. Reason for continued inpatient stay Substantial Risk for: inability to function, rapid decompensation and med/psych decompensation Time Spent With Patient Time: Total time managing care of this patient today __20__ minutes.
--- NOTE | 2024-08-10 13:11 | P.PNPSI_ITS ---
Subjective Subjective Date of Service: 08/10/24 Reason For Visit: Psychosis Subjective Notes: Section 7 and Section 8 Interim History: The nursing staff reported the patient slept 7 hours. She had been isolative. On interview the patient denies new symptoms no insight into her condition. Mental Status Exam Mental Status Exam Patient Appearance: Appropriate Patient Orientation: Person and Situation Level of Consciousness: Awake and Appropriate Patient Behavior: Guarded and Passive Mood Description: Withdrawn Affect Description: Constricted Patient Cognition Impaired: Yes Ability to Follow Directions: Good Speech Pattern: Clear Hallucinations: None Delusions: Paranoid Ideation and Ideas of Reference Thought Process: Distracted and Slowed Thinking Thought Content: positive for [place] and positive for Poverty of Content Judgement: Fair Diagnostics Vital Signs (24Hr): BMI result Body Mass Index 39.2 Labs 07/05/24 12:49 07/05/24 12:49 Medications Medications Current Medications Acetaminophen (Acetaminophen 325 Mg Tablet) 650 mg PO Q6H PRN PRN Reason: Headache/Pain Mild Scale (1-3) Al Hydroxide/Mg Hydroxide (Magnesium Hydrox/Alum Hydrox 30 Ml Oral.Susp) 30 ml PO Q6H PRN PRN Reason: Heartburn/Nausea Haloperidol (Haloperidol 5 Mg Tablet) 5 mg PO TID PRN PRN Reason: Psychosis Hydroxyzine HCl (Hydroxyzine Hcl 25 Mg Tablet) 25 mg PO Q6H PRN PRN Reason: Anxiety Magnesium Hydroxide (Milk Of Magnesia 30 Ml Oral.Susp) 30 ml PO DAILY PRN PRN Reason: Constipation Pt Own (Alive! Women 's 50+ Multivitamin Gummy) 1 each PO DAILY [facility] Last Admin: 08/10/24 10:20 Dose: Not Given Olanzapine (Olanzapine 10 Mg Vial) 5 mg IM DAILY PRN PRN Reason: refusal of PO Last Admin: 07/15/24 21:20 Dose: 5 mg Trazodone HCl (Trazodone Hcl 50 Mg Tablet) 50 mg PO BEDTIME MRX1 PRN PRN Reason: Insomnia Allergies Allergies Allergy/AdvReac Type Severity Reaction Status Date / Time No Known Allergies Allergy Verified 07/04/24 19:32 Assessment & Plan Assessment & Plan (1) Schizophrenia: Status: Acute Code(s): F20.9 - Schizophrenia, unspecified Plan The patient is a 59-year-old female with a past history of psychosis had been untreated for several years. She was brought to the emergency room by her daughter who has seek guardianship and role years order since she had been noncompliant with medications and chronically psychotic. 07/27/24: Continue current regime and plan of care. 07/29 pt says she's fine. insurance underwriter sales offered to talk but pt said she was ok with sitting. she did however share frustration with her Zyprexa being increased and asked why...she challenged that a court order exists saying that a truck repair service estimator has no right to order medications based the statute [place]... which she expected insurance underwriter sales to understand. Pt continued to intermittently speak lavelle and tell insurance underwriter sales to look it up. 07/30 Continue current regime/plan of care. 07/31 Continue current plan of care/regime. Plan 1. The patient had been committed to the hospital she has a Section 7 and 8. 2. Continue Zyprexa titrated at 15 mg p.o. q.h.s. since there were no over- sedation. Later on, we realized that the patient did not respond well to this medication 3. Reassessment results. 4. We decided to change to [facility] and later on transferred to [facility] 2 assured compliance. Reason for continued inpatient stay Substantial Risk for: inability to function, rapid decompensation and med/psych decompensation Time Spent With Patient Time: Total time managing care of this patient today __20__ minutes.
[2024-08-11] MEDS: Paliperidone Palmitate 156 MG/ML SYRINGE IM (12:21)
--- NOTE | 2024-08-11 14:22 | HO.PSYCHPN ---
Subjective Subjective Date of Service: 08/11/24 Reason For Visit: Psychosis Subjective Notes: Section 7 and Section 8 Interim History: The nursing staff reported the patient had being compliant with treatment, eating well. Today we had a long conversation over the phone with her daughter who is the guardian. Unfortunately the patient does not have any insight into her condition. So far she accepted Invega Sustenna 156. We will discharge her tomorrow. On interview the patient does not have any side she was pleased to be discharged Mental Status Exam Mental Status Exam Patient Appearance: Appropriate Patient Orientation: Person and Situation Level of Consciousness: Awake and Appropriate Patient Behavior: Guarded and Passive Mood Description: Withdrawn Affect Description: Constricted Patient Cognition Impaired: Yes Ability to Follow Directions: Good Speech Pattern: Clear Hallucinations: None Delusions: Paranoid Ideation and Ideas of Reference Thought Process: Evasive Thought Content: positive for [place] and positive for Poverty of Content Judgement: Poor Diagnostics Vital Signs (24Hr): BMI result Body Mass Index 39.2 Labs 07/05/24 12:49 07/05/24 12:49 Medications Medications Current Medications Acetaminophen (Acetaminophen 325 Mg Tablet) 650 mg PO Q6H PRN PRN Reason: Headache/Pain Mild Scale (1-3) Al Hydroxide/Mg Hydroxide (Magnesium Hydrox/Alum Hydrox 30 Ml Oral.Susp) 30 ml PO Q6H PRN PRN Reason: Heartburn/Nausea Haloperidol (Haloperidol 5 Mg Tablet) 5 mg PO TID PRN PRN Reason: Psychosis Hydroxyzine HCl (Hydroxyzine Hcl 25 Mg Tablet) 25 mg PO Q6H PRN PRN Reason: Anxiety Magnesium Hydroxide (Milk Of Magnesia 30 Ml Oral.Susp) 30 ml PO DAILY PRN PRN Reason: Constipation Pt Own (Alive! Women 's 50+ Multivitamin Gummy) 1 each PO DAILY [facility] Last Admin: 08/11/24 09:32 Dose: Not Given Olanzapine (Olanzapine 10 Mg Vial) 5 mg IM DAILY PRN PRN Reason: refusal of PO Last Admin: 07/15/24 21:20 Dose: 5 mg Trazodone HCl (Trazodone Hcl 50 Mg Tablet) 50 mg PO BEDTIME MRX1 PRN PRN Reason: Insomnia Allergies Allergies Allergy/AdvReac Type Severity Reaction Status Date / Time No Known Allergies Allergy Verified 07/04/24 19:32 Assessment & Plan Assessment & Plan (1) Schizophrenia: Status: Acute Code(s): F20.9 - Schizophrenia, unspecified Plan The patient is a 59-year-old female with a past history of psychosis had been untreated for several years. She was brought to the emergency room by her daughter who has seek guardianship and role years order since she had been noncompliant with medications and chronically psychotic. 07/27/24: Continue current regime and plan of care. 07/29 pt says she's fine. mortgage or loan underwriter offered to talk but pt said she was ok with sitting. she did however share frustration with her Zyprexa being increased and asked why...she challenged that a court order exists saying that a production line has no right to order medications based the statute [place]... which she expected mortgage or loan underwriter to understand. Pt continued to intermittently speak lavelle and tell mortgage or loan underwriter to look it up. 07/30 Continue current regime/plan of care. 07/31 Continue current plan of care/regime. Plan 1. The patient had been committed to the hospital she has a Section 7 and 8. 2. Continue Zyprexa titrated at 15 mg p.o. q.h.s. since there were no over-sedation. Later on, we realized that the patient did not respond well to this medication 3. Reassessment results. 4. We decided to change to Invega and later on transferred to Invega Sustenna 2 assured compliance. First dose of Invega 234 was done last week 2nd dose of Invega Sustenna 156 mg was on August 11. 5. Discharge tomorrow with Invega Sustenna 156 for next month Reason for continued inpatient stay Substantial Risk for: inability to function, rapid decompensation and med/psych decompensation Time Spent With Patient Time: Total time managing care of this patient today __20__ minutes.
[2024-08-11 19:58] VITALS: RESP 18
--- NOTE | 2024-08-12 06:54 | P.DS_ITS ---
DS: Providers Provider Date of Service: 08/12/24 Date of admission: 07/05/24 15:46 Date of discharge: 08/12/24 Primary care physician: Yulia Del Toro CNP Attending physician on discharge: José Marinelli DS: Diagnosis Discharge Diagnosis (1) Schizophrenia: Status: Acute DS: Medications Discharge Medications Home Medications: Home Medications ?Medication ?Instructions ?Recorded ?Confirmed No Known Home Meds 07/05/24 07/05/24 Mental Status Exam Mental Status Exam Patient Appearance: Appropriate Patient Orientation: Person and Situation Level of Consciousness: Awake Patient Behavior: Guarded and Passive Mood Description: Withdrawn Affect Description: Constricted Patient Cognition Impaired: Yes Ability to Follow Directions: Good Speech Pattern: Clear Hallucinations: None Delusions: Paranoid Ideation Thought Process: Distracted and Slowed Thinking Thought Content: positive for [place] and positive for Poverty of Content Judgement: Poor DS: Summary Hospital Course Hospital Course: The patient is a 59-year-old /[place] descendant female, living with her daughter, recently moved from [place] with a past history of psychotic symptoms. The patient had been refusing treatment for several years and she recently was moved to her daughter's place in [place] for continuation of care. The patient had been grossly psychotic, violent and she was rushed to the emergency room since the family called 911. The patient was assessed in the emergency room, and transferring to this facility for psychiatric stabilization. Please see the HPI of the admission note for further details. On admission the patient was grossly psychotic, speaking in a mixed of Turkish, South Korean and another unknown language. She adamantly denies any psychotic symptoms but her daughter reported that she had been violent, delusional, unable to take care of herself. She refused to sign a conditional voluntary and initially she t was on a 12 b.. Later, we had to filed for Section 7 and 8 and eventually we got a treatment over objection order and a Section 7. The patient was known by the hospital since she had a similar episode 5 year and she was treated successfully with Zyprexa so we restarted Zyprexa titrated up slowly to 20 mg p.o. daily with no improvement. The patient was psychotic, so we had to change to Invega Sustenna, we tried initially Invega p.o. with no side effects. We decided to change to Invega Sustenna to ensure compliance in the community. She received an initial loading dose of 234 mg and later on 6 days after Invega Sustenna 156 IM. Her next dose will be Invega Sustenna 156 mg will be on September 11. The patient tolerated fairly well the treatment with no side effects. Even though that there was some improvement on her the elusive thinking and aggressive behavior, she was still with no insight into her condition. The patient was discharged to the care of her daughter, she is filing for guardianship and a community order for treatment over objection. Also several ancillary services were referred. At the moment of the discharge the patient did not have safety concerns. Time spent discussing smoking cessation with patient: 3 to 10 minutes Status at Discharge Cognitive/behavioral status at discharge: The patient refused to do cognitive assessments but her Silvano test was quite low. She was able to do her own ADL less with problems Functional status at discharge: independent ambulation Overall status at discharge: patient is back to baseline Time Spent with Patient Time attestation: Total time managing care of this patient today __30__ minutes. Time spent: Less than 30 minutes Discharge Plan Discharge Anticipated Discharge Date/Time: 08/12/24 10:00 Patient Disposition: Home, Self-Care Discharge Diagnosis: Schizophrenia late onset Referrals: [facility] [Other] - 3-5 Days (A referral has been put in for [facility] by your daughter Dianna. They will reach out to you with in 3-5 days after discharge for an intake evaluation.) Jena Angelo NP [Nurse Practitioner] - 08/31/24 12:00 pm (You will see Jena Angelo on 08/31/24 for psychiatry. You have also been referred to [facility] for therapy as well. You will be currently on the waitlist for that but they will contact you soon regarding that. They asked that you come 15 minutes before the appointment to fill out intake paperwork. Please call the number listed if you need to reschedule or cancel the appointment.) Discharge Medications: New Invega Sustenna 156 mg/mL syringe 156 mg IM Q30D Qty: 1 0RF Rx Instructions: Next dose 09/11/2024 Discharge Orders: Discharge Order (Routine); Ordered 08/12/24 Ordered By: José Marinelli Diet: Advance to usual diet Activity on Discharge: As tolerated Stand Alone Forms: Patient Portal Discharge page Print Language: Turkish Care Plan Goals: Care plan goals achieved in this admission Health Concerns: Continue treatment with primary care physician Plan of Treatment: Continue outpatient services in Psychiatry. Assessment: Elderly female with a past history of psychotic symptoms and treated for years who was admitted for exacerbation of psychosis with disorganized behavior and violence. We needed to file a Section 7 and 8 and she was initially treated with Zyprexa with poor improvement so we changed to Invega Sustenna at the moment of the discharge, the patient was able to contract for safety and no safety concerns were noted. The family is looking for a guardianship and a community treatment over objection court order. At the moment of the discharge, the patient did not have any insight into her condition but there were no safety concerns.
[2024-08-12 08:00] VITALS: RESP 18
== END 2024-08-12 15:45 | disposition home or self-care (01) | DRG 750 ==
LOC: HO.ED 07-05 16:21 → HO.PGERI 07-05 16:26
PROVIDERS: Admitting Provider Psychiatry & Neurology Psychiatry; Emergency Provider Emergency Medicine; PCP Nurse Practitioner Family; Visit Provider Psychiatry & Neurology Psychiatry
DX: F20.9 Schizophrenia, unspecified (principal); Z91.148 Patient's other noncompliance with medication regimen for other reason; F17.210 Nicotine dependence, cigarettes, uncomplicated; Z71.6 Tobacco abuse counseling; Z91.199 Patient's noncompliance with other medical treatment and regimen due to unspecified reason
CPT/HCPCS: 36415; 80053; 80307; 84484; 85025; 99285; J2359; J2426

== ENCOUNTER → 2024-07-05 15:46 | Outpatient (BNV) | payer OTHER, SELFPAY | PROVIDERS: Admitting Provider Psychiatry & Neurology Psychiatry; Emergency Provider Emergency Medicine; PCP Nurse Practitioner Family; Visit Provider Psychiatry & Neurology Psychiatry | DX: F20.1 Disorganized schizophrenia (principal) | CPT/HCPCS: 90792; 99231; 99232 ==